=== PATIENT | female | born 1945 | race Caucasian/White ===

== ENCOUNTER 2019-09-28 01:48 | Inpatient (IN) ==
[~2019-09-28 01:48] MED LIST: NS 2,000 ML ONE
[2019-09-28] MEDS ORDERED: NS 1,000 ML IV ONE ×3 (01:54→05:43)
[2019-09-28] MEDS ORDERED: NS 500 ML IV ONE ×3 (01:54→03:21)
[2019-09-28] MEDS ORDERED: VANCOMYCIN 1 GM/NS 1 GM/250 ML IVPB IV ONE ×2 (01:57)
[2019-09-28] MEDS ORDERED: LEVAQUIN 750 MG/D5W 750 MG/150 ML IVPB IV ONE (01:57)
--- NOTE | 2019-09-28 02:06 | PROVIDER DOCUMENTATION ---
HPI-Fever - General Chief Complaint: DKA ALERT Stated Complaint: AMS Time Seen by Provider: 09/28/19 01:53 Source: EMS Unable to obtain history due to:: altered Allergies/Adverse Reactions: Patient Allergies Allergy/AdvReac Type Severity Reaction Status Date / Time amoxicillin trihydrate * Allergy ANAPHYLAXIS Verified 09/28/19 03:51 [From Amoxil] cephalexin [From Keflex] Allergy Unknown Verified 09/28/19 03:51 codeine Allergy ANAPHYLAXIS Verified 09/28/19 03:51 ondansetron HCl * Allergy MOUGH AND Verified 09/28/19 03:51 [From Zofran (as TONGU hydrochloride)] SWELLING phenazopyridine HCl * Allergy SWELLING Verified 09/28/19 03:51 [From Pyridium] Sulfa (Sulfonamide Allergy ANAPHYLAXIS Verified 09/28/19 03:51 Antibiotics) trimethobenzamide HCl * Allergy ANAPHYLAXIS Verified 09/28/19 03:51 [From Tigan] Home Medications: Home Medication List Medication Instructions Recorded Confirmed Last Taken Type Clopidogrel Bisulfate [Plavix] 75 mg PO QAM 05/03/15 11/06/18 07/27/18 History Insulin Lispro [Humalog] 15 unit SUBQ DAILY 05/03/15 11/06/18 08/16/18 History Metformin [Glucophage] 500 mg PO 4XDAY 05/03/15 11/06/18 08/16/18 History Insulin Detemir [Levemir] 35 unit SUBQ BID 07/14/16 11/06/18 08/16/18 20:00 History Pantoprazole [Protonix] 40 mg PO DAILY@0700 07/14/16 11/06/18 08/15/18 History Gabapentin 600 mg PO TID 08/10/18 11/06/18 08/16/18 20:00 History Levofloxacin [Levaquin] 500 mg PO DAILY 7 Days #7 tab 11/06/18 Unknown Rx Promethazine [Phenergan] 25 mg PO Q6H PRN PRN #20 tab 11/06/18 Unknown Rx Sulfamethoxazole/Trimethoprim 2 ea PO BID #20 tab 11/06/18 Unknown Rx [Bactrim Ds Tablet] - History of Present Illness-Fever Nature of Presenting Problem: hx from EMS. She has N/V/D since Wednesday. Increasing weekness today, no longer able to ambulate. No family available at initial exam. EMS reports that family gave 70 units insulin last pm, but she did not eat. No other hx available. When family arrived, said she herself had had surgery today, came home, found pt to be worse, to weak to stand. No fever known. Aded that pt has hx of UTI, can add nothing else Review of Systems - Adult - REVIEW OF SYSTEMS - ADULT ROS:: unobtainable per condition Constitutional: reports: other (unknown about fever) Eyes: reports: no symptoms reported Ears, Nose, Mouth & Throat: reports: no symptoms reported Gastrointestinal: reports: see HPI Neurological: reports: other (altered, weak, nonverbal) Psychiatric: reports: no symptoms reported Endocrine: reports: other (BS high) Past History - Adult - PAST MEDICAL HISTORY-ADULT Review of Records: reports: Medications Reviewed, Social history reviewed & non- contributory. Major Childhood Illnesses: reports: denies history Cardiovascular: reports: NC (stent placement) Respiratory: reports: denies history Gastrointestinal: reports: denies history Obstetrical/Gynecological: reports: denies history Genitourinary: reports: chronic UTI's Musculoskeletal: reports: denies history Neurological: reports: CVA Endocrine/Immune: reports: Diabetes Other Conditions: reports: denies history - IMMUNIZATION STATUS Childhood Immunizations: See Nurse Assessment Flu Vaccine: See Nurse Assessment - FAMILY HISTORY Family History: reviewed, not pertinent Physical Exam-General - PHYSICAL EXAM-ADULT Initial Vital Signs Reviewed: Yes - CONSTITUTIONAL General Appearance: severe distress, lethargic - EYES Eyes: PERRL/EOMI, pale conjunctivae - HEAD, EARS, NOSE, MOUTH & THROAT HENMT: other (membranes dry) - NECK Neck: supple - RESPIRATORY Respiratory: lungs clear, respiratory distress (mild) - CARDIOVASCULAR Cardiovascular: tachycardia - GASTROINTESTINAL (ABDOMEN) Abdominal Exam: non tender, soft, abnormal bowel sounds (decreased) - GENITOURINARY Female Genitalia/Pelvic Exam: deferred Rectal Exam: deferred - MUSCULOSKELETAL Back Exam: other (deferred due to pt condition) Extremity: normal inspection, other - SKIN Integumentary: other (decreased turgor, pale) - NEUROLOGIC Neurologic: other (untestable) - PSYCHIATRIC Psych/Mental Status: other (unresponsive to voice, pain) Progress - PLAN OF CARE/RESULTS Progress/Plan/Lab Results: Vital Signs - 8 hr 09/28/19 01:45 09/28/19 02:54 09/28/19 03:21 Temperature 98.2 F Pulse Rate 120 H 120 H 118 H Respiratory Rate 29 H 27 H 25 H Blood Pressure 80/38 98/47 83/50 O2 Sat by Pulse Oximetry 97 94 L 96 09/28/19 03:38 09/28/19 03:59 09/28/19 04:11 Temperature Pulse Rate 120 H 116 H 116 H Respiratory Rate 26 H 27 H 26 H Blood Pressure 93/60 98/48 100/54 O2 Sat by Pulse Oximetry 95 96 96 Laboratory Results - last 24 hr 09/28/19 09/28/19 09/28/19 01:50 01:50 01:50 WBC 26.98 H RBC 4.27 Hgb 10.8 L Hct 32.9 L MCV 77.0 L MCH 25.3 L MCHC 32.8 L RDW Std Deviation 13.9 Plt Count 239 MPV 9.8 Immature Gran % (Auto) 2.2 H Neut % (Auto) 90.1 H Lymph % (Auto) 5.0 L [place] % (Auto) 2.3 Eos % (Auto) 0.3 Baso % (Auto) 0.1 Immature Gran # (Auto) 0.60 H Neut # (Auto) 24.31 H Lymph # (Auto) 1.35 [place] # (Auto) 0.62 H Eos # (Auto) 0.08 Baso # (Auto) 0.02 Segmented Neutrophils 78 H Band Neutrophils 8 H Lymphocytes 10 L Monocytes 1 Metamyelocytes 2.0 Atypical Lymphocytes 1.0 Hypochromia OCCASIONAL Vacuolization 1+ Poikilocytosis 1+ Microcytosis OCCASIONAL Ovalocytes 1+ PT INR PTT (Actin FS) Specimen Type Sample Site pH pCO2 pO2 HCO3 Base Excess Oxyhemoglobin ABG O2 Sat (Calculated) ABG O2 Saturation ABG Carboxyhemoglobin ABG Methemoglobin Turner Test A-a O2 Difference Total Hemoglobin Lactate Liter Flow Blood Gas Modality FiO2 % Sodium Potassium Chloride Carbon Dioxide Anion Gap BUN Creatinine Estimated GFR/1.73 m2 BUN/Creatinine Ratio Glucose Calculated Osmolality Calcium Magnesium Total Bilirubin AST ALT Alkaline Phosphatase Creatine Kinase Troponin T Total Protein Albumin Globulin Albumin/Globulin Ratio Plasma Lactate 7.5 H* Urine Source Urine Color Urine Turbidity Urine pH Ur Specific [place] Urine Protein Ur Glucose (Stick) Ur Ketones (Stick) Urine Blood Urine Nitrite Urine Bilirubin Urobilinogen Dipstick Urine Leukocytes Urine WBC (Auto) Urine RBC (Auto) U Epithel Cells (Auto) Urine Bacteria (Auto) Acetone Level NEGATIVE 09/28/19 09/28/19 09/28/19 01:50 01:50 01:50 WBC RBC Hgb Hct MCV MCH MCHC RDW Std Deviation Plt Count MPV Immature Gran % (Auto) Neut % (Auto) Lymph % (Auto) [place] % (Auto) Eos % (Auto) Baso % (Auto) Immature Gran # (Auto) Neut # (Auto) Lymph # (Auto) [place] # (Auto) Eos # (Auto) Baso # (Auto) Segmented Neutrophils Band Neutrophils Lymphocytes Monocytes Metamyelocytes Atypical Lymphocytes Hypochromia Vacuolization Poikilocytosis Microcytosis Ovalocytes PT 16.2 H INR 1.23 PTT (Actin FS) 33.4 Specimen Type Sample Site pH pCO2 pO2 HCO3 Base Excess Oxyhemoglobin ABG O2 Sat (Calculated) ABG O2 Saturation ABG Carboxyhemoglobin ABG Methemoglobin Turner Test A-a O2 Difference Total Hemoglobin Lactate Liter Flow Blood Gas Modality FiO2 % Sodium 137 Potassium 3.8 Chloride 100 Carbon Dioxide 17 L Anion Gap 21 BUN 34 H Creatinine 3.0 H Estimated GFR/1.73 m2 15 BUN/Creatinine Ratio 11 Glucose 340 H Calculated Osmolality 295 Calcium 8.8 Magnesium 1.4 L Total Bilirubin 0.90 AST 113 H ALT 103 H Alkaline Phosphatase 194 H Creatine Kinase 146 Troponin T 0.429 H* Total Protein 6.8 Albumin 3.6 Globulin 3.0 Albumin/Globulin Ratio 1.0 Plasma Lactate Urine Source Urine Color Urine Turbidity Urine pH Ur Specific [place] Urine Protein Ur Glucose (Stick) Ur Ketones (Stick) Urine Blood Urine Nitrite Urine Bilirubin Urobilinogen Dipstick Urine Leukocytes Urine WBC (Auto) Urine RBC (Auto) U Epithel Cells (Auto) Urine Bacteria (Auto) Acetone Level 09/28/19 09/28/19 01:59 02:00 WBC RBC Hgb Hct MCV MCH MCHC RDW Std Deviation Plt Count MPV Immature Gran % (Auto) Neut % (Auto) Lymph % (Auto) [place] % (Auto) Eos % (Auto) Baso % (Auto) Immature Gran # (Auto) Neut # (Auto) Lymph # (Auto) [place] # (Auto) Eos # (Auto) Baso # (Auto) Segmented Neutrophils Band Neutrophils Lymphocytes Monocytes Metamyelocytes Atypical Lymphocytes Hypochromia Vacuolization Poikilocytosis Microcytosis Ovalocytes PT INR PTT (Actin FS) Specimen Type ARTERIAL Sample Site R RADIAL pH 7.42 pCO2 23 L pO2 73 HCO3 18.5 L Base Excess -8.2 L Oxyhemoglobin 94.2 L ABG O2 Sat (Calculated) 12.9 L ABG O2 Saturation 98.2 ABG Carboxyhemoglobin 2.60 H ABG Methemoglobin 1.5 Turner Test YES A-a O2 Difference 169.0 Total Hemoglobin 9.7 L Lactate 6.50 H* Liter Flow 4.5 Blood Gas Modality CAN[place]ULA FiO2 % 38.0 Sodium Potassium Chloride Carbon Dioxide Anion Gap BUN Creatinine Estimated GFR/1.73 m2 BUN/Creatinine Ratio Glucose Calculated Osmolality Calcium Magnesium Total Bilirubin AST ALT Alkaline Phosphatase Creatine Kinase Troponin T Total Protein Albumin Globulin Albumin/Globulin Ratio Plasma Lactate Urine Source CATH Urine Color ORANGE Urine Turbidity TURBID Urine pH 5.5 Ur Specific [place] 1.013 Urine Protein 200 A Ur Glucose (Stick) NEGATIVE Ur Ketones (Stick) NEGATIVE Urine Blood LARGE A Urine Nitrite NEGATIVE Urine Bilirubin NEGATIVE Urobilinogen Dipstick NORMAL Urine Leukocytes LARGE A Urine WBC (Auto) TNTC A Urine RBC (Auto) TNTC A U Epithel Cells (Auto) >10 A Urine Bacteria (Auto) 4+ Acetone Level Orders Category Date Time Status Admit - [facility] Routine AdmDCTranf 09/28/19 04:15 Active Cardiac Monitoring DIRECTED Care 09/28/19 01:54 Active [place] Cath Insertion ORDERED Care 09/28/19 01:54 Active IV Insertion ORDERED Care 09/28/19 01:54 Active IV Insertion ORDERED Care 09/28/19 01:54 Completed IV Insertion ORDERED Care 09/28/19 01:57 Active Intake and Output-Strict ORDERED Care 09/28/19 01:54 Active Intake and Output-Strict ORDERED Care 09/28/19 01:57 Active Notify MD of + Sepsis Screen NOW Care 09/28/19 01:54 Active Notify MD/PA/AUTO PORTER for exam NOW Care 09/28/19 01:54 Active Notify MD/PA/AUTO PORTER for exam NOW Care 09/28/19 01:57 Active Repeat Vital Signs .Blood Pressure Care 09/28/19 01:54 Active Repeat Vital Signs .Heart Rate Care 09/28/19 01:54 Active Repeat Vital Signs .Oxygen Saturation Care 09/28/19 01:54 Active Repeat Vital Signs .Respiratory Rate Care 09/28/19 01:54 Active Repeat Vital Signs .Temp Care 09/28/19 01:54 Active CHEST-1 VIEW [RAD] Stat Exams 09/28/19 01:54 Taken ABG [RESP] Routine Lab 09/28/19 02:00 Completed ACETONE SERUM [CHEM] Stat Lab 09/28/19 01:50 Completed BLOOD CULTURE [BLDCUL] Stat Lab 09/28/19 02:01 Ordered CBC WITH DIFF [HEME] Stat Lab 09/28/19 01:50 Completed CK PROFILE [SP CHEM] Stat Lab 09/28/19 01:50 Completed COMPREHENSIVE METABOLIC PANEL [CHEM] Stat Lab 09/28/19 01:50 Completed LACTATE, PLASMA [CHEM] Lab 09/28/19 05:00 Uncollected LACTATE, PLASMA [CHEM] Lab 09/28/19 08:00 Uncollected LACTATE, PLASMA [CHEM] Timed Lab 09/28/19 01:50 Completed MAGNESIUM [CHEM] Stat Lab 09/28/19 01:50 Completed PROTIME WITH INR [COAG] Stat Lab 09/28/19 01:50 Completed PTT [COAG] Stat Lab 09/28/19 01:50 Completed TROPONIN T Stat Lab 09/28/19 01:50 Completed URINALYSIS W/POSS RFLX CULT [URINALYSIS] Stat Lab 09/28/19 01:59 Completed URINE CULTURE [RM] Routine Lab 09/28/19 02:33 Ordered 0.9% Sodium Chloride Inj [Ns] 1,000 ml Med 09/28/19 01:54 Discontinued IV As Directed mls/hr 0.9% Sodium Chloride Inj [Ns] 1,000 ml Med 09/28/19 01:57 Discontinued IV As Directed mls/hr 0.9% Sodium Chloride Inj [Ns] 2,000 ml Med 09/28/19 01:47 Discontinued .ROUTE As directed 0.9% Sodium Chloride Inj [Ns] 250 ml Med 09/28/19 03:15 Active Phenylephrine [Kai-Synephrine] 50 mg IV As Directed mls/hr 0.9% Sodium Chloride Inj [Ns] 250 ml Med 09/28/19 03:15 Discontinued Phenylephrine [Kai-Synephrine] 50 mg IV As Directed mls/hr 0.9% Sodium Chloride Inj [Ns] 250 ml Med 09/28/19 03:02 Discontinued .ROUTE As directed 0.9% Sodium Chloride Inj [Ns] 500 ml Med 09/28/19 01:54 Discontinued IV 999 mls/hr 0.9% Sodium Chloride Inj [Ns] 500 ml Med 09/28/19 01:57 Discontinued IV 999 mls/hr 0.9% Sodium Chloride Inj [Ns] 500 ml Med 09/28/19 03:21 Discontinued IV KVO mls/hr Dextrose 5%-0.45% NaCl Inj [D5 1/2 Ns] 250 ml Med 09/28/19 03:15 Discontinued Norepinephrine [Levophed] 8 mg IV As Directed mls/hr Insulin Human Regular ([place] [Humulin R ([place])] Med 09/28/19 03:15 Discontinued 1 units .ROUTE .STK-MED ONE Insulin Human Regular [Humulin R] Med 09/28/19 03:13 Discontinued 6 unit IV NOW ONE Levofloxacin 750 mg/D5w [Levaquin 750 mg/D5w] Med 09/28/19 01:57 Discontinued 750 mg in 150 ml IV NOW Norepinephrine [Levophed] Med 09/28/19 03:02 Discontinued 8 mg .ROUTE .STK-MED ONE Phenylephrine [Kai-Synephrine] Med 09/28/19 03:04 Discontinued 50 mg .ROUTE .STK-MED ONE Vancomycin 1 gm/Ns Med 09/28/19 01:57 Discontinued 1 gm in 250 ml IV NOW Vancomycin 1 gm/Ns Med 09/28/19 01:57 Discontinued 1 gm in 250 ml IV NOW Oxygen Device Stat Oth 09/28/19 01:54 Active Transfer/Admit Order [TRANSFER] Routine Transfer 09/28/19 04:14 Ordered Result Diagrams: 09/28/19 01:50 09/28/19 01:50 - EKG 1 Time of EKG reading by physician:: 02:47 EKG Read and Signed by:: Hubert Garcia EKG Interpretation (*Must complete 3 of following elements*): Abnormal Rate: 120 Rhythm: sinus tach [place]: normal QRS: normal ST Wave: non-specific ST changes (laterally) - XRAY 1 XRAY Study: Chest Impression: Normal - CONSULTS/PCP/HOSPITALIST Notification #1 *Consult/PCP/Hospitalist*: Yunio Time Discussed: 03:14 Consult Disposition: Admit Departure - Departure Date of Disposition Decision: 09/28/19 Time of Disposition Decision: 02:07 DIAGNOSIS: Septic shock UTI (urinary tract infection) Qualifiers: Urinary tract infection type: site unspecified Hematuria presence: with hematuria Qualified Code(s): N39.0 - Urinary tract infection, site not specified Disposition: ADMITTED INPATIENT 09 Certified Medical Emergency: Emergent Condition: Critical Referrals and Follow-Ups: None,PCP [Primary Care Provider] - - Critical Care Note This patient required my direct & personal management of CC.: Yes Attestation - Physician/ ADOLFO Attestation Patient care was provided by Advanced Practice Provider:: No The physician spent face to face time with patient:: Yes Advanced Practice Provider documentation review:: Supervising physician onsite and consulted in the evaluation and care of this patient. The physician did have a face to face encounter with the patient. Sepsis: Tissue Perfusion Assmt - Physical Exam Assessment Date: 09/28/19 Time Assessment Initialized: 04:23 Vital Signs: Last Vital Signs Temp 98.2 F 09/28/19 01:45 Pulse 116 H 09/28/19 04:11 Resp 26 H 09/28/19 04:11 BP 100/54 09/28/19 04:11 Pulse Ox 96 09/28/19 04:11 Height 5 ft 4 in Weight 61.235 kg Lung Sounds:: lungs clear Heart Sounds:: Regular Capillary Refill Time: Less Than 2 Seconds Peripheral Pulse Evaluation:: radial (R): 2+ Skin Exam:: pale - Impression Impression:: Tissue Perfusion Adequate
[2019-09-28 02:07] LABS: URINE SOURCE CATH
[2019-09-28 02:14] LABS: BASO# 0.02 X1000 (0.0-0.2); BASO% 0.1 % (0.0-0.8); EOS# 0.08 X1000 (0.0-0.7); EOS% 0.3 % (0.0-10.0); HEMATOCRIT 32.9 % (37.0-47.0); HEMOGLOBIN 10.8 g/dL (12.0-16.0); IMM GRAN% 2.2 % (0.0-0.5); LYMPH# 1.35 X1000 (1.2-3.4); MCH 25.3 PG (27-31); MCHC 32.8 g/dL (33-37); MONO# 0.62 X1000 (0.11-0.59); MONO% 2.3 % (1.7-9.3); MPV 9.8 FL (7.4-10.4); NEUT# 24.31 X1000 (1.4-6.5); NEUT% 90.1 % (42.2-75.2); PLT 239 X1000 (130-400); RBC 4.27 XMIL (4.2-5.4); RDW 13.9 % (11.5-14.5); WBC 26.98 X1000 (4.8-10.8)
[2019-09-28 02:22] LABS: BE -8.2 mmoll (-3.0-3.0); BLOOD TYPE ARTERIAL; HCO3-(ACT) 18.5 mmoll (20.0-26.0); METHB 1.5 % (0.0-1.5); O2(CT) 12.9 mL/dL (15.0-23.0); O2HB 94.2 % (95.0-99.0); PCO2(98.6) 23 mmHg (35-45); PO2(98.6) 73 mmHg (60-100); SAMPLE BLOOD; SAO2 98.2 % (95.0-100.0); THB 9.7 g/dL (11.5-17.4); pH(98.6) 7.42 (7.35-7.45)
[2019-09-28 02:26] LABS: ALLEN TEST YES; MODALITY CANNULA
[2019-09-28 02:29] LABS: INR 1.23; PROTIME 16.2 Seconds (11.0-16.0)
[2019-09-28 02:30] LABS: UR EPITHELIAL CELLS >10 /HPF (<10); URINE BACTERIA 4+ /HPF; URINE RBC TNTC /HPF (<10); URINE WBC TNTC /HPF (<10)
[2019-09-28 02:30] LABS: PTT 33.4 Seconds (22.3-41.8)
[2019-09-28 02:31] LABS: BILIRUBIN URINE NEGATIVE (NEGATIVE); COLOR ORANGE; GLUCOSE URINE NEGATIVE (NEGATIVE); KETONE URINE NEGATIVE (NEGATIVE); SP GRAVITY URINE 1.013; TURBIDITY URINE TURBID (CLEAR)
[2019-09-28 02:32] LABS: BLOOD URINE LARGE (NEGATIVE); PH URINE 5.5; PROTEIN URINE 200 mg/dL (NEGATIVE); UROBILINOGEN URINE NORMAL (NORMAL)
[2019-09-28 02:33] LABS: LEUKOCYTES URINE LARGE (NEGATIVE); NITRITE URINE NEGATIVE (NEGATIVE)
[2019-09-28 02:34] LABS: ALBUMIN 3.6 g/dL (3.5-5.0); CALCIUM 8.8 mg/dL (8.8-10.2); MAGNESIUM 1.4 mg/dL (1.5-2.7); POTASSIUM 3.8 mmol/L (3.5-5.1); TOTAL BILIRUBIN 0.9 mg/dL (0.20-1.00); TOTAL PROTEIN 6.8 g/dL (6.3-8.3)
[2019-09-28 02:51] LABS: BANDS 8 % (0-1); LYMPHS 10 % (21-51); MONO 1 % (1-9); SEGS 78 % (42-75)
[2019-09-28 02:52] LABS: HYPOCHROM OCCASIONAL; MICROCYTOSIS OCCASIONAL; POIKILOCYTOSIS 1+
[2019-09-28 02:53] LABS: OVALOCYTES 1+; VACUOLES 1+
[2019-09-28] MEDS ORDERED: LEVOPHED ONE (03:02)
[2019-09-28] MEDS ORDERED: NS 250 ML ONE (03:02)
[2019-09-28] MEDS ORDERED: NEO-SYNEPHRINE ONE (03:04)
[2019-09-28] MEDS ORDERED: HUMULIN R IV ONE (03:13)
[2019-09-28] MEDS ORDERED: NEO-SYNEPHRINE 50 MG in NS 250 ML IV SCH (03:15)
[2019-09-28] MEDS ORDERED: LEVOPHED 8 MG in D5 1/2 NS 250 ML IV SCH (03:15)
[2019-09-28] MEDS ORDERED: HUMULIN R (PARKWAY) ONE (03:15)
[2019-09-28] MEDS: NEO-SYNEPHRINE 50 MG in NS 250 ML IV SCH ×6 (03:18→23:30)
[2019-09-28] MEDS ORDERED: NS 1,000 ML ONE (05:38)
--- NOTE | 2019-09-28 05:49 | Diag Imaging Result Doc PS360 ---
EXAM: CHEST-1 VIEW HISTORY: sepsis TECHNIQUE: Single view COMPARISON: 04/03/2018 and 07/15/2016 FINDINGS: The lungs are well expanded. The heart is not enlarged. The vessels are not distended. There are no infiltrates. No effusion identified. Possible new tiny nodule in the left apex. IMPRESSION: Possible new tiny nodule within the left apex. Electronically signed by Mickey Powell 09/28/2019 5:47 AM
[2019-09-28] MEDS ORDERED: SODIUM CHLORIDE 0.9% INJ PRN (07:20)
[2019-09-28] MEDS ORDERED: PHENERGAN IV PRN (07:20)
[2019-09-28] MEDS ORDERED: HUMALOG SUBQ SCH (07:20)
[2019-09-28] MEDS ORDERED: FLAGYL 500 MG/NS 500 MG/100 ML IVPB IV SCH (07:20)
[2019-09-28] MEDS ORDERED: HUMALOG SUBQ ONE ×2 (07:20→17:00)
--- NOTE | 2019-09-28 08:07 | EKG Report ---
Test Performed on : 09/28/2019 07:55:19 AM Test Reason : Afib Blood Pressure : / mmHG Vent. Rate : 128 BPM Atrial Rate : 128 BPM P-R Int : 140 ms QRS Dur : 064 ms QT Int : 310 ms P-R-T Axes : 063 073 104 degrees QTc Int : 452 ms Sinus tachycardia. Septal infarct , age undetermined ST & T wave abnormality, consider lateral ischemia Abnormal ECG When compared with ECG of 28-SEP-2019 05:42, (Unconfirmed) ST no longer elevated in Inferior leads Nonspecific T wave abnormality now evident in Inferior leads T wave inversion now evident in Lateral leads Confirmed by Pradeep CRAVEN, Davian ([id number]) on 09/28/2019 8:21:58 AM
[2019-09-28] MEDS: MERREM 1 GM in NS 50 ML IV SCH ×3 (08:13→23:30)
[2019-09-28] MEDS: LR 1,000 ML IV SCH ×3 (08:14→23:29)
--- NOTE | 2019-09-28 08:37 | EKG Report ---
Test Performed on : 09/28/2019 05:42:10 AM Test Reason : ER Blood Pressure : / mmHG Vent. Rate : 136 BPM Atrial Rate : 136 BPM P-R Int : 136 ms QRS Dur : 060 ms QT Int : 276 ms P-R-T Axes : 056 066 085 degrees QTc Int : 415 ms Sinus tachycardia. Nonspecific ST abnormality Abnormal ECG When compared with ECG of 28-SEP-2019 02:45, (Unconfirmed) Nonspecific T wave abnormality no longer evident in Inferior leads Unconfirmed Result
[2019-09-28] MEDS ORDERED: HUMULIN R 100 UNIT in NS 100 ML IV SCH (09:00)
--- NOTE | 2019-09-28 09:02 | EKG Report ---
Test Performed on : 09/28/2019 02:45:36 AM Test Reason : ER Blood Pressure : / mmHG Vent. Rate : 120 BPM Atrial Rate : 120 BPM P-R Int : 126 ms QRS Dur : 070 ms QT Int : 328 ms P-R-T Axes : 077 064 092 degrees QTc Int : [address] & T wave abnormality, consider lateral ischemia Abnormal ECG When compared with ECG of 10-AUG-2018 10:44, ST now depressed in Lateral leads Nonspecific T wave abnormality now evident in Inferior leads Unconfirmed Result
[2019-09-28] MEDS: ASPIRIN PO SCH (09:32)
--- NOTE | 2019-09-28 09:42 | PROGRESS NOTE ---
DATE: 09/28/2019 SUBJECTIVE: This morning, Ms. Louise refers to be doing well, except that she still remains confused. She says she came in because she was having some burning urination. The patient is confused and is not able to give me details of any interim history. Per the ER documentation, it seems she was brought in because of nausea and vomiting, increasing weakness, and inability to ambulate any longer. Ms. Louise has been here before for a urinary tract infection. She seems to have history of diabetes mellitus and neuropathy. She denies any chest pain. Ms. Louise initially presented to [facility], and she was transferred from there to here for higher level of care. During her evaluation at [place], she was found to be hypotensive with a presenting blood pressure of 80/38, pulse of 120. At some point, her temperature also went up to 100.7. Her initial laboratory data revealed that she had elevated WBC, predominantly neutrophils, with 8% bands, and she also had 7.5 of lactate level on serum studies. OBJECTIVE: Vital Signs: This morning, blood pressure is 104/49, pulse of 133, respirations 28, temperature is 100.5 degrees, the patient is saturating 94% on 2 L. General: Ms. Louise is a 74- year-old, elderly, female. She is in bed. HEENT: She looks dry on the mucous, but pink. Chest: Good air entry bilaterally. I did not hear any crepitations. Cardiovascular: Tachycardic, but no murmurs. GI: Abdomen is soft. Some old infraumbilical surgical scar noted. Extremities: No pedal edema. SEASONAL CLERK: The patient is awake, alert, oriented to person, but disoriented to place and time. Follows basic commands and moves all extremities. LABORATORY DATA: WBC is 26.98, hemoglobin is 10.8, platelet count of 239,000. Chemistry is also reviewed. The patient's bicarb is 17, with a gap of 21. Creatinine is up to 3.0. AST and ALT are also minimally elevated. Troponins have also been elevated. The patient's urinalysis is remarkably abnormal. Of note, Ms. Louise has a history of multiple recurrent UTIs. She underwent cystoscopic exam with bilateral ureteral pyelograms on 08/17/[address] Sheffield. ASSESSMENT: 1. Shock, presumably septic, and the source is most likely from the urinary tract. Patient has hx of multiple recurrent urinary tract infections. The patient's blood pressure has improved. She was fluid resuscitated in the emergency room. We are going to continue with lactated Ringer's at 125 mL/h. Will also continue with the phenylephrine, but start titrating it down as needed. The patient has blood cultures and urine cultures done, and she is currently on antimicrobial coverage. She has had multiple Escherichia coli, Klebsiella in the past, and I am concerned this could have turned into extended spectrum beta-lactamase, so I have added carbapenem to her antibiotic coverage today. 2. Acute kidney injury, most likely from septic shock. We are going to continue to monitor this. The patient could potentially go into acute tubular necrosis. 3. High anion gap metabolic acidosis secondary to lactic acid. 4. Severe lactic acidosis secondary to septic shock. Will continue monitoring this, and the patient will continue on adequate fluid resuscitation. 5. Clinical volume depletion. Will continue with fluids. 6. Elevated glucose. So far, the patient's toxicology acetone is negative. However, I would not be surprised that she could still be in diabetic ketoacidosis because of the fact that beta- hydroxybutyrate cannot be determined here in our lab. She is going to be on insulin regimen for hyperglycemia intensive care unit protocol. 7. Transaminitis, presumably from ischemic liver injury. Will continue to monitor this. 8. Troponin elevation. The patient denies any chest pain. The trace on the telemetry monitoring does not show any ST-segment or T-wave abnormality. We will, however, get a 12-lead and monitor the troponins. Will get her aspirin for now, and get echocardiogram, and also get Cardiology to evaluate her. I presume this is most likely due to sepsis- induced demand mismatch from the myocardium. TIME SPENT: Critical time spent is 1 hour. cc: MD ANNE MARIE Bustillos
[2019-09-28] MEDS ORDERED: D5W 1,000 ML IV SCH ×2 (09:45→10:42)
[2019-09-28 09:55] LABS: HEMOGLOBIN A1C 11.4 % (4.8-6.0)
[2019-09-28 10:32] LABS: CK INDEX 1.4 (0.0-2.5); CK-MB 10.89 ng/mL (0.0-5.0)
[2019-09-28 10:47] LABS: CALCIUM 7.8 mg/dL (8.8-10.2); CREATININE 2.6 mg/dL (0.5-0.9); POTASSIUM 3.7 mmol/L (3.5-5.1)
--- NOTE | 2019-09-28 13:18 | HISTORY AND PHYSICAL ---
PRIMARY CARE PROVIDER: Dr. Karsten Gary. CHIEF COMPLAINT: Family at bedside. Nausea, vomiting, diarrhea, weakness, hyperglycemia. HISTORY OF PRESENT ILLNESS: Ms. Louise is a 74-year-old female, who carries a past medical history of CVA x2 in 2008 and 2010, diabetes mellitus insulin dependent, diabetic neuropathy, coronary artery disease status post PCI, hiatal hernia, frequent urinary tract infections. Family at bedside reports that she had some episodes of vomiting on Wednesday, diarrhea on Wednesday and nothing on Wednesday. Yesterday, her daughter had arm surgery, and when she came home she was laying back in the recliner and was stating that she just felt weak and did not feel like herself. She became nauseated again and was not even able to hold down water. The daughter checked her blood sugar; it was over 500, so she called EMS and had her brought to [facility] where she was found to be in septic shock and had a urinary tract infection and hyperglycemia without DKA with a white count of 26 and a lactate of 6.5, and a positive troponin, as well as acute kidney injury. Due to lack of subspecialty care, the patient was transferred [facility]. She was initiated on broad-spectrum antibiotics, fluid resuscitation. We are consulting Cardiology, trending her troponins checking echocardiogram, following her EKGs, awaiting urine culture and repeating laboratory data. PAST MEDICAL HISTORY: CVA, diabetes, diabetic neuropathy, coronary artery disease status post PCI, hiatal hernia. PAST SURGICAL HISTORY: Hysterectomy, elbow surgery, cholecystectomy, hiatal hernia. FAMILY HISTORY: Positive for mother with diabetes and CAD. Father of CAD at the age of 62. SOCIAL HISTORY: He lives with daughter. No tobacco and no alcohol. ALLERGIES: To amoxicillin, Keflex, codeine, Pyridium, sulfa, and Tigan. CURRENT MEDICATIONS: Per EMR. REVIEW OF SYSTEMS: Hard to obtain. The patient just mumbles. Does not really answer any questions. Most of the history is taken from family. PHYSICAL EXAMINATION: VITAL SIGNS: Temperature is 98.5 degrees, heart rate 125, respirations 29, blood pressure 93/53, O2 is 93% on 2 L nasal cannula. GENERAL: Ms. Louise is an ill-appearing, 74-year-old female, who is lying in the bed in the ICU. HEENT: Atraumatic, normocephalic. PERRL. NECK: Supple. Trachea midline. CARDIOVASCULAR: S1, S2 appreciated. No murmurs, gallops, rubs noted. RESPIRATORY: Lung sounds clear bilaterally; bilaterally decreased in the bases. GASTROINTESTINAL: Soft, nontender, nondistended. Hypoactive bowel sounds. LOWER EXTREMITIES: Negative for edema. SKIN: Warm, dry, pale. Mucous membranes are extremely dry. NEUROLOGIC: She was not really able to answer any questions. She is somewhat altered. Most information was obtained from family. DIAGNOSTIC DATA: Chest x-ray: Possible tiny nodule within the left apex. Initial EKG with sinus tachycardia with nonspecific ST abnormality at 136 beats per minute. Second EKG with sinus tachycardia with septal infarct with ST and T-wave abnormality, consider lateral ischemia. LABORATORY DATA: White count of 26, hemoglobin and hematocrit of 10 and 32, platelet count is 239. Blood gas: A pH of 7.42, pCO2 of 23, PO2 of 73, bicarbonate of 18, base excess of -82, O2 of 98. Lactate 6.5 on nasal cannula. Sodium 137, potassium 3.8, carbon dioxide 17, anion gap 21. BUN 34, creatinine 3.0, blood glucose is 340. Mag 1.4, AST 113, ALT 103, alkaline phosphatase 194. CK 146. Initial troponin was 0.429. Repeat troponin was 0.318. Repeat lactate 5.8. Urinalysis: 4+ bacteria, too numerous to count RBCs, too numerous to count WBCs, large leukocytes, large blood, negative for nitrates, 200 protein, turbid orange. ASSESSMENT AND PLAN: 1. Septic shock secondary to urinary tract infection. The patient was given intravenous fluid boluses, broad-spectrum antibiotics and is now on pressors in the intensive care unit. She has an acute kidney injury with evidence of injury to her liver, as well as elevated cardiac enzymes. We will continue with intravenous fluids, broad-spectrum antibiotics. Urine culture is currently pending. 2. Elevated troponin. (possibly secondary to OSMANI) Patient had not been complaining of chest pain. However, she does have a history of coronary disease status post percutaneous coronary intervention. She does have some abnormalities on her electrocardiogram with ST and T-wave changes. We have consulted Dr. Gipson, ordered an echocardiogram. She is not complaining of any chest pain at this time. She does say that she feels bad. 3. Transaminitis due to acute liver injury. Will repeat LFTs in the morning. 4. High anion gap metabolic acidosis secondary to infection. Will continue with intravenous fluids 5. Severe Lactic acidosis secondary to #1 continue with treatment 6. Hyperglycemia. The patient has been placed on an insulin drip without diabetic ketoacidosis. 7. Nausea and vomiting. We will continue with Phenergan as needed. 8. Acute kidney injury. Patient does not appear to have any chronic kidney disease. We will continue with intravenous hydration. 9. Hypomagnesemia. Will replenish. Recheck in the morning. Further recommendations to follow physician evaluation, laboratory and diagnostic data. Dictated by ARACELI Woods for Salo Drummond MD cc: MD Karsten Bustillos MD MTDD
--- NOTE | 2019-09-28 13:25 | EKG Report ---
Test Performed on : 09/28/2019 10:53:37 AM Test Reason : HR 140's Blood Pressure : / mmHG Vent. Rate : 144 BPM Atrial Rate : 144 BPM P-R Int : 114 ms QRS Dur : 074 ms QT Int : 274 ms P-R-T Axes : 044 047 092 degrees QTc Int : 424 ms Sinus tachycardia. Nonspecific ST and T wave abnormality Abnormal ECG When compared with ECG of 28-SEP-2019 07:55, Criteria for Septal infarct are no longer present Nonspecific T wave abnormality, improved in Inferior leads Confirmed by Pradeep CRAVEN, Davian ([id number]) on 09/29/2019 10:35:26 AM
[2019-09-28] MEDS ORDERED: SOLU-CORTEF IV ONE (13:46)
[2019-09-28 13:53] LABS: ALLEN TEST YES; BE -8.1 mmoll (-3.0-3.0); BLOOD TYPE ARTERIAL; HCO3-(ACT) 18.6 mmoll (20.0-26.0); O2(CT) 13.9 mL/dL (15.0-23.0); O2HB 95.3 % (95.0-99.0); PCO2(98.6) 19 mmHg (35-45); PO2(98.6) 73 mmHg (60-100); SAMPLE BLOOD; SAO2 97.5 % (95.0-100.0); THB 10.3 g/dL (11.5-17.4); pH(98.6) 7.47 (7.35-7.45)
[2019-09-28 13:54] LABS: MODALITY CANNULA
[2019-09-28] MEDS ORDERED: ATIVAN IV PRN (14:02)
[2019-09-28] MEDS ORDERED: MORPHINE IV PRN (14:10)
[2019-09-28 14:25] LABS: CALCIUM 7.3 mg/dL (8.8-10.2); CREATININE 2.7 mg/dL (0.5-0.9); POTASSIUM 4.4 mmol/L (3.5-5.1)
--- NOTE | 2019-09-28 14:48 | Diag Imaging Result Doc PS360 ---
EXAM: CHEST-PORTABLE HISTORY: post intubation TECHNIQUE: Single view COMPARISON: 2:14 AM FINDINGS: There is an endotracheal tube with its tip located 2 to 3 cm above the lenin. A nasogastric tube overlies the esophagus and stomach. There are infiltrates or atelectasis in the left base. No cardiomegaly. No pulmonary edema. IMPRESSION: Development of infiltrates or atelectasis in the left lung base Electronically signed by Mickey Powell 09/28/2019 2:46 PM
[2019-09-28] MEDS: ATIVAN 20 MG in NS 190 ML IV SCH (15:43)
--- NOTE | 2019-09-28 15:43 | ECHO REPORT ---
ORDER DATE: 09/28/2019 INTERPRETING PHYSICIAN: Dr. Steven Ascencio ECHOCARDIOGRAPHIC MEASUREMENTS: 1. Interventricular septum: 1.2 cm. 2. Left ventricular posterior wall: 1.4 cm. 3. Diastolic diameter: 4.2 cm. 4. Left atrium: 3.0 cm. 5. Aorta: 2.1 cm. SUMMARY OF THE 2-DIMENSIONAL IMAGIN. Technically suboptimal study. 2. Poor acoustic window. 3. Normal left ventricular cavity size. 4. Estimated ejection fraction of 50 to 55%. However, tachycardia was noted. This could overestimate the ejection fraction. 5. Endocardium not well visualized. 6. There appears to be apical and anteroseptal hypokinesis. 7. Would recommend Optison scan to evaluate LV systolic function. 8. Aortic valve leaflets are trileaflet. 9. Pulmonic valve was normal. 10. There is mild pulmonary regurgitation. 11. Mitral valve was normal. 12. Mitral valve leaflets revealed calcification of the mitral valve leaflet. 13. Tricuspid valve was normal. 14. There is mild mitral regurgitation. 15. There is grade 1 diastolic dysfunction. 16. There is no aortic stenosis or regurgitation. 17. Mild tricuspid regurgitation. 18. Peak velocity across the tricuspid valve was 2.6 meters per second. 19. There is no pericardial effusion. 20. Anterior echo-free space suggestive of pericardial fat pad noted. cc: MD Salo Morgan MD
--- NOTE | 2019-09-28 16:33 | Diag Imaging Result Doc PS360 ---
EXAM: US RENAL 2 (RETROPER) COMPLETE INDICATION: decreased renal function TECHNIQUE: COMPARISON: 07/15/2016 FINDINGS: There is a 1 cm echogenic focus that appears to exhibit shadowing associated with the left kidney. This probably represents an intrarenal stone. The kidneys are normal in echotexture, otherwise. No solid renal mass or hydronephrosis is identified. The right kidney measures 10.1 cm and the left kidney measures 9.9 cm in the greatest longitudinal axes. Right renal cortex measures 0.8 cm and the left renal cortex measures 1 cm in thickness. There is a Segovia catheter in urinary bladder and the bladder is completely collapsed. IMPRESSION: Possible nonobstructing intrarenal stone on the left. Unremarkable renal ultrasound, otherwise. Electronically signed by Brooks Weinstein 09/28/2019 4:30 PM
[2019-09-28] MEDS ORDERED: VANCOMYCIN IV PER PHARMACY MISC SCH (16:45)
[2019-09-28] MEDS ORDERED: OFIRMEV 1000 MG/ISOTONIC SOLN 1,000 MG/100 ML BOTTLE IV ONE (16:52)
--- NOTE | 2019-09-28 17:04 | CARDIOLOGY CONSULTATION ---
DATE: 09/28/2019 CONSULTATION REQUESTED BY: Hospitalist service. PRIMARY DOCTOR: Karsten Gary MD FINANCIAL SERVICES REP: The patient has no airport operations specialist. REASON FOR CONSULTATION: Patient with septicemia and also possible myocardial infarction. HISTORY OF PRESENT ILLNESS: Ms. Louise is a 74-year-old female. According to the daughter for some time, she has been having cycles of nausea, vomiting and diarrhea. Previous episode happened on September 24. Then yesterday the daughter says that she went out to take care of a problem that she has with her hand, and when she came back home she found her mother vomiting, having diarrhea, (malodorous), and getting weak. The patient reported being very cold, and she did not have any specific chest pain, although her abdomen was very tender. Over the course of the ensuing hours, she continued to get worse, and then the family decided to bring her to the emergency room. She came into the ER at about midnight. They did a chest x-ray that shows possible new tiny nodule within the left apex. There are no infiltrates in the lung. A 12 lead ECG shows sinus tachycardia with diffuse ST abnormality that on the first EKG was not that prominent, but then subsequently appears to be more pronounced. Her blood work indicates a BUN of 34 with a creatinine of 3, white cell count of 26,980 with left shift. Her blood gases showed a pO2 of 73 with a pCO2 of 23 with an FiO2 of 0.38, indicating a significant arterial alveolar difference of 169 mmHg. The additional blood work shows that her AST is 113, ALT 103, alkaline phosphatase 194. Her troponin levels have been checked twice, first at 1:50 in the morning. The level is 0.429 ng/mL and the 2nd one at 4:56 in the morning is 0.318 ng/mL. There are more blood tests pending. The patient at this time is a little confused. Her oral mucosa is very dry. She can not really talk well. Her daughter, Mary, is at the bedside and she provides most of the information. PAST MEDICAL HISTORY: Positive for coronary heart disease. She had a prior myocardial infarction in 2005, taken to [facility]. They put 2 stents there. I believe one is in the LAD. On the heart catheterization,there was evidence of 3 vessel coronary disease involving the circumflex, OM, branch and also the right coronary artery, plus the LAD lesion. Unfortunately, the patient has not had regular cardiology followup. They believe they saw Dr. Ascencio at some point. However, I could not find records in my office. In 2014, she was admitted to the hospital. They did a stress test that showed fixed inferior defect, but again, there was no followup at the office thereafter. She has hypertension, hyperlipidemia. The patient has been plagued by recurrent urinary tract infections, which have prompted admissions to the hospital. Dr. Sheffield has been seeing her for that. The patient has diabetes mellitus type 2. The patient has suffered 2 strokes, one in 2008 and then the second one in July 2011 that was really a disabling stroke and left her with a very weak left leg, and since then she has to get around using a walker. PAST SURGICAL HISTORY: positive for diverticular disease. hysterectomy, and tennis elbow repair. FAMILY HISTORY: Really noncontributory. SOCIAL HISTORY: The patient retired from [employer] in 2005. She worked there for 22 years. The patient is living currently with daughter, Mary, and granddaughter. She had a total of 4 children. HABITS: She has never been a smoker nor a drinker. HOME MEDICATIONS: Her home medications at the time of this dictation included clopidogrel 75 daily, gabapentin 600 three times a day, insulin Levemir 35 units twice a day, Humalog 15 units daily, Levaquin 500 daily, metformin 500 four times a day, Protonix 40 mg daily, Phenergan 25 mg every 6 hours, Bactrim twice a day. ALLERGIES: She is allergic to codeine, cephalexin, amoxicillin, Zofran, sulfa drugs. She is also allergic to try trimethobenzamide. REVIEW OF SYSTEMS: Really not obtainable other than the fact that her functional capacity is limited due to previous stroke. She has to get around with a walker, and she has been having issues with easy choking when she eats. She is also having issues with cycles of diarrhea and vomiting. PHYSICAL EXAMINATION: Vital Signs: Today blood pressure is 93/53, temperature 95 degrees, pulse 125, respirations 29. The patient is awake; however, she is somewhat confused. Oral mucosa very dry. She is not jaundiced. Somewhat pale. HEENT: Unremarkable. Chest: Diminished breath sounds diffusely. Heart: Sounds are tachycardic, regular. I do not hear a gallop or murmur. Abdomen: Not distended. However, appears to be diffusely tender and bowel sounds are diminished. Extremities: Showed decreased pulses. No peripheral edema. Neurologic: She follows some basic commands. She appears to be generally weak. IMPRESSION: 1. The patient who presents with what appears to be acute renal failure probably secondary to dehydration/septicemia. 2. A long-term history of diabetes mellitus. 3. Elevated troponin levels, possible non-ST myocardial infarction. 4. History of 3 vessel coronary atherosclerosis, prior myocardial infarction and stent to the left anterior descending in 2005. 5. History of 2 strokes in the past with disabling stroke in 2010. Limited functional capacity as a consequence of that. 6. Suspect recurrent urinary tract infection. 7. Suspect diabetic gastroparesis and also possible neurological dysphagia. RECOMMENDATION: At this time, the patient requires aggressive hydration because she is in acute renal failure, dehydrated. Sepsis needs to be controlled. We will follow her conservatively from the cardiac viewpoint. We cannot intervene at this time. There is really no criteria for urgent catheterization on her. She will need some DVT prophylaxis with enoxaparin. We will follow her, and we will continue to trend EKGs and cardiac enzymes. Prognosis is guarded because of previous strokes and previous myocardial infarction. Echocardiogram has been requested. We will review and advise. cc: Steven Gipson MD MTD
--- NOTE | 2019-09-28 17:27 | PROGRESS NOTE ---
DATE: 09/28/2019 SUBJECTIVE: This afternoon we came to re-evaluate Ms. Louise and we saw that she was more obtunded. She was less responsive. Heart rate was over 150. Respiration was almost 40. Her blood pressure systolic was 93, MAP was about 61. The son and the daughter including other family members were at the bedside. We had an extensive discussion with the entire family. At this point, they want Ms. Louise to be DNR level 2. They do not want any chest compression or any electrical shocks if her heart should go into any asystole or any fatal arrhythmias. However, they did consent to have her electively intubated and give the antibiotics time and a chance to see if that is going to work. ASSESSMENT/PLAN: As we were talking, I see Ms Louise quite hemodynamically unstable and I think her mentation is getting worse. I think we need to electively intubate her to prevent any rushed intubation. I have consulted Anesthesia and they have come to do the intubation. We will consult Pulmonary Medicine. We have also consulted Infectious Disease and Nephrology. The patient has been seen by Cardiology today. cc: Salo Drummond MD
[2019-09-28] MEDS ORDERED: CETACAINE ONE (17:45)
[2019-09-28 18:25] LABS: CK INDEX 2.1 (0.0-2.5); CK-MB 25.69 ng/mL (0.0-5.0)
[2019-09-28 21:36] LABS: CALCIUM 7.2 mg/dL (8.8-10.2); POTASSIUM 4.8 mmol/L (3.5-5.1)
--- NOTE | 2019-09-28 21:46 | NEPHROLOGY CONSULTATION ---
DATE: 09/28/2019 REASON FOR ADMISSION: Altered mental status with hypoglycemia. Family at the bedside. REASON FOR CONSULT: Acute kidney injury. CONSULTING PHYSICIAN: Dr. Drummond. HISTORY OF PRESENT ILLNESS: Ms. Louise is a 74-year-old white female who had been taken to [facility] by EMS this a.m. after family found her with altered mental status. They had stated that her blood sugars were greater than 500 at [facility]. She was found to be in septic shock with an elevated white count greater than 25. Her lactate was greater than 7. They had determined that she had a urinary tract infection with hyperglycemia without DKA. She has elevated troponin. She has recently been intubated. She has acute kidney injury earlier this a.m. with a creatinine of 3. Now she presents with a creatinine of 2.6 after 3 L fluid resuscitation. The patient was transferred to [facility]'s ICU. Upon initiation, she had already been given broad-spectrum antibiotics and fluid resuscitation. Cardiology was consulted. Heart rate is currently in the 140 to 150 range, status post intubation. She has elevated troponins. EKG had been ordered, indicating sinus rhythm with tachycardia with possible septal infarct. ST-T wave abnormalities noted with consideration to possible lateral ischemia. The patient is unable to give review of systems. There is no family at the bedside. Nurse relates that daughter had stated she had nausea and vomiting for approximately 2 to 3 days prior to coming in to the emergency room. She had given her insulin the night before, woken up this a.m. with altered mental status and lethargy. They denied chest pain. They denied any fever or chills. No recent falls. PAST MEDICAL HISTORY: Per chart: 1. CVA times , 2008 and 2010. 2. Diabetes mellitus type 2, insulin dependent. 3. Diabetic neuropathy. 4. Coronary artery disease, status post PCI. 5. Hiatal hernia. 6. Frequent urinary tract infections. PREVIOUS SURGICAL HISTORY: 1. Hysterectomy. 2. Elbow surgery. 3. Cholecystectomy. 4. Hiatal hernia. FAMILY HISTORY: Mother with diabetes and coronary artery disease, . Father of coronary artery disease at the age of 62. SOCIAL HISTORY: She lives with her daughter. No tobacco, alcohol or illicit drug use documented. ALLERGIES: Listed as amoxicillin, Keflex, codeine, Pyridium, sulfa, and Tigan. CURRENT MEDICATIONS: Under review. Those are not documented on the chart at this time. REVIEW OF SYSTEMS: Unable to obtain. Most information obtained from current chart. CURRENT VITAL SIGNS: Temperature 99.2 degrees, blood pressure 95/51, heart rate 142, respirations are 33. She is currently on 100% FiO2. Her last recorded saturation is 93 to 94 percent. She has had 3 L in. She has only 20 mL out to Segovia catheter. LABS: Sodium is 138, potassium 3.7, chloride 104, CO2 16, BUN 35, creatinine 2.6, glucose 66. Her anion gap is 18, calcium 7.8. Plasma lactate is down to 5.8. White count 26.98, hemoglobin 10.8, hematocrit 32.9, with a platelet count of 239,000. The patient had an acetone that was negative. Positive troponins, continuing to trend upward. ABGs: PH 7.47, CO2 19, PO2 73, bicarb 18.6. This was on 4 L with a plasma lactate of 4.6. The patient is currently on LR at 125 mL an hour. She has been given vancomycin and Levaquin and Merrem during this hospital stay in the last 12 to 14 hours. These are renally dosed. She is now intubated. Dr. Cole is following. Dr. Gipson is aware of tachycardia. PHYSICAL EXAMINATION: General: This is a 74-year-old white female. She is currently resting in bed. She is unresponsive secondary to recent medication and sedation for intubation. She is ill- appearing. No acute distress. HEENT: Normocephalic, atraumatic. Conjunctiva is slightly reddened. She has sluggish pupils. Mucous membranes are dry. Oral ET tube is in place. NG tube remains in place to right naris. Currently has pink liquid in the tubing and it is not attached to low intermittent suction, currently clamped. Cardiovascular: She is tachycardic. Heart rate is in the 140s to 150s. Unable to determine murmur or gallop secondary to the heart rate. No heave palpated. No rub palpated. Respiratory: Her lungs are diminished bilaterally with faint crackles to the anterior area. This may be more upper respiratory. Abdomen: Soft, nontender. Positive bowel sounds. Hypoactive. Genitourinary: Segovia catheter is in place. Skin: Warm and dry without rashes or lesions. Neurological: As mentioned above. ASSESSMENT AND PLAN: 1. Acute kidney injury. This could possibly be multifactorial, secondary to urosepsis, respiratory failure, and tachycardic state. More than likely this is acute tubular necrosis. We will check urine electrolytes, renal ultrasound. Continue intravenous fluid bolus. Currently on Lactated Ringer's. 2. Electrolytes and acid-base balance. Potassium of 3.7, carbon dioxide of 16, though patient has recently been intubated. We will hold in determining if she needs any bicarbonate replacement. Her anion gap is elevated at 18 with a plasma lactate of 5.8. 3. Anemia. This is stable. 4. Sepsis. The patient has currently been treated with renal dosed antibiotics. 5. Tachycardia, followed by Cardiology, with elevated troponins. I would like to thank you for allowing us to follow with this patient. Dictated by ARACELI Baker for London Haines MD cc: ARACELI Baker MD
[2019-09-28] MEDS: HUMALOG SUBQ SCH (21:59)
[2019-09-28] MEDS: LOVENOX SUBQ SCH (21:59)
--- NOTE | 2019-09-28 22:19 | PROVIDER PROGRESS NOTE ---
Progress Note Pulmonary additional note: Case evaluated and consult dictated. eval time >30 minutes.
[2019-09-28 23:04] LABS: UR CREAT RANDOM 113.4 mg/dL (11-20)
[2019-09-29] MEDS ORDERED: LEVAQUIN 500 MG in NS 100 ML IV SCH (02:00)
[2019-09-29] MEDS: NEO-SYNEPHRINE 50 MG in NS 250 ML IV SCH ×3 (04:44→21:19)
[2019-09-29 05:02] LABS: ALLEN TEST YES; BE -14.4 mmoll (-3.0-3.0); BLOOD TYPE ARTERIAL; HCO3-(ACT) 13.7 mmoll (20.0-26.0); METHB 0.5 % (0.0-1.5); O2(CT) 14.8 mL/dL (15.0-23.0); O2HB 97.9 % (95.0-99.0); PO2(98.6) 150 mmHg (60-100); SAMPLE BLOOD; SAO2 99.6 % (95.0-100.0); SRATE 15 BPM; THB 10.5 g/dL (11.5-17.4); TVOL 500 mL; pH(98.6) 7.33 (7.35-7.45)
[2019-09-29 05:06] LABS: PCO2(98.6) 18 mmHg (35-45)
[2019-09-29 05:07] LABS: MODALITY VENTILATOR
[2019-09-29 05:45] LABS: BASO# 0.03 X1000 (0.0-0.2); BASO% 0.1 % (0.0-0.8); EOS# 0.05 X1000 (0.0-0.7); EOS% 0.2 % (0.0-10.0); HEMATOCRIT 27.8 % (37.0-47.0); HEMOGLOBIN 9.1 g/dL (12.0-16.0); IMM GRAN# 6.19 X1000 (0.0-0.04); IMM GRAN% 25.3 % (0.0-0.5); LYMPH# 1.49 X1000 (1.2-3.4); LYMPH% 6.1 % (20.5-51.1); MCH 25.5 PG (27-31); MCHC 32.7 g/dL (33-37); MCV 77.9 FL (81-99); MONO# 0.14 X1000 (0.11-0.59); MONO% 0.6 % (1.7-9.3); MPV 10.1 FL (7.4-10.4); NEUT# 16.54 X1000 (1.4-6.5); NEUT% 67.7 % (42.2-75.2); PLT 121 X1000 (130-400); RBC 3.57 XMIL (4.2-5.4); RDW 14.7 % (11.5-14.5); WBC 24.44 X1000 (4.8-10.8)
--- NOTE | 2019-09-29 06:01 | CONSULTATION ---
DATE OF CONSULTATION: 09/28/2019 REQUESTING PROVIDER: Salo Drummond MD REASON FOR CONSULTATION: Respiratory failure. HISTORY OF PRESENT ILLNESS: This is a 74-year-old female with a medical history of cerebrovascular accidents, diabetes mellitus type 2, diabetic nephropathy, coronary artery disease, hiatal hernia and frequent and recurrent urinary tract infections. She presented to the [facility] last night via EMS with acute altered mental status, nausea, vomiting, and diarrhea for several days. Initial workup revealed septic shock secondary to urinary tract infection. Due to lack of speciality care, the patient was transferred to the ICU in our facility this morning. The nurse reported that patient has hypoglycemia this morning. She became shaky and her heart rate progressively elevated eventually up to 150s with respiratory rate to high 30s. The patient apparently became more lethargic. She was eventually electively intubated by Dr. Drummond at 1357. Patient currently still awake although she is on Ativan drip. She denies any pain. Urine by the bedside in the drainage bag is cloudy and concentrated. The patient's daughter at the bedside. She reports patient has nausea and vomiting, about 7 episodes, and intermittent diarrhea since last Wednesday. She reports no cough or wheezing noted. PAST MEDICAL HISTORY: 1. Cerebrovascular accidents x2 in 2008 and 2010. 2. Diabetes mellitus type 2, insulin dependent. 3. Diabetic neuropathy. 4. Coronary artery disease status post PCI. 5. Hiatal hernia. 6. Recurrent urinary tract infections. PAST SURGICAL HISTORY: 1. Hysterectomy. 2. Elbow surgery. 3. Cholecystectomy. 4. Hernia repair. SOCIAL HISTORY: The patient lives at home with her daughter. She has no history of alcohol, tobacco, or illicit drug use. ALLERGIES: Amoxicillin, Keflex, codeine, Pyridium, sulfa and Tigan. REVIEW OF SYSTEMS: Unable to be obtained. PHYSICAL EXAMINATION: Vital Signs: Temperature 99.2, blood pressure 96/47, pulse 141, respiratory rate 31, oxygen saturation 94% currently on AC mechanical ventilator with FiO2 60%, tidal volume 500, PEEP 5, and spontaneous rate 15. General: Intubated with Ativan drip but patient is still awake. She opened her eyes at times and able to follow simple commands. The patient's daughter is at the bedside. HEENT: Atraumatic, normocephalic. Trachea midline. ET tube in place. Mucosa pink and slightly dry. Respiratory: Tachypnea. Symmetrical excursion. Mechanical ventilated. Clear to auscultation bilaterally. Cardiovascular: Regular rate and rhythm. Gastrointestinal: Soft, nontender, nondistended. Bowel sounds present in all 4 quadrants. Extremities: No pedal edema. No cyanosis. No clubbing. Dorsalis pedis diminished bilaterally. Neurologic: Partially sedated, still able to squeeze my hands by following my commands. DATA: White blood cell 26.98, hemoglobin 10.8, hematocrit 32.9, platelet 239,000. Sodium 135, potassium 4.4, chloride 103, carbon dioxide 14, BUN 37, creatinine 2.7, glucose 157. Hemoglobin A1c 11.4. Troponin T 0.515. Plasma lactate 5.8. ABG with pH 7.47, pCO2 19, PO2 73, HC03 18.6, base excess -8.1, hemoglobin 95.3, and lactate 4.60. IMAGING DATA: Chest x-ray after intubation revealed development of infiltrates or atelectasis in the left lung base. ASSESSMENT: This is a 74-year-old female with a medical history of cerebrovascular accidents, diabetes mellitus type 2 insulin dependent, diabetic neuropathy, coronary artery disease, hiatal hernia and recurrent urinary tract infections. She has been admitted to the ICU with septic shock secondary to urinary tract infection, elevated troponin, transaminitis, high anion gap metabolic acidosis, severe lactate acidosis and acute kidney injury. 1. Acute hypoxic respiratory failure. 2. Septic shock. 3. Acute kidney injury and acute liver injury and elevated troponin T. 4. Left lower lobe infiltrates or atelectasis. 5. DO NOT RESUSCITATE level 2. PLAN: 1. Continue AC mechanical ventilator. 2. Continue broad spectrum antibiotics including Levaquin, meropenem and vancomycin. Continue Solu-Cortef and IV fluid resuscitation. Continue pressor with titration. 3. Follow up with ABG, CBC, BMP, urine culture, sputum culture and blood culture and chest x-ray. 4. Further recommendations pending hospital course. Thank you for the courtesy of this consult. Evaluation time >30 Dictated by ARACELI Francis for Silvino Cole MD cc: ARACELI Francis MD [facility]
[2019-09-29 06:18] LABS: ALBUMIN 2.5 g/dL (3.5-5.0); CALCIUM 7.5 mg/dL (8.8-10.2); CREATININE 3.1 mg/dL (0.5-0.9); PHOSPHORUS 3.6 mg/dL (2.7-4.5); POTASSIUM 4.5 mmol/L (3.5-5.1)
[2019-09-29 06:19] LABS: CHOLESTEROL 74 mg/dL (0-200); HDL 30 mg/dL (45-65); LDL 29 mg/dL; TRIGLYCERIDES 74 mg/dL (35-135); VLDL 15 mg/dL
[2019-09-29 06:22] LABS: ALB/GLOB RATIO 0.7; ALBUMIN 2.3 g/dL (3.5-5.0); CALCIUM 7.4 mg/dL (8.8-10.2); CREATININE 3.3 mg/dL (0.5-0.9); POTASSIUM 4.5 mmol/L (3.5-5.1); TOTAL BILIRUBIN 1.19 mg/dL (0.20-1.00); TOTAL PROTEIN 5.5 g/dL (6.3-8.3)
[2019-09-29] MEDS: HUMALOG SUBQ SCH ×4 (06:43→20:04)
[2019-09-29 07:28] LABS: CK INDEX 3.9 (0.0-2.5); CK-MB 38.76 ng/mL (0.0-5.0)
--- NOTE | 2019-09-29 07:35 | EKG Report ---
Test Performed on : 09/29/2019 07:03:52 AM Test Reason : NON ST MYOCARDIAL INFARCTION Blood Pressure : / mmHG Vent. Rate : 106 BPM Atrial Rate : 106 BPM P-R Int : 134 ms QRS Dur : 078 ms QT Int : 354 ms P-R-T Axes : 057 076 078 degrees QTc Int : 470 ms Sinus tachycardia. Nonspecific ST and T wave abnormality Abnormal ECG When compared with ECG of 29-SEP-2019 07:02, (Unconfirmed) Sinus rhythm. has replaced Ectopic atrial rhythm. QT has lengthened Confirmed by Pradeep CRAVEN, Davian ([id number]) on 09/29/2019 10:40:44 AM
--- NOTE | 2019-09-29 07:36 | Diag Imaging Result Doc PS360 ---
EXAM: CHEST-PORTABLE 09/29/2019 HISTORY: ventilator TECHNIQUE: AP portable at 0454 COMMENT: There is an endotracheal tube passing below the diaphragm. There is an endotracheal tube with its tip slightly below the thoracic inlet. There is alveolar opacity in the left lower lobe. This was also present on 09/28/2019. It is definitely worse than on the previous study of that date at 0214. IMPRESSION: Left lower lobe pneumonia. Electronically signed by Stefan Carrasco 09/29/2019 7:33 AM
--- NOTE | 2019-09-29 08:35 | CARDIOLOGY PROGRESS NOTE ---
DATE: 09/29/2019 CHIEF COMPLAINT: Shortness of breath, malaise, nausea, vomiting. SUBJECTIVE: Mrs. Louise went into respiratory failure yesterday and had to be intubated. Right now, she is intubated and overnight she has been maintained on Kai-Synephrine and IV fluids. This morning, her vital signs appear to be somewhat better and the Kai-Synephrine has been decreased. The patient is completely sedated and unresponsive. OBJECTIVE: Vital signs: Blood pressure is 107/67, pulse 105, respirations 26, temperature is 100. General: The patient is sedated, unresponsive. HEENT: Unremarkable. Chest: Diminished breath sounds bilaterally. Heart: Sounds are regular and rhythmic. I do not hear a gallop or murmur. Abdomen: Soft. Bowel sounds diminished. Extremities: Are not cold. Pulses are somewhat diminished. Neurologic exam: As I said, she is unresponsive. BLOOD WORK: White cell count is 24,440, hemoglobin 9.1 g. Blood gases: The pH is 7.33, pCO2 18, pO2 150. Sodium 135, potassium 4.5, BUN 44, creatinine 3.1. CPK actually came down to 1004 units. CK-MB fraction went up to 38.76. Troponin has crept up to 1.630. Her 12-lead EKG this morning shows sinus tachycardia without any significant ischemic ST-T changes. Chest x-ray today shows that the right lung is clear. The left lung shows possible pneumonia at the base of left lower lobe. IMPRESSION: 1. Patient who presented septic with positive blood culture, gram-negative rods, and possible pneumonia left lower lobe. 2. [id number] myocardial infarction. 3. Coronary heart disease, previous stents to left anterior descending, and disease in the 3 vessels noted on previous heart catheterization in 2005. 4. History of 2 strokes in the past. 5. Acute renal failure. RECOMMENDATION: At this time, we will continue supportive care. We have put her on low-dose Lovenox for deep venous thrombosis prophylaxis. Her myocardial infarction appears to be a supply- demand mismatch. It is a type 2 myocardial infarction. This is not ischemic event ongoing. This is sepsis with secondary myocardial ischemia. At this time, we will continue supportive care. The patient does not need to go to the sleep lab technician or have any acute intervention. We will continue to follow her. At this point in time, the most important thing is to optimize her electrolytes and keep her on IV fluids and broad-spectrum antibiotics under the direction of Pulmonary, Infectious Disease, and Nephrology. We will follow along. cc: Steven Gipson MD
[2019-09-29] MEDS: SOLU-CORTEF IV SCH ×2 (08:37→16:09)
[2019-09-29] MEDS: LR 1,000 ML IV SCH (08:37)
[2019-09-29] MEDS: MERREM 1 GM in NS 50 ML IV SCH ×2 (08:37→19:52)
[2019-09-29] MEDS: ASPIRIN PO SCH (08:37)
[2019-09-29 10:31] LABS: ALLEN TEST YES; BE -13.1 mmoll (-3.0-3.0); BLOOD TYPE ARTERIAL; HCO3-(ACT) 14.7 mmoll (20.0-26.0); METHB 1.3 % (0.0-1.5); MODALITY VENTILATOR; O2HB 96.2 % (95.0-99.0); PO2(98.6) 97 mmHg (60-100); SAMPLE BLOOD; SAO2 98.9 % (95.0-100.0); SRATE 15 BPM; THB 9.5 g/dL (11.5-17.4); TVOL 500 mL; pH(98.6) 7.38 (7.35-7.45)
[2019-09-29] MEDS ORDERED: MERREM 1 GM in NS 50 ML IV SCH (10:31)
[2019-09-29 10:32] LABS: PCO2(98.6) 17 mmHg (35-45)
[2019-09-29] MEDS: SODIUM BICARBONATE 8.4% IV PUSH SCH ×3 (11:00→19:52)
[2019-09-29] MEDS: ATIVAN 20 MG in NS 190 ML IV SCH ×2 (11:45→17:36)
--- NOTE | 2019-09-29 17:28 | PROGRESS NOTE ---
DATE: 09/29/2019 SUBJECTIVE: This morning Ms. Louise remains intubated and sedated on Ativan. She looks a little bit more stable today than yesterday. She is still on phenylephrine drip. Blood pressures have been fairly stable. IV fluids have been discontinued by the nephrology team. OBJECTIVE: Vital Signs: Blood pressure is 107/65, pulse of 105, respirations 28, temperature is 100.6 degrees. General: Ms. Louise is a 74-year-old elderly female. She is in bed. She is still intubated. She seems to be synchronizing well with the ventilator. Mucosa is pink and moist. Anicteric. Acyanotic. Neck: Supple. Chest: Air entry is bilaterally reduced. Some transmitted sounds from the ventilator. Cardiovascular: Regular rate and rhythm. No murmurs. Abdomen: Soft. Bowel sounds present. Some laparoscopic scars under the umbilicus. Extremities: No pedal edema. Central Nervous System: The patient is currently sedated on Ativan and intubated. Her pupils are, however, equal and reactive. Does have corneal reflex, and she does withdraw to pain. LABORATORY DATA: WBC is 24.44, hemoglobin is 9.1, platelet count of 121,000. Chemistry is also reviewed. Sodium is 135, potassium 4.5, chloride is 102, bicarbonate is 10, gap of 23 with a BUN of 44, creatinine is 3.1, glucose is 131. The patient's sputum culture is gram-negative kim, blood too showing gram-negative kim. Urine is showing gram-negative kim. A chest x-ray which was done this morning shows a left lower lobe pneumonia. ASSESSMENT AND PLAN: 1. Septic shock complicated with acute encephalopathy, acute kidney injury, ischemic liver and lactic acidosis. 2. Gram-negative kim bacteremia, most likely from the urinary tract. 3. Left lower lobe pneumonia. The patient is currently on antimicrobial therapy. 4. Acute hypoxemic respiratory failure. Patient is on mechanical ventilator. Pulmonary Medicine is on board. 5. Severe lactic acidosis due to septic shock. 6. Transaminitis secondary to ischemic liver injury. 7. Elevated troponin due to demand mismatch from septic shock. However, an echocardiogram seems to suggest apical and anteroseptal hypokinesis, which will be concerning for a coronary artery disease. Cardiology is on board. 8. Acute kidney injury. Creatinine continues to trend up. It was about 3.3 early this morning, repeat is 3.1. She is, however, making urine. We are going to continue to monitor this. Nephrology is on board. We presume this is acute tubular necrosis from prolonged hypotension induced by septic shock. CURRENT MEDICATIONS: The patient's current medications have also been reviewed. Medication list includes: 1. Morphine p.r.n. 2. Phenylephrine drip. 3. Phenergan p.r.n. 4. Bicarbonate pushes. 5. Aspirin 81 mg p.o. daily. 6. Hydrocodone 50 mg IV every 8 hours. 7. Lovenox 30 subcutaneous. 8. Meropenem 1 gram every 12 hours. 9. Vancomycin has been discontinued. There was no family member at the bedside at the time of this encounter. I will reevaluate Ms. Louise later on today and update the family members whenever they come back. CRITICAL TIME SPENT: 45 minutes. cc: Salo Drummond MD
--- NOTE | 2019-09-29 20:35 | NEPHROLOGY PROGRESS NOTE ---
DATE: 09/29/2019 SUBJECTIVE: She is sedated on the ventilator. OBJECTIVE: Vital Signs: Blood pressure 107/65, heart rate 105, respirations 28, temperature 100.6 degrees. General: Again unresponsive. Skin is warm and dry. Pupils are equal. Oropharynx is dry. Neck: Neck veins are distended. Heart: Regular and tachycardic. Lungs: Coarse with scattered crackles. Abdomen: Soft, nontender. Decreased bowel sounds. No organomegaly. Extremities: 2+ edema. No clubbing or cyanosis. IMPRESSION: 1. Acute kidney injury. Creatinine stable at 3 since admission 36 hours ago. She is in marked positive fluid balance of over 5 L. Only less than 500 mL of urine output in the last 24 hours. Technically oliguric. Urine electrolytes finds urine sodium of 47. FEMA is not low. These data taken together support a diagnosis of ischemic acute tubular necrosis likely associated with her hypotension and cardiovascular instability. She does not meet criteria for renal replacement therapy today though she does have significant metabolic acidosis associated with lactate. I have reviewed her care. She is currently receiving lactated Ringer's at 125 per hour. I will discontinue this as she appears volume expanded currently. Antibiotic dosing may need to be adjusted within the next 24 hours as her GFR appears to be falling. Specifically her Merrem dose and her Levaquin dose may need to be adjusted. She is at high risk for requiring renal replacement therapy. cc: London Haines MD
--- NOTE | 2019-09-29 20:42 | INFECTIOUS DISEASE CONSULT REP ---
DATE: 09/29/2019 CONCLUSION: The patient has a gram-negative kim urinary tract infection with an associated bacteremia. The patient has also a left lower lobe pneumonia. This could be hematogenous in nature or could represent an aspiration pneumonia. RECOMMENDATIONS: I agree with treating the patient with meropenem pending final culture results. The medication reconciliation technician Ms. Andrew today told me that the patient looks like she is growing out of her blood and urine E coli but the susceptibilities will be back tomorrow. The patient's lab studies show a CBC with a white count of 24,440, hemoglobin 9.1, and platelet count 121,000. Blood gases show a pH of 7.33, a PO2 of 150, pCO2 of 18. Creatinine is 3.1. GFR is 15. CK is 1004. AST is 180. Urinalysis showed white cells, bacteria and red blood cells. Blood and urine are growing out a gram-negative kim which as I mentioned above appears to be E coli. Chest x-ray shows left lower lobe pneumonia. Renal ultrasound shows nonobstructing intrarenal stone. It should be noted that the patient is intubated and no family members present. Therefore, I am unable to obtain a history from the patient. The information I have is from the computer. PAST MEDICAL HISTORY: Positive for stroke, diabetes mellitus, diabetic neuropathy, coronary artery disease and hiatal hernia. PAST SURGICAL HISTORY: Positive for hysterectomy, elbow surgery, cholecystectomy and hiatal hernia surgery. FAMILY HISTORY: Is positive for diabetes and coronary artery disease. SOCIAL HISTORY: The patient lives with her daughter. The patient does not smoke cigarettes or drink alcoholic beverages. ALLERGIES: Patient is allergic to amoxicillin, cefazolin, codeine, Zofran, sulfa and Tigan. It should be noted the patient is on meropenem and tolerating it well. PHYSICAL EXAMINATION: Vital Signs: Temperature is 101 degrees, pulse is 105, respirations 28, blood pressure 107/65. The patient is 5 feet 4 inches tall, weighs 134 pounds. General: This is an ill-appearing elderly female. She is intubated and sedated. Head/eyes/ears/nose/throat: She has an orotracheal and nasogastric tube in place. No drainage noted from the nose or ears. Neck: No stiffness to passive movement. Lungs: Clear to auscultation. Cardiovascular: Heart rate is regular. Abdomen: Soft and nontender. Neurologic: The patient is sedated. She did not respond to verbal stimuli. She does not have a tremor. Integument: No rash noted. Thank you for the consult. cc: Hector Shin MD
[2019-09-29] MEDS: LOVENOX SUBQ SCH (21:12)
--- NOTE | 2019-09-29 23:13 | PULMONOLOGY PROGRESS NOTE ---
DATE: 09/29/2019 SUBJECTIVE: The patient is sedated on mechanical ventilation. She responds to painful stimuli. OBJECTIVE: Vital Signs: The patient remains on Kai-Synephrine. BP 115/76, heart rate 105, respiratory rate 27, oxygen saturation 98%. HEENT: Pupils are equal and reactive. Oropharynx appears clear but dry. Neck: Supple. Chest: Reveals decreased breath sounds right base with coarse breath sounds bilaterally. Cardiac: S1, S2. Abdomen: Scaphoid and soft with diminished bowel sounds. Extremities: Reveal trace edema. LABORATORIES: Sodium 135, potassium 4.5, chloride 102, bicarbonate 10, BUN 44, creatinine 3.1, glucose 130. White blood count 24,000, hemoglobin 9.1, platelet count 121,000. Arterial blood gas reveals pH 7.38, pCO2 of 17, PO2 of 97 with a lactate of 6.6. Microbiology reveals gram- negative rods in the blood, the urine and the sputum. IMPRESSION: A 74-year-old with: 1. Acute hypoxemic respiratory failure. 2. Septic shock. 3. Left lower lobe pneumonia. 4. Bacteremia. 5. Urinary tract infection. 6. Acute renal failure. PLAN: 1. Continue full ventilatory support. 2. Continue current vasopressors. 3. Agree with stress dose steroids. 4. Continue broad-spectrum antibiotics per Dr. Hector Shin pending results of microbiology studies. 5. Adjust IV fluids. 6. Prognosis is guarded. Time spent in critical care management: 35 minutes cc: Joshua William MD [facility]
[2019-09-30] MEDS: ATIVAN 20 MG in NS 190 ML IV SCH ×2 (00:26→06:33)
[2019-09-30] MEDS: SOLU-CORTEF IV SCH ×3 (01:03→16:35)
[2019-09-30] MEDS ORDERED: VANCOMYCIN 1 GM/NS 1 GM/250 ML IVPB IV SCH (02:00)
[2019-09-30] MEDS ORDERED: CORDARONE 150 MG/D5W 150 MG/100 ML IV.SOLN IV ONE (03:00)
[2019-09-30] MEDS ORDERED: CORDARONE IV ONE (03:02)
[2019-09-30] MEDS ORDERED: CORDARONE 360 MG/D5W 360 MG/200 ML IV.SOLN IV ONE (03:03)
[2019-09-30 04:57] LABS: ALBUMIN 2.1 g/dL (3.5-5.0); CALCIUM 7.1 mg/dL (8.8-10.2); CREATININE 2.6 mg/dL (0.5-0.9); POTASSIUM 3.4 mmol/L (3.5-5.1)
[2019-09-30 05:01] LABS: ALLEN TEST YES; BE -8.5 mmoll (-3.0-3.0); BLOOD TYPE ARTERIAL; HCO3-(ACT) 18.3 mmoll (20.0-26.0); METHB 1.1 % (0.0-1.5); O2(CT) 7.9 mL/dL (15.0-23.0); O2HB 96.3 % (95.0-99.0); PCO2(98.6) 22 mmHg (35-45); PO2(98.6) 86 mmHg (60-100); SAMPLE BLOOD; SAO2 98.4 % (95.0-100.0); SRATE 15 BPM; THB 5.7 g/dL (11.5-17.4); TVOL 500 mL; pH(98.6) 7.44 (7.35-7.45)
[2019-09-30 05:02] LABS: MODALITY VENTILATOR
[2019-09-30 05:03] LABS: BASO# 0.02 X1000 (0.0-0.2); BASO% 0.1 % (0.0-0.8); EOS# 0.04 X1000 (0.0-0.7); EOS% 0.2 % (0.0-10.0); HEMATOCRIT 27.3 % (37.0-47.0); HEMOGLOBIN 9.3 g/dL (12.0-16.0); IMM GRAN# 0.38 X1000 (0.0-0.04); IMM GRAN% 1.5 % (0.0-0.5); LYMPH# 1.58 X1000 (1.2-3.4); LYMPH% 6.3 % (20.5-51.1); MCH 25.9 PG (27-31); MCHC 34.1 g/dL (33-37); MONO# 0.14 X1000 (0.11-0.59); MONO% 0.6 % (1.7-9.3); NEUT# 22.89 X1000 (1.4-6.5); NEUT% 91.3 % (42.2-75.2); PLT 61 X1000 (130-400); RBC 3.59 XMIL (4.2-5.4); RDW 14.7 % (11.5-14.5); WBC 25.05 X1000 (4.8-10.8)
--- NOTE | 2019-09-30 06:03 | EKG Report ---
Test Performed on : 09/30/2019 02:36:10 AM Test Reason : HR 150'S Blood Pressure : / mmHG Vent. Rate : 149 BPM Atrial Rate : 147 BPM P-R Int : 000 ms QRS Dur : 078 ms QT Int : 256 ms P-R-T Axes : 000 057 264 degrees QTc Int : 403 ms Atrial fibrillation. with rapid ventricular response. Nonspecific ST and T wave abnormality Abnormal ECG When compared with ECG of 29-SEP-2019 07:03, Atrial fibrillation. has replaced Sinus rhythm. Confirmed by Pradeep CRAVEN, Davian ([id number]) on 10/02/2019 8:15:00 AM
[2019-09-30] MEDS: NEO-SYNEPHRINE 50 MG in NS 250 ML IV SCH ×2 (06:33→20:33)
--- NOTE | 2019-09-30 07:01 | Diag Imaging Result Doc PS360 ---
EXAM: CHEST-PORTABLE 09/30/2019 HISTORY: ventilator TECHNIQUE: AP portable upright at 0452 COMMENT: There is an endotracheal tube with its tip slightly below the thoracic inlet and an NG tube which passes below the diaphragm. There are alveolar opacities in the left lower lobe. This was also the case on 09/29/2019. IMPRESSION: Left lower lobe pneumonia. The possibility of left pleural effusion cannot be excluded. Electronically signed by Stefan Carrasco 09/30/2019 6:59 AM
[2019-09-30] MEDS: HUMALOG SUBQ SCH ×4 (07:04→20:31)
[2019-09-30] MEDS: ASPIRIN PO SCH (08:28)
[2019-09-30] MEDS: MERREM 1 GM in NS 50 ML IV SCH ×2 (08:29→20:11)
[2019-09-30] MEDS ORDERED: CORDARONE 540 MG in D5W 289.2 ML IV ONE (09:03)
[2019-09-30] MEDS: PROTONIX IV SCH (14:54)
[2019-09-30] MEDS: SODIUM CHLORIDE 0.9% INJ SCH (14:54)
[2019-09-30] MEDS ORDERED: ATIVAN IV PRN (15:32)
[2019-09-30] MEDS ORDERED: MORPHINE IV PRN (15:42)
[2019-09-30] MEDS: POTASSIUM CHLORIDE 20 MEQ/SWI 20 MEQ/100 ML IVPB IV SCH ×2 (16:13→18:10)
[2019-09-30] MEDS: LOVENOX SUBQ SCH (21:05)
--- NOTE | 2019-09-30 21:51 | PULMONOLOGY PROGRESS NOTE ---
DATE: 09/30/2019 SUBJECTIVE: The patient remains sedated. OBJECTIVE: Vital Signs: The patient remains on Kai-Synephrine. Maximum temperature in the last 24 hours is 100.6 degrees, blood pressure 99/61, heart rate 76, respiratory rate 20, oxygen saturation 99%. HEENT: Pupils are equal. Oropharynx appears clear but endotracheal tube limits observation. Cardiac: Normal S1, S2, no murmurs, gallops, or rubs. Chest: Reveals coarse rhonchi bilaterally without wheezing or rhonchi. Decreased breath sounds left base. Abdomen: Soft with no bowel sounds present. Extremities: Cool to the touch. LABORATORIES: Chest x-ray reveals persistent left basilar infiltrate. Sputum reveals E coli, 2 blood cultures are positive for E coli and urine culture is positive for E coli. IMPRESSION: A 74-year-old with 1. Acute hypoxemic respiratory failure. 2. Septic shock. 3. Left lower lobe pneumonia. 4. Urinary tract infection. 5. Gram-negative bacteremia. 6. Acute renal failure with decreasing creatinine. RECOMMENDATIONS: 1. Continue full ventilatory support. Will wean as tolerated, but this will likely be delayed as long as she is in septic shock and on vasopressors. 2. Continue broad-spectrum antibiotics per Infectious Disease. 3. Wean vasopressors as tolerated. 4. Continue IV fluids. 5. Prognosis is guarded. Time spent in critical care management: Greater than 30 minutes cc: Joshua William MD [facility]
[2019-10-01] MEDS: SOLU-CORTEF IV SCH ×3 (00:41→16:35)
--- NOTE | 2019-10-01 01:11 | PROGRESS NOTE ---
DATE: 09/30/2019 SUBJECTIVE: Today Ms. Louise continues to be intubated. No family member at bedside. Per the nursing staff, she is fairly stable. However, she went into atrial fibrillation RVR last night and she had to be started on amiodarone drip. This morning, her vitals remained stable. She is currently in sinus. OBJECTIVE: Vital signs: Blood pressure is 98/61, pulse of 73, respirations 23, temperature 97.6 degrees, the patient is saturating 99%. General: Ms. Louise is a 74-year-old female. She is in bed, currently intubated, sedated on Ativan. HEENT: Mucosa is pink and moist. Anicteric. Acyanotic. Neck: Supple. Chest: Air entry is bilaterally reduced. Transmitted sounds from the ventilator. A few crackles posteriorly. Cardiovascular: Regular rate and rhythm. No murmurs, no rubs, no gallops. Gastrointestinal: Abdomen is soft. Some laparoscopic scars under the umbilicus. Bowel sounds are present. Extremities: No pedal edema. ECONOMIC CONSULTANT: The patient is currently sedated on Ativan. Pupils are equal and they are reactive. She does withdraw to pain. INTAKE AND OUTPUT: The patient's urine output was 1065. Patient is currently positive balance for 6242. LABORATORY DATA: WBC is 25.05, hemoglobin is 9.3, platelet count of 61,000. Chemistry is also reviewed. Lactate is still elevated at 4.8. Sodium is 141, potassium is 3.4, chloride is 104, bicarb is 14 with a gap of 23, BUN is 53, and creatinine is down to 2.6. AST and ALT were not checked today. Microbiology: Shows sputum of E coli. Blood culture twice E coli. Urine culture is also E coli. ASSESSMENT: 1. Septic shock, complicated with acute infectious encephalopathy, acute kidney injury, ischemic liver, severe lactic acidosis and hypoxemic respiratory failure. The patient continues on critical care management. 2. Escherichia coli bacteremia from urinary tract infection. The patient is on meropenem. 3. Left lower lobe Escherichia coli pneumonia. 4. Acute hypoxemic respiratory failure. Patient continues to be on mechanical ventilator. 5. Severe lactic acidosis secondary to septic shock. 6. Transaminitis secondary to ischemic liver injury. 7. Elevated troponin due to demand mismatch from septic shock. Cardiology is on board. 8. Acute kidney injury presumably acute tubular necrosis. Nephrology is on board. 9. Atrial fibrillation with rapid ventricular response, most likely induced by the septic shock. The patient is currently on amiodarone and she has converted to sinus. 10. Uncontrolled diabetes mellitus with presenting A1c of 11.4%. So far, the patient's glucose level is fairly stable. We will continue using the sliding scale. Critical time: 45 minutes cc: Salo Drummond MD [facility]
[2019-10-01] MEDS: CORDARONE 540 MG in D5W 289.2 ML IV SCH ×2 (03:10→21:59)
[2019-10-01 04:46] LABS: ALLEN TEST YES; BE -5.5 mmoll (-3.0-3.0); BLOOD TYPE ARTERIAL; HCO3-(ACT) 20.6 mmoll (20.0-26.0); METHB 1.2 % (0.0-1.5); O2(CT) 14.8 mL/dL (15.0-23.0); O2HB 96.5 % (95.0-99.0); PO2(98.6) 112 mmHg (60-100); SAMPLE BLOOD; SAO2 98.7 % (95.0-100.0); SRATE 15 BPM; THB 10.8 g/dL (11.5-17.4); TVOL 500 mL; pH(98.6) 7.52 (7.35-7.45)
[2019-10-01 04:47] LABS: MODALITY VENTILATOR; PCO2(98.6) 19 mmHg (35-45)
[2019-10-01 04:48] LABS: ALB/GLOB RATIO 0.6; ALBUMIN 1.9 g/dL (3.5-5.0); CALCIUM 7.1 mg/dL (8.8-10.2); CREATININE 2.2 mg/dL (0.5-0.9); POTASSIUM 3.9 mmol/L (3.5-5.1); TOTAL BILIRUBIN 0.79 mg/dL (0.20-1.00)
[2019-10-01 04:50] LABS: BASO# 0.01 X1000 (0.0-0.2); BASO% 0.1 % (0.0-0.8); HEMATOCRIT 29.6 % (37.0-47.0); HEMOGLOBIN 10.1 g/dL (12.0-16.0); IMM GRAN# 0.22 X1000 (0.0-0.04); IMM GRAN% 1.2 % (0.0-0.5); LYMPH# 2.23 X1000 (1.2-3.4); LYMPH% 12.1 % (20.5-51.1); MCH 25.7 PG (27-31); MCHC 34.1 g/dL (33-37); MCV 75.3 FL (81-99); MONO# 0.55 X1000 (0.11-0.59); MPV 11.4 FL (7.4-10.4); NEUT% 83.6 % (42.2-75.2); PLT 40 X1000 (130-400); RBC 3.93 XMIL (4.2-5.4); RDW 14.8 % (11.5-14.5); WBC 18.41 X1000 (4.8-10.8)
[2019-10-01 04:51] LABS: INR 1.32; PROTIME 16.6 Seconds (11.0-16.0)
--- NOTE | 2019-10-01 07:02 | Diag Imaging Result Doc PS360 ---
EXAM: CHEST-PORTABLE 10/01/2019 HISTORY: ventilator TECHNIQUE: AP portable at 0452 COMMENT: There is an endotracheal tube with its tip at the thoracic inlet and an NG tube which passes below the diaphragm. There is a pleural effusion on the left. There is alveolar opacity present in the left lower lobe. Compared to the previous study of 09/30/2019 this has improved slightly. IMPRESSION: Minimal improvement in left lower lobe pneumonia. Left pleural effusion. Electronically signed by Stefan Carrasco 10/01/2019 6:59 AM
[2019-10-01 07:12] LABS: IRON SATURATION 86 %; TIBC 146 ug/dL; TOTAL IRON 125 ug/dL (49-151); UNBOUND IRON 21 ug/dL (112-346)
[2019-10-01] MEDS: HUMALOG SUBQ SCH ×4 (07:28→20:14)
--- NOTE | 2019-10-01 07:41 | NEPHROLOGY PROGRESS NOTE ---
DATE: 09/30/2019 SUBJECTIVE: She remains sedated on the ventilator. OBJECTIVE: Vital Signs: Blood pressure 97/63, heart rate 79, respirations 22, afebrile. Intake 2.5 L, output 1.4 L. General: No acute distress. Skin: Warm and dry. Neck: Neck veins are not distended. Heart: Regular. No gallops. Lungs: Equal. No crackles. Abdomen: Soft, nontender. Bowel sounds are present. Extremities: There is trace edema in the left leg. Otherwise, no edema. IMPRESSION: 1. Acute kidney injury, progressively improving. Creatinine 2.6 today. Serum bicarbonate is up to 14. 2. Mild hypokalemia. Will replace. cc: London Haines MD
[2019-10-01 07:51] LABS: FERRITIN 514 ng/mL (13-150)
[2019-10-01] MEDS: MERREM 1 GM in NS 50 ML IV SCH ×2 (08:04→20:14)
[2019-10-01] MEDS ORDERED: FOLIC ACID 1 MG in NS 50 ML IV ONE (08:11)
[2019-10-01] MEDS: ASPIRIN PO SCH (08:11)
--- NOTE | 2019-10-01 08:49 | EKG Report ---
Test Performed on : 10/01/2019 06:49:24 AM Test Reason : NON ST MYOCARDIAL INFARCTION Blood Pressure : / mmHG Vent. Rate : 092 BPM Atrial Rate : 092 BPM P-R Int : 122 ms QRS Dur : 078 ms QT Int : 372 ms P-R-T Axes : 020 061 -70 degrees QTc Int : 460 ms Normal sinus rhythm. Nonspecific T wave abnormality Abnormal ECG When compared with ECG of 30-SEP-2019 06:49, (Unconfirmed) No significant change was found Confirmed by Pradeep CRAVEN, Davian ([id number]) on 10/02/2019 8:18:14 AM
[2019-10-01] MEDS: ALBUMIN 25% IV SCH ×2 (10:11→17:42)
--- NOTE | 2019-10-01 10:54 | PROGRESS NOTE ---
DATE: 10/01/2019 SUBJECTIVE: This morning, Ms. Louise continues to be in the critical care unit. She is intubated. She is not on any sedation drip. I understand the Kai-Synephrine has been on standby since yesterday. She is still on the amiodarone drip. One of her sons was at the bedside at the time of the encounter. OBJECTIVE: Vital Signs: Blood pressure of 83/60 with a MAP of 69, pulse of 102, respirations are 25, temperature is 97.3 degrees. Patient has been afebrile for the last 24 hours. General Examination: Ms. Louise is a 74-year-old, elderly, female. She is in bed, currently intubated. HEENT: Mucosa is pink and moist. Anicteric. Acyanotic. Neck: Supple. Chest: Good air entry bilaterally. There are transmitted sounds from the ventilator. The patient is synchronizing well with the ventilator. Cardiovascular: Regular rate and rhythm with occasional extrasystolic beats. GI: Abdomen is soft. Bowel sounds are present. Some old laparoscopic scars on the anterior abdominal wall. Extremities: Trace pedal edema. COMMISSIONING AGENT: The patient is currently intubated. Will withdraw to pain in both upper and lower extremities. Pupils are equal and reactive. Good gag reflex. Is and Os: Urine output was a total of 1245. The patient is currently positive balance of 6000 during the hospital course. Current Laboratory Data: WBC is down to 18.41, hemoglobin is 10.1, platelet count of 40,000. INR is 1.3, fibrinogen is high. ABGs have all been reviewed. Chemistry is also reviewed. Creatinine is down to 2.2. BUN went up to 7.1. The patient is still slightly acidotic with a bicarb of 15. Folic acid is 8.2. Repeat blood cultures have been done today. Imaging Studies: A chest x-ray shows minimum improvement in the left lower lobe pneumonia. There is also left pleural effusion. CURRENT MEDICATIONS: Include: 1. Tylenol p.r.n. 2. Amiodarone drip. 3. Aspirin 81 mg p.o. daily. 4. Lovenox 30 subcutaneous daily. 5. Folic acid added today. 6. Hydrocortisone 50 mg IV q.8. 7. Merrem 1 g q.12. 8. Protonix. ASSESSMENT: 1. Septic shock complicated with global encephalopathy, acute kidney injury, ischemic liver disease, severe lactic acidosis, and hypoxemic respiratory failure. Patient continues to be under critical care management. She is being seen by multiple subspecialties including pulmonary medicine, cardiology, infectious disease, nephrology. 2. Escherichia coli bacteremia. The patient is currently on meropenem. Today is day 2 on antimicrobial therapy. We are going to repeat blood cultures today. 3. Acute hypoxemic respiratory failure. Patient continues to be on the ventilator. Pulmonary medicine is on board. 4. Left lower lobe Escherichia coli pneumonia. We will continue with the current antimicrobial coverage. 5. Severe lactic acidosis secondary to septic shock, improved. 6. Transaminitis secondary to ischemic liver injury. 7. Elevated troponins due to demand mismatch from septic shock. Cardiology is on board. 8. Acute kidney injury, presumably acute tubular necrosis. Creatinine is slightly down to 2.2 today. 9. Atrial fibrillation with rapid ventricular response during the hospital course, presumably caused by the septic shock. The patient is currently on amiodarone per protocol. 10. Uncontrolled diabetes mellitus with presenting A1c of 11.4. The patient is on sliding scale. 11. Folate deficiency. We will continue replacement. 12. Worsening thrombocytopenia, presumably due to septic shock. We are going to continue observing. The patient is not showing any signs of acute bleed. Fibrinogen is elevated so I do not think this is disseminated intravascular coagulation. We will check the platelet activating factor IV to rule out heparin-induced thrombocytopenia. PLAN: In general, I think Ms. Louise continues to be critically sick. She is tolerating the ventilator. We are going to repeat the blood cultures today. Replace her mineral and vitamin deficiencies, and await further recommendations from the other subspecialties involved with her care. cc: Salo Drummond MD Critical time spent : [facility]
[2019-10-01] MEDS: SODIUM CHLORIDE 0.9% INJ SCH (13:53)
[2019-10-01] MEDS: PROTONIX IV SCH (13:53)
--- NOTE | 2019-10-01 21:14 | INFECTIOUS DISEASE PROGRESS NO ---
DATE: 10/01/2019 PRESENT ILLNESS: The patient has an E coli pneumonia, bacteremia, and urinary tract infection. Since the patient has 3 very serious infections, she may have an immunoglobulin deficiency. MEDICATIONS: The patient is on meropenem. This is day 2 of treatment with that antibiotic. PHYSICAL EXAMINATION: Vital Signs: Temperature is 98.1 degrees, pulse 91, respirations 20, blood pressure 112/64. General: A this is a ill-appearing elderly female. She is intubated and sedated. Head/eyes/ears/nose/throat: She has an orotracheal and an orogastric tube in place. Neck: No stiffness. Lungs: Clear to auscultation. Cardiovascular: Heart rate is irregular. Abdomen: Soft and nontender. Neurologic: The patient is sedated. She did not respond to verbal stimuli. She does not have a tremor. Integument: No rash noted. LAB/X-RAY DATA: Chest x-ray shows improvement in the left lower lobe infiltrate. The patient's CBC shows a white count is down to 18,410, hemoglobin is 10.1, platelet count is 40,000. Repeat blood cultures are pending. ASSESSMENT AND PLAN: The patient has Escherichia coli pneumonia, urinary tract infection and bacteremia. My plan is to continue meropenem because the patient has very serious allergies to amoxicillin and cephalexin. Since the patient has had so many infections, she may have an immunoglobulin deficiency and I have ordered immunoglobulin levels. COMORBIDITIES: The patient is elderly. She is a diabetic and she also has a hiatal hernia and coronary artery disease. cc: Hector Shin MD
--- NOTE | 2019-10-01 21:48 | PULMONOLOGY PROGRESS NOTE ---
DATE: 10/01/2019 SUBJECTIVE: The patient has been off Ativan drip for approximately 24 hours. She remains poorly responsive, but does respond to painful stimuli. OBJECTIVE: Vital Signs: The patient has been afebrile for the last 24 hours. Blood pressure 101/58, heart rate 90, respiratory rate 20, oxygen saturation 99%. Her Kai- Synephrine drip is being titrated off. HEENT: Pupils are equal. Oropharynx appears clear, but evaluation is limited. Neck: Supple. Chest: Reveals coarse rhonchi bilaterally. Cardiac: S1, S2. Abdomen: Soft with decreased bowel sounds. Extremities: Reveal 1+ peripheral edema. LABORATORIES: Arterial blood gas reveals a pH of 7.52, pCO2 of 19, PO2 of 112 with a lactate below 2.5. Sodium 139, potassium 3.9, chloride 105, bicarbonate 15, anion gap 19, BUN 71, creatinine 2.2, glucose 286, albumin 1.9. White blood count 18.4, hemoglobin 10.1, platelet count 40,000. Chest x-ray reveals mild decrease in left lower lobe infiltrate. IMPRESSION: A 74-year-old with: 1. Acute hypoxemic respiratory failure. 2. Septic shock due to gram-negative bacteremia. 3. Left lower lobe pneumonia with improvement. 4. Urinary tract infection. 5. Acute renal failure with marginal improvement. 6. Thrombocytopenia, suspect related to sepsis. PLAN: 1. Continue full ventilatory support. She is currently overbreathing mechanical ventilation making her more alkalotic, but her respiratory rate will be decreased. 2. Continue broad-spectrum antibiotics. 3. Transfuse albumin to increase oncotic pressure to help additional weaning of vasopressors. 4. Daily ventilator trial. 5. Hold Ativan drip given ongoing sedation. TIME: Spent in critical care management, 30+ minutes. cc: Joshua William MD [facility]
[2019-10-02] MEDS: SOLU-CORTEF IV SCH ×3 (00:29→16:56)
[2019-10-02] MEDS: TYLENOL PO PRN (03:21)
[2019-10-02 04:14] LABS: ALLEN TEST YES; BE -1.5 mmoll (-3.0-3.0); BLOOD TYPE ARTERIAL; HCO3-(ACT) 23.8 mmoll (20.0-26.0); O2HB 97.1 % (95.0-99.0); PCO2(98.6) 25 mmHg (35-45); PO2(98.6) 119 mmHg (60-100); SAMPLE BLOOD; SAO2 99.3 % (95.0-100.0); SRATE 10 BPM; THB 10.1 g/dL (11.5-17.4); TVOL 500 mL; pH(98.6) 7.52 (7.35-7.45)
[2019-10-02 04:16] LABS: MODALITY VENTILATOR
[2019-10-02 04:59] LABS: BASO# 0.01 X1000 (0.0-0.2); BASO% 0.1 % (0.0-0.8); HEMATOCRIT 26.1 % (37.0-47.0); HEMOGLOBIN 8.5 g/dL (12.0-16.0); IMM GRAN# 0.08 X1000 (0.0-0.04); IMM GRAN% 0.7 % (0.0-0.5); LYMPH# 1.76 X1000 (1.2-3.4); LYMPH% 14.4 % (20.5-51.1); MCHC 32.6 g/dL (33-37); MCV 76.8 FL (81-99); MONO# 0.48 X1000 (0.11-0.59); MONO% 3.9 % (1.7-9.3); NEUT# 9.93 X1000 (1.4-6.5); NEUT% 80.9 % (42.2-75.2); RDW 14.9 % (11.5-14.5); WBC 12.26 X1000 (4.8-10.8)
[2019-10-02 05:00] LABS: PLT 26 X1000 (130-400)
[2019-10-02 05:33] LABS: ALBUMIN 2.4 g/dL (3.5-5.0); CALCIUM 7.1 mg/dL (8.8-10.2); CREATININE 1.7 mg/dL (0.5-0.9); POTASSIUM 3.4 mmol/L (3.5-5.1); TOTAL BILIRUBIN 0.97 mg/dL (0.20-1.00); TOTAL PROTEIN 4.7 g/dL (6.3-8.3)
[2019-10-02] MEDS: HUMALOG SUBQ SCH ×5 (05:48→21:00)
[2019-10-02 06:07] LABS: LYMPHS 16 % (21-51); MONO 4 % (1-9); SEGS 80 % (42-75)
--- NOTE | 2019-10-02 07:26 | EKG Report ---
Test Performed on : 10/02/2019 06:56:09 AM Test Reason : elevated Trop Blood Pressure : / mmHG Vent. Rate : 088 BPM Atrial Rate : 088 BPM P-R Int : 142 ms QRS Dur : 078 ms QT Int : 376 ms P-R-T Axes : 046 058 059 degrees QTc Int : 454 ms Normal sinus rhythm. Nonspecific ST and T wave abnormality Abnormal ECG When compared with ECG of 01-OCT-2019 06:49, (Unconfirmed) No significant change was found Confirmed by Pradeep CRAVEN, Davian ([id number]) on 10/02/2019 8:26:32 AM
--- NOTE | 2019-10-02 07:51 | Diag Imaging Result Doc PS360 ---
EXAM: CHEST-PORTABLE INDICATION: Vent TECHNIQUE: One view COMPARISON: 10/01/2019 FINDINGS: Support tubes and lines are in stable positions. The small pleural effusion with adjacent atelectasis and infiltrate at the left lung base is essentially unchanged. No new consolidation is identified. Cardiac silhouette is stable. IMPRESSION: Grossly stable chest. Electronically signed by Brooks Weinstein 10/02/2019 7:49 AM
[2019-10-02] MEDS: MERREM 1 GM in NS 50 ML IV SCH ×2 (08:12→19:35)
[2019-10-02 08:36] LABS: RETIC% 0.36 % (0.8-2.1); RETIC-HE 21.9 PG (28.2-36.6)
[2019-10-02] MEDS: FOLIC ACID 1 MG in NS 50 ML IV SCH (08:56)
[2019-10-02] MEDS: ASPIRIN PO SCH (08:56)
[2019-10-02] MEDS: ARIXTRA SUBQ SCH (08:56)
[2019-10-02 09:00] LABS: INR 1.34; PROTIME 16.8 Seconds (11.0-16.0)
[2019-10-02] MEDS ORDERED: ROMAZICON IV ONE ×2 (12:40→14:27)
--- NOTE | 2019-10-02 13:16 | NEPHROLOGY PROGRESS NOTE ---
DATE: 10/02/2019 SUBJECTIVE: 1. Patient remains mechanically ventilated. 2. She is minimally responsive. OBJECTIVE: Vital Signs: Temperature 99 degrees, pulse 85, respiratory rate 16, blood pressure 104/56. Intake 758 mL; output 1.2 L via Segovia catheter. General: Acutely ill- appearing, elderly female, currently mechanically ventilated. HEENT: Normocephalic, atraumatic. Orally intubated. Neck: Supple. Trachea midline. Cardiovascular: Irregularly regular rhythm. Pulmonary: She has decreased breath sounds. Some rhonchi bilaterally. Remains mechanically ventilated. Abdomen: Soft. Hypoactive. : Segovia catheter. Extremities: 1+ lower extremity edema with 1+ to 2+ upper extremity dependent edema noted. Integumentary: Skin is pale, warm, and dry. Neurologic: Poorly responsive. She does not appear on continuous sedation. LAB DATA: WBC of 12.2, hemoglobin 8.5. Sodium 145, potassium 3.4, CO2 18, creatinine 1.7 (2.2). ASSESSMENT AND PLAN: 1. Acute kidney injury. Renal functions continue to improve over the weekend. Urine output is up to greater than a liter per day. Continue with current treatment plan. 2. Electrolytes, acid-base balance. Her serum CO2 is up to 18 today. 3. Anemia, stable. 4. Respiratory failure followed by primary Pulmonology. 5. Hypertension. Patient is no longer on pressor support. Dictated by ARACELI Brown for London Haines MD Face to face encounter, data reviewed, discussed with Callie Dupree on 10/02/19. I agree with the above assessment and plan of care. cc: London Haines MD [facility]
[2019-10-02 13:23] LABS: ALLEN TEST YES; BE 0.4 mmoll (-3.0-3.0); BLOOD TYPE ARTERIAL; HCO3-(ACT) 25.3 mmoll (20.0-26.0); METHB 0.7 % (0.0-1.5); O2(CT) 12.2 mL/dL (15.0-23.0); O2HB 97.4 % (95.0-99.0); PCO2(98.6) 27 mmHg (35-45); PO2(98.6) 105 mmHg (60-100); SAMPLE BLOOD; SAO2 99.3 % (95.0-100.0); THB 8.8 g/dL (11.5-17.4); pH(98.6) 7.53 (7.35-7.45)
[2019-10-02 13:24] LABS: MODALITY VENTILATOR
[2019-10-02] MEDS: PROTONIX IV SCH (13:59)
[2019-10-02] MEDS: SODIUM CHLORIDE 0.9% INJ SCH (13:59)
--- NOTE | 2019-10-02 14:44 | INFECTIOUS DISEASE PROGRESS NO ---
DATE: 10/02/2019 PRESENT ILLNESS: Ms. Louise is being treated for Escherichia coli pneumonia, urinary tract infection, and bacteremia. MEDICATIONS: She is on day 3 of meropenem 1 g IV every 12 hours. PHYSICAL EXAMINATION: Vital Signs: Temperature is 98.6 degrees, pulse rate 84, respiratory rate 20, blood pressure 112/59, O2 saturation is 99% on a 40% FiO2 on the mechanical ventilator in CPAP mode. HEENT: Normocephalic, with some mild abrasions noted to her lower lip. Conjunctiva are pale. Oral mucous membranes cannot be visualized at this time. Oral ET tube is in place as well as a gastric tube which is connected to low intermittent suction. Respiratory: Lung sounds are clear to auscultation in the upper lobes with some mild coarse sounds which were scattered bilaterally, diminished in the bases. Cardiovascular: Heart rate and rhythm are regular. Normal sinus rhythm on the monitor. Abdomen: Soft, flat, and nontender. Bowel sounds are hypoactive. Integumentary: Skin is warm and dry. There is some swelling to the upper extremities with some mild weeping noted to the right upper extremity. Neurologic: She is sedated, on the mechanical ventilator. LABORATORY AND X-RAY: Today, her white count is 12.26, hemoglobin 8.6, platelet count 26,000. PH is 7.52, pCO2 of 25, PO2 of 119 on a 40% FiO2 on the mechanical ventilator. Creatinine is 1.7. GFR is 29. Total bilirubin is 0.97, AST 31, ALT 120, alkaline phosphatase 89. Immunoglobulin show an IgA of 157, IgG of 1085, and IgM of 80. Her sputum, blood, and urine have all grown an Escherichia coli. There is a repeat set of blood cultures which were drawn yesterday and are pending. Chest x-ray done today is stable with small pleural effusions and adjacent atelectasis and infiltrate at the left lung base. ASSESSMENT AND PLAN: Ms. Louise is being treated for an Escherichia coli urinary tract infection, pneumonia, and bacteremia. She is responding well to meropenem. There is a continued decrease in her leukocytosis. She is receiving some steroids which will increase this somewhat. Her meropenem is renally dosed due to her acute kidney injury, which seems to be improving. We will continue the meropenem as ordered, awaiting another set of sterile blood cultures for baseline. These plans have been discussed with and recommended by Dr. Shin. COMORBIDITIES: For Ms. Louise include that she is elderly, with diabetes mellitus, coronary artery disease, and history of stroke. Dictated by ARACELI Lopez for Hector Shin MD cc: Hector Shin MD
--- NOTE | 2019-10-02 15:11 | PROGRESS NOTE ---
DATE: 10/02/2019 SUBJECTIVE: This morning, Ms. Louise continues to be intubated. She was actually going through a breathing trial at the time of the encounter. One of the sons was at the bedside. OBJECTIVE: Vital Signs: Blood pressure is 107/53, pulse of 83, respirations 19, temperature 98.6 degrees. General: Ms. Louise is a 74-year-old female. She is in bed. She is currently intubated, on no sedation. She is going through spontaneous breathing trial. HEENT: Mucosa is pink and moist. Anicteric. Acyanotic. Neck: Supple. Chest: Good air entry bilaterally. I did not hear any crackles. Cardiovascular: Regular rate and rhythm with occasional extrasystolic beats. GI: Abdomen is soft. Bowel sounds present. Some old laparoscopic scars on the anterior abdominal wall. Extremities: No pedal edema. 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 Pupils are equal, and they are reactive to light. The patient has very good corneal and gag reflex. She would withdraw from pain on stimulation. The patient's I's and O's show urine output was 1000. She is still currently positive balance of 5589. MEDICATIONS: Current medications have all been reviewed. She is still on meropenem 1 gram every 12 hours. Today is day 3. LABORATORY DATA: So far, a repeat blood culture is still pending. IMAGING STUDIES: This morning, small pleural effusions with adjacent atelectasis, infiltrate at the left lung base, essentially unchanged. No new findings. ASSESSMENT: 1. Septic shock complicated with global encephalopathy, acute kidney injury, ischemic liver disease, severe lactic acidosis, and hypoxemic respiratory failure. The patient continues to be under critical care management, and is being seen by multiple subspecialties. 2. Escherichia coli urinary tract infection, complicated with bacteremia and left lower lobe pneumonia. The patient is on meropenem. Today is day 3. Infectious Disease is on board. 3. Acute hypoxemic respiratory failure. The patient is on the ventilator. Pulmonary Medicine is on board. She is currently going through spontaneous breathing trial. It looks like she probably might be able to be extubated. 4. Severe lactic acidosis secondary to septic shock, resolved. 5. Acute kidney injury, presumably acute tubular necrosis. The patient's urine output seems to have picked up. Creatinine is trending down. It is 1.7 today. 6. Elevated troponins, most likely due to demand mismatch from septic shock. Cardiology is on board. 7. Transaminitis secondary to ischemic liver injury. 8. Atrial fibrillation with rapid ventricular response during the hospital course, presumably caused by the septic shock. The patient is currently on amiodarone per protocol. 9. Uncontrolled diabetes mellitus. Presenting A1c of 11.4. The patient is currently on sliding scale. 10. Thrombocytopenia. Mildly elevated INR. Fibrinogen is normal, but I think that probably the patient was in mild disseminated intravascular coagulation. We have consulted Hematology/Oncology to also evaluate her. In general, Ms. Louise continues to be critically sick. A repeat blood culture is still pending. She is day 4 in the hospital. Presented to the hospital because of altered mental status, urinary symptoms. Was found to be hypotensive. During the initial hospital stages, she was found to be remarkably altered and not breathing well, so she was intubated to protect the airway. She seems to be fairly stable, but still critically sick. We will follow up with her breathing trial today, and see if she can eventually be extubated. Will also follow up with the recommendations from the other subspecialties. Ms. Louise is being seen by Pulmonary Medicine, Nephrology, Infectious Disease, and we are extremely grateful for their valuable input in the care of this extremely complicated patient. cc: Salo Drummond MD
[2019-10-02] MEDS: CORDARONE 540 MG in D5W 289.2 ML IV SCH (16:16)
--- NOTE | 2019-10-02 18:45 | HEMO/ONC CONSULTATION ---
DATE: 10/02/2019 ADMITTING PHYSICIAN: Salo Drummond MD REQUESTING PHYSICIAN: Salo Drummond MD We appreciate this consult. CHIEF COMPLAINT: Worsening thrombocytopenia. HISTORY OF PRESENT ILLNESS: Ms. Beth Louise is a 74-year-old female with a medical history of CVA x2 in 2008 and 2010, diabetes mellitus, diabetic neuropathy, coronary artery disease, hiatal hernia, frequent urinary tract infections. The patient's family reports that the patient began having episodes of nausea, vomiting and diarrhea last week, the patient became progressively weaker, unable to hold down anything by mouth. She was brought to [facility] Emergency Department where her blood sugar was found to be greater than 500. Additionally, she was found to have a urinary tract infection and was thought to be sepsis with shock and hypotension. The patient also had a positive troponin and was transferred to [facility]. The patient has been on antibiotics and has had progressively worsening platelet count. Platelet count today has decreased to 26,000. The patient has no prior history of known thrombocytopenia. We are consulted for the same. PAST MEDICAL HISTORY: As in HPI. PAST SURGICAL HISTORY: 1. Hysterectomy. 2. Pelvis surgery. 3. Cholecystectomy. 4. Hiatal hernia repair. FAMILY HISTORY: Negative for hematologic or oncologic disease. SOCIAL HISTORY: The patient does not use tobacco, alcohol or illicit drugs. MEDICATIONS ON ADMISSION: Per EMR. ALLERGIES: Amoxicillin, Keflex, codeine, Pyridium, sulfa, and Tigan. REVIEW OF SYSTEMS: A 14 point review of systems was attempted and is unable to be obtained as the patient is unresponsive on the ventilator. PHYSICAL EXAMINATION: General: Ms. Louise is a 74-year-old female lying supine in bed on the ventilator with no sedation, unresponsive. Vital Signs: Temperature 99.1, blood pressure 100/53, heart rate 88, respirations 18, O2 saturation 99% on ventilator. HEENT: Normocephalic, atraumatic. Mucous membranes are pale and moist. Sclerae anicteric. Extraocular movements intact. Neck: Supple. Lungs: Clear to auscultation bilaterally. Chest expansion equal bilaterally. Cardiovascular: S1, S2 is heard. Abdomen: Soft nondistended, nontender. Bowel sounds positive all 4 quadrants. No rebound or guarding noted. NG tube in place draining bilious fluid. Extremities: Without clubbing, cyanosis, or edema. Dermatologic: No rashes, bruises or lesions. Neurologic: The patient withdraws to pain. She has no overt focal deficit. LABORATORY DATA: Hemoglobin 8.5, hematocrit 26.1, white blood cell count 12.26, platelets 26,000. Sodium 145, potassium 3.4, chloride 112, CO2 is 18, BUN 72, and creatinine is 1.7, glucose 257, calcium 7.1, bilirubin 0.97, alkaline phosphatase 136, AST 31, ALT is 120. Immunoglobulin SA within normal limits. Sputum culture reveals Escherichia coli. Blood culture pending. IMAGING STUDIES: Chest x-ray reveals left lung base small effusion with atelectasis and infiltrate ASSESSMENT/PLAN: 1. Worsening thrombocytopenia, questionable etiology. The patient has been on several antibiotics at this time. We will initiate a workup at this time. If workup is negative, would recommend changing antibiotic. We will continue to follow. 2. Escherichia coli pneumonia with bacteremia and urinary tract infection with septic shock. Infectious Disease is currently following. 3. Acute hypoxemic respiratory failure. Currently on ventilator. 4. Severe lactic acidosis, secondary to septic shock, improving. 5. Uncontrolled diabetes mellitus with diabetic ketoacidosis on admission, blood sugars improving. 6. We will follow along with you and make further recommendations pending outcomes . The above reflects the history, exam, assessment, and plan of Dr. Fay. Dictated by ARACELI Fregoso for Sg Fay MD cc: ARACELI Fregoso MD
[2019-10-03] MEDS: SOLU-CORTEF IV SCH ×3 (00:57→16:03)
[2019-10-03 04:31] LABS: ALLEN TEST YES; BE -1.3 mmoll (-3.0-3.0); BLOOD TYPE ARTERIAL; HCO3-(ACT) 23.9 mmoll (20.0-26.0); METHB 1.2 % (0.0-1.5); O2(CT) 13.7 mL/dL (15.0-23.0); O2HB 96.9 % (95.0-99.0); PCO2(98.6) 31 mmHg (35-45); PO2(98.6) 107 mmHg (60-100); SAMPLE BLOOD; SAO2 99.2 % (95.0-100.0); THB 9.9 g/dL (11.5-17.4); pH(98.6) 7.46 (7.35-7.45)
[2019-10-03 04:32] LABS: MODALITY BI PAP
--- NOTE | 2019-10-03 06:32 | Diag Imaging Result Doc PS360 ---
CHEST-PORTABLE - 10/03/2019 INDICATION: Vent COMPARISON: 10/02/2019 FINDINGS: The patient has been extubated. Lung volumes remain good. There has been improvement in the left lower lobe infiltrate. There is probably a trace left pleural effusion. There is also some trace linear atelectasis in the right lung base. IMPRESSION: Patient extubated. Improved aeration of the left lower lobe. Electronically signed by Pravin Jones 10/03/2019 6:30 AM
[2019-10-03 06:37] LABS: BASO# 0.02 X1000 (0.0-0.2); BASO% 0.1 % (0.0-0.8); HEMATOCRIT 29.7 % (37.0-47.0); HEMOGLOBIN 9.4 g/dL (12.0-16.0); IMM GRAN# 0.23 X1000 (0.0-0.04); IMM GRAN% 1.6 % (0.0-0.5); LYMPH# 1.94 X1000 (1.2-3.4); LYMPH% 13.6 % (20.5-51.1); MCH 24.9 PG (27-31); MCHC 31.6 g/dL (33-37); MCV 78.8 FL (81-99); MONO# 0.63 X1000 (0.11-0.59); MONO% 4.4 % (1.7-9.3); MPV 12.1 FL (7.4-10.4); NEUT# 11.45 X1000 (1.4-6.5); NEUT% 80.3 % (42.2-75.2); RBC 3.77 XMIL (4.2-5.4); WBC 14.27 X1000 (4.8-10.8)
[2019-10-03] MEDS: HUMALOG SUBQ SCH ×4 (06:41→21:23)
[2019-10-03 06:57] LABS: PLT 35 X1000 (130-400)
--- NOTE | 2019-10-03 07:22 | EKG Report ---
Test Performed on : 10/03/2019 06:47:15 AM Test Reason : elevated Trop Blood Pressure : / mmHG Vent. Rate : 079 BPM Atrial Rate : 079 BPM P-R Int : 136 ms QRS Dur : 080 ms QT Int : 374 ms P-R-T Axes : 034 054 -26 degrees QTc Int : 428 ms Normal sinus rhythm. Nonspecific T wave abnormality Abnormal ECG When compared with ECG of 02-OCT-2019 06:56, No significant change was found Confirmed by Pradeep CRAVEN, Davian ([id number]) on 10/03/2019 8:21:01 AM
[2019-10-03 07:24] LABS: ALB/GLOB RATIO 1.2; ALBUMIN 2.8 g/dL (3.5-5.0); CALCIUM 7.8 mg/dL (8.8-10.2); CREATININE 1.2 mg/dL (0.5-0.9); POTASSIUM 3.4 mmol/L (3.5-5.1); TOTAL BILIRUBIN 1.05 mg/dL (0.20-1.00); TOTAL PROTEIN 5.2 g/dL (6.3-8.3)
[2019-10-03] MEDS: FOLIC ACID 1 MG in NS 50 ML IV SCH (08:50)
[2019-10-03] MEDS: ARIXTRA SUBQ SCH (08:50)
[2019-10-03] MEDS: ASPIRIN PO SCH (09:22)
[2019-10-03] MEDS ORDERED: DUONEB (A & A) INH PRN (10:22)
[2019-10-03] MEDS: CORDARONE 540 MG in D5W 289.2 ML IV SCH (10:56)
[2019-10-03] MEDS: INVANZ 1 GM/NS 1 GM/50 ML IVPB IV SCH (11:30)
[2019-10-03] MEDS: DUONEB (A & A) INH SCH ×3 (11:39→21:16)
[2019-10-03 12:03] LABS: HEPATITIS PROFILE ACUTE SEE COMMENTS
[2019-10-03] MEDS ORDERED: ROMAZICON IV ONE (12:25)
[2019-10-03] MEDS: PROTONIX IV SCH (14:56)
[2019-10-03] MEDS: SODIUM CHLORIDE 0.9% INJ SCH (14:57)
--- NOTE | 2019-10-03 16:07 | INFECTIOUS DISEASE PROGRESS NO ---
DATE: 10/03/2019 PRESENT ILLNESS: The patient has the following infections. E coli pneumonia, bacteremia and urinary tract infection. The patient had immunoglobulin levels drawn yesterday and she does not have an immunoglobulin deficiency. MEDICATIONS: This is day 2 of treatment with meropenem with day 1 being the first day that the repeat blood cultures are sterile. PHYSICAL EXAMINATION: Vital Signs: Temperature is 96.8 degrees, pulse 86, respirations 19, blood pressure 126/68. General: This is an ill-appearing elderly female. She does not appear to be in any acute distress. Head/eyes/ears/nose/throat: Patient is intubated. The patient is intubated. She has an orotracheal tube in place and an orogastric tube in place. Neck: No stiffness. Lungs: Clear to auscultation. Cardiovascular: Heart rate is irregular. Abdomen: Soft and nontender. Neurologic: The patient is sedated. She did not respond to verbal stimuli. There is no tremor. Integument: No rash. LAB AND X-RAY: Chest x-ray shows improvement in the left lower lobe infiltrate. IgG is 1085 and IgA is 150. Both of these values are in the normal range for IgG and IgA respectively. Chest x- ray shows improvement in the left lower lobe infiltrate. Creatinine is 1.2. GFR is 44. The blood gases show a pH of 7.46, a PO2 of 107 and pCO2 of 31.. ASSESSMENT AND PLAN: The patient has an Escherichia coli pneumonia, urinary tract infection and bacteremia. My plan is to stop meropenem and put the patient on ertapenem. The patient does not have an immunoglobulin deficiency. COMORBIDITIES: The patient is elderly, she is a diabetic. She also has a hiatal hernia and coronary artery disease. cc: Hector Shin MD
[2019-10-03] MEDS ORDERED: CORDARONE 540 MG in D5W 289.2 ML IV ONE (17:30)
--- NOTE | 2019-10-03 17:51 | PROGRESS NOTE ---
DATE: 10/03/2019 SUBJECTIVE: Ms. Louise is a 74-year-old who was admitted on 09/28/2019. Presented with nausea, vomiting, diarrhea, weakness, and hyperglycemia. This is a 74-year-old who came in with a past medical history of CVA x2, 2008 and 2010, diabetes mellitus, insulin dependent, diabetic neuropathy, coronary artery disease status post PCI, hiatal hernia, frequent urinary tract infections. Family said she had episodes of vomiting on Wednesday, diarrhea on Wednesday, and nothing on Wednesday. Yesterday her daughter had arm surgery and when she came home her mother was lying back in a recliner and stating she felt weak and did not feel like herself. She became nauseated again and could not hold down fluids or water. The daughter checked blood sugar, it was over 500. She called EMS and brought her to [facility]. Found to be in septic shock with urinary tract infection, hyperglycemia, with DKA, white blood cell count 26,000, lactate 6.5, positive troponin, as well as acute kidney injury. The patient was transferred over here to [facility]. PAST MEDICAL HISTORY: Again, CVA, diabetes, diabetic neuropathy, coronary artery disease status post PCI, and hiatal hernia. SURGICAL HISTORY: Status post hysterectomy, elbow surgery, cholecystectomy, and hiatal hernia. So admitted with septic shock secondary to urinary tract infection, given some intravenous fluids and broad-spectrum antibiotics. Elevated troponin, possibly secondary to acute kidney injury, wanted to make sure she did not have a cardiac ischemia, transaminitis, high anion gap metabolic acidosis thought secondary to infection, severe lactic acidosis, hyperglycemia. This morning still has not woken up and family says has not really not spoken to her. OBJECTIVE: Vital Signs: Temp was 97.5 degrees, pulse 92, respirations 20, blood pressure 140/67. HEENT: Pupils are equal and round. Lungs: Clear in all lung koch. Cardiovascular: Regular rhythm and rate without murmur or S3. Abdomen: Soft. Skin: Warm and dry. LABORATORY: From this morning, creatinine is 1.2 which has come down significantly from 1.7 yesterday and actually it was above 3.3. Sodium 145, potassium 3.4, chloride 109, bicarb 21, BUN 57, creatinine was 1.2. Blood sugars 295, 218, 286, and 299. Her transaminases seem to be trending. ASSESSMENT AND PLAN: 1. Septic shock complicated by acute encephalopathy, acute kidney injury, ischemic liver, and lactic acidosis. 2. Gram-negative kim bacteremia, most likely from urinary track. 3. Left lower lobe pneumonia. Patient is currently on antibiotics. 4. Acute hypoxemic respiratory failure. Patient was on a mechanical ventilator, was able to be extubated. Pulmonary Medicine is on board. 5. Severe lactic acidosis due to septic shock. 6. Transaminitis secondary to ischemic liver injury. 7. Elevated troponin secondary to demand mismatch from septic shock. However, echocardiogram seemed to suggest atypical anterior septal hypokinesis concerning for coronary artery disease. Cardiology following. 8. Acute kidney injury. Creatinine continues to trend up. REVIEW OF ORDERS: I do not see any change. She is on aspirin 81 mg a day, folic acid 1 mg IV daily, , ertapenem 1 g IV q.24 hours, Protonix 40 mg daily, Romazicon 0.4 mg IV was given 1 time when she came in. I think she got 2 doses of that, 3 doses when she 1st came in. So, she continues to be critically sick. Repeat blood culture is still pending. This is day 5 in the hospital. Presented to the hospital because of altered mental status, urinary symptoms. Found to be hypotensive during the initial hospital stay, mental status was remarkably altered, and not breathing well, intubated to protect the airways. She seemed to be fairly stable, although still critically sick. She has been extubated, still not waking up. cc: Turner Danielle MD MTDD
[2019-10-03] MEDS ORDERED: CORDARONE 360 MG/D5W 360 MG/200 ML IV.SOLN IV ONE (18:08)
--- NOTE | 2019-10-03 19:29 | Diag Imaging Result Doc PS360 ---
EXAM: CT HEAD W/O CONTRAST INDICATION: LOC TECHNIQUE: This exam was performed using automated exposure control, adjustment of mA or kV according to patient size, and/or use of iterative reconstruction technique. COMPARISON: None. FINDINGS: There is patchy low attenuation in the periventricular and subcortical white matter suggesting moderate microangiopathy, stable. There is no definite acute infarct given the limited sensitivity of CT versus MRI. There is no discrete intracranial mass, mass effect, or intracranial hemorrhage. The surrounding soft tissues and bony structures are essentially unremarkable. IMPRESSION: Stable chronic appearing changes. No definite acute intracranial pathology. Electronically signed by Brooks Weinstein 10/03/2019 7:27 PM
[2019-10-03] MEDS: ATROVENT NEB INH SCH (23:01)
[2019-10-03] MEDS: XOPENEX NEB INH SCH ×2 (23:01→23:02)
[2019-10-04] MEDS: SOLU-CORTEF IV SCH ×4 (00:20→16:18)
[2019-10-04] MEDS ORDERED: CORDARONE 540 MG in D5W 289.2 ML IV ONE ×2 (01:00→17:30)
[2019-10-04] MEDS ORDERED: CORDARONE 360 MG/D5W 360 MG/200 ML IV.SOLN IV SCH (01:00)
[2019-10-04] MEDS: ATROVENT NEB INH SCH ×4 (03:16→21:24)
[2019-10-04] MEDS: XOPENEX NEB INH SCH ×4 (03:16→21:24)
[2019-10-04 05:00] LABS: ALLEN TEST YES; BE -0.6 mmoll (-3.0-3.0); BLOOD TYPE ARTERIAL; HCO3-(ACT) 24.5 mmoll (20.0-26.0); METHB 1.1 % (0.0-1.5); O2(CT) 12.8 mL/dL (15.0-23.0); O2HB 96.5 % (95.0-99.0); PCO2(98.6) 31 mmHg (35-45); PO2(98.6) 99 mmHg (60-100); SAMPLE BLOOD; SAO2 99.2 % (95.0-100.0); THB 9.3 g/dL (11.5-17.4); pH(98.6) 7.47 (7.35-7.45)
[2019-10-04 05:02] LABS: MODALITY BI PAP
[2019-10-04 05:10] LABS: BASO# 0.01 X1000 (0.0-0.2); BASO% 0.1 % (0.0-0.8); HEMATOCRIT 30.4 % (37.0-47.0); HEMOGLOBIN 9.7 g/dL (12.0-16.0); IMM GRAN# 0.24 X1000 (0.0-0.04); IMM GRAN% 1.7 % (0.0-0.5); LYMPH# 1.65 X1000 (1.2-3.4); MCH 25.3 PG (27-31); MCHC 31.9 g/dL (33-37); MCV 79.4 FL (81-99); MONO# 0.63 X1000 (0.11-0.59); MONO% 4.6 % (1.7-9.3); MPV 12.1 FL (7.4-10.4); NEUT# 11.21 X1000 (1.4-6.5); NEUT% 81.6 % (42.2-75.2); PLT 81 X1000 (130-400); RBC 3.83 XMIL (4.2-5.4); RDW 15.1 % (11.5-14.5); WBC 13.74 X1000 (4.8-10.8)
[2019-10-04 05:27] LABS: ALB/GLOB RATIO 1.1; ALBUMIN 2.9 g/dL (3.5-5.0); CALCIUM 8.1 mg/dL (8.8-10.2); POTASSIUM 3.3 mmol/L (3.5-5.1); TOTAL BILIRUBIN 1.67 mg/dL (0.20-1.00); TOTAL PROTEIN 5.5 g/dL (6.3-8.3)
--- NOTE | 2019-10-04 05:52 | NEPHROLOGY PROGRESS NOTE ---
DATE: 10/03/2019 SUBJECTIVE: She has been extubated and is on BiPAP. Still not really responsive. OBJECTIVE: Blood pressure 140/67, heart rate 92, respirations 20, afebrile. Intake 600 mL, output 1.5 L. Generally in no acute distress. Skin is warm and dry. Neck veins are distended. Trachea is midline. Heart is regular. No gallops. Lungs are equal, coarse. Few scattered crackles. Abdomen soft, nontender. Bowel sounds present. Extremities: Edema 2+. IMPRESSION AND PLAN: Acute kidney injury. Resolved. Electrolytes and acid-base are acceptable. Mild volume expansion in the context of hypoalbuminemia. No intervention. I will sign off today, but if I can be of further assistance please do not hesitate to call. cc: London Haines MD
[2019-10-04] MEDS: HUMALOG SUBQ SCH ×4 (06:45→20:32)
--- NOTE | 2019-10-04 07:35 | Diag Imaging Result Doc PS360 ---
EXAM: CHEST-PORTABLE INDICATION: Vent TECHNIQUE: One view COMPARISON: 10/03/2019 FINDINGS: There is continued improvement of the left lower lobe infiltrate and the trace left effusion. Atelectasis at the right lung base is also improved. No new consolidation is identified. Cardiac silhouette is stable. IMPRESSION: Interval improvement. Electronically signed by Brooks Weinstein 10/04/2019 7:33 AM
--- NOTE | 2019-10-04 07:38 | EKG Report ---
Test Performed on : 10/04/2019 06:43:46 AM Test Reason : elevated Trop Blood Pressure : / mmHG Vent. Rate : 100 BPM Atrial Rate : 100 BPM P-R Int : 154 ms QRS Dur : 082 ms QT Int : 360 ms P-R-T Axes : 026 043 090 degrees QTc Int : 464 ms Normal sinus rhythm. Nonspecific ST and T wave abnormality Abnormal ECG When compared with ECG of 03-OCT-2019 06:47, Nonspecific T wave abnormality, improved in Inferior leads Nonspecific T wave abnormality no longer evident in Anterior leads Confirmed by Pradeep CRAVEN, Davian ([id number]) on 10/04/2019 8:13:24 AM
--- NOTE | 2019-10-04 08:26 | EKG Report ---
Test Performed on : 10/03/2019 5:13:51 PM Test Reason : NO EKG ORDER FOR MUSE Blood Pressure : / mmHG Vent. Rate : 114 BPM Atrial Rate : 178 BPM P-R Int : 000 ms QRS Dur : 078 ms QT Int : 360 ms P-R-T Axes : 000 043 022 degrees QTc Int : 496 ms Atrial fibrillation. with rapid ventricular response. Nonspecific ST and T wave abnormality Abnormal ECG No previous ECGs available Confirmed by Pradeep CRAVEN, Davian ([id number]) on 10/04/2019 5:53:27 PM
[2019-10-04] MEDS: FOLIC ACID 1 MG in NS 50 ML IV SCH ×2 (08:30→09:01)
[2019-10-04] MEDS: ARIXTRA SUBQ SCH (08:30)
[2019-10-04] MEDS: ASPIRIN PO SCH (09:42)
[2019-10-04] MEDS: CORDARONE 540 MG in D5W 289.2 ML IV ONE ×2 (10:01→12:39)
[2019-10-04 10:28] LABS: INR 1.2; PROTIME 15.4 Seconds (11.0-16.0)
[2019-10-04] MEDS ORDERED: NS 250 ML ONE (11:08)
--- NOTE | 2019-10-04 12:07 | INFECTIOUS DISEASE PROGRESS NO ---
DATE: 10/04/2019 PRESENT ILLNESS: The patient has an Escherichia coli pneumonia, bacteremia, and urinary tract infection. PATIENT MEDICATIONS: This is day 3 of treatment with meropenem and then yesterday the patient was switched to ertapenem with day #1 being the first day that the repeat blood cultures were sterile. PHYSICAL EXAMINATION: Vital Signs: Temperature is 98.2 degrees, pulse 103, respirations 18, blood pressure 151/62. General: This is an ill-appearing elderly female. She is very lethargic. Head/eyes/ears/nose/throat: Patient is wearing a BiPAP mask. There is no drainage from the nose or ears. Neck: No stiffness. Lungs: Clear to auscultation. Cardiovascular: Heart rate was rapid and regular. There were some runs where the patient appeared to have an irregular heart rate due to atrial fibrillation. Abdomen: Soft and nontender. Neurologic: The patient is very lethargic. She is not receiving sedation. She did not respond to verbal stimuli. Integument: No rash noted. LAB AND X-RAY: CBC shows a white count of 13,740, hemoglobin 9.[place] [address]. Blood gases show a pH of 7.47, a PO2 of 99, a pCO2 of 31 creatinine is 1. GFR is 54. Alkaline phosphatase is 120. IgG is 1085, IgA is 157. Both of these are within normal limits. The patient's chest x-ray for today by my reading looks clear, however the radiologist has not yet read it. CT scan of the head showed no acute disease. Hepatitis panel was nonreactive. ASSESSMENT AND PLAN: Patient has an Escherichia coli pneumonia, urinary tract infection and bacteremia. I plan to continue with ertapenem and treat the patient for a total of 14 days with day 1 being the first day that the patient's repeat blood cultures were sterile. COMORBIDITIES: The patient is elderly, diabetic, and she has a hiatal hernia and coronary artery disease. cc: Hector Shin MD
[2019-10-04] MEDS: INVANZ 1 GM/NS 1 GM/50 ML IVPB IV SCH (12:24)
[2019-10-04] MEDS: CLINIMIX E 4.25%-5% SOLUTION 1,000 ML IV SCH (12:24)
[2019-10-04] MEDS: POTASSIUM CHLORIDE 20 MEQ/SWI 20 MEQ/100 ML IVPB IV SCH ×2 (12:24→13:56)
[2019-10-04] MEDS: PROTONIX IV SCH (13:56)
[2019-10-04] MEDS: SODIUM CHLORIDE 0.9% INJ SCH (13:56)
--- NOTE | 2019-10-04 14:04 | PROGRESS NOTE ---
DATE: 10/04/2019 SUBJECTIVE: She is a little more awake, and opened her eyes and has been a little more responsive. OBJECTIVE: Vital Signs: Temperature is 97.9 degrees, pulse 109, respirations 22, blood pressure 157/81. Pupils are equal and round. Lungs are clear in all lung koch. Cardiovascular Examination: Regular rhythm and rate without murmur or S3. Urine output is 2500 mL. Last several blood sugars 297, 308, 262. ASSESSMENT AND PLAN: 1. Escherichia coli pneumonia, bacteremia, urinary tract infection. This is day 3 of meropenem and yesterday had switched to ertapenem with the first day being when blood cultures were sterile. 2. She presented with shock complicated by encephalopathy and acute kidney injury, ischemic liver, and lactic acidosis. This is improved. 3. Left lower lobe pneumonia, clinically improved. 4. Acute hypoxemic respiratory failure. For a time, was on the ventilator. She has been extubated. 5. Severe lactic acidosis due to septic shock. 6. Transaminitis secondary to ischemic liver injury. 7. Elevated troponin secondary to demand-supply mismatch from septic shock. 8. Acute kidney injury, which is improved. REVIEW OF HER ORDERS: I do not see any change. REVIEW OF LABS: Today, white count 13,740, hematocrit is 30, hemoglobin is 9.7, platelet count is 81,000. Sodium 150, potassium 3.3, chloride 114, BUN 39, creatinine 1.0. cc: Turner Danielle MD
[2019-10-05] MEDS: SOLU-CORTEF IV SCH ×3 (01:41→16:19)
[2019-10-05] MEDS: XOPENEX NEB INH SCH ×4 (03:10→21:10)
[2019-10-05] MEDS: ATROVENT NEB INH SCH ×4 (03:10→21:10)
[2019-10-05 04:56] LABS: ALLEN TEST YES; BE 1.3 mmoll (-3.0-3.0); BLOOD TYPE ARTERIAL; HCO3-(ACT) 25.9 mmoll (20.0-26.0); METHB 1.5 % (0.0-1.5); O2(CT) 13.1 mL/dL (15.0-23.0); O2HB 95.9 % (95.0-99.0); PCO2(98.6) 32 mmHg (35-45); PO2(98.6) 109 mmHg (60-100); SAMPLE BLOOD; SAO2 98.9 % (95.0-100.0); THB 9.6 g/dL (11.5-17.4); pH(98.6) 7.49 (7.35-7.45)
[2019-10-05 04:58] LABS: MODALITY BI PAP
[2019-10-05 05:42] LABS: AGAP 12; ALB/GLOB RATIO 1.1; ALBUMIN 2.8 g/dL (3.5-5.0); ALKALINE PHOSPHATASE 116 U/L (32-104); BUN 33 mg/dL (8-22); CHLORIDE 116 mmol/L (98-107); COSMO 324; CREATININE 0.9 mg/dL (0.5-0.9); ESTIMATED GFR > 60; GLUCOSE 396 mg/dL (70-104); GOT 18 U/L (10-30); GPT 46 U/L (10-36); MAGNESIUM 2.3 mg/dL (1.5-2.7); POTASSIUM 3.7 mmol/L (3.5-5.1); SODIUM 151 mmol/L (136-145); TCO2 23 mmol/L (25-35); TOTAL BILIRUBIN 1.29 mg/dL (0.20-1.00); TOTAL PROTEIN 5.3 g/dL (6.3-8.3)
[2019-10-05 06:36] LABS: EOS# 0.01 X1000 (0.0-0.7); EOS% 0.1 % (0.0-10.0); HEMATOCRIT 29.2 % (37.0-47.0); HEMOGLOBIN 8.9 g/dL (12.0-16.0); IMM GRAN# 0.16 X1000 (0.0-0.04); IMM GRAN% 1.4 % (0.0-0.5); LYMPH# 1.56 X1000 (1.2-3.4); LYMPH% 13.9 % (20.5-51.1); MCHC 30.5 g/dL (33-37); MONO# 0.52 X1000 (0.11-0.59); MONO% 4.6 % (1.7-9.3); MPV 11.6 FL (7.4-10.4); PLT 133 X1000 (130-400); RBC 3.56 XMIL (4.2-5.4); RDW 15.2 % (11.5-14.5); WBC 11.25 X1000 (4.8-10.8)
[2019-10-05] MEDS: HUMALOG SUBQ SCH ×5 (06:41→20:05)
[2019-10-05] MEDS: CLINIMIX E 4.25%-5% SOLUTION 1,000 ML IV SCH ×3 (06:41→22:37)
--- NOTE | 2019-10-05 07:07 | Diag Imaging Result Doc PS360 ---
EXAM: CHEST-PORTABLE 10/05/2019 HISTORY: Vent TECHNIQUE: AP portable upright at 0451 COMMENT: There is alveolar opacity in the left lower lobe particularly behind the heart. The pleural fluid collection which was present on 10/04/2019 has diminished. There is a PICC line on the left with its tip in the spur vena cava. Otherwise there has been no significant change. IMPRESSION: Left lower lobe atelectasis versus pneumonia. Electronically signed by Stefan Carrasco 10/05/2019 7:04 AM
--- NOTE | 2019-10-05 07:23 | EKG Report ---
Test Performed on : 10/05/2019 06:55:10 AM Test Reason : elevated Trop Blood Pressure : / mmHG Vent. Rate : 093 BPM Atrial Rate : 093 BPM P-R Int : 136 ms QRS Dur : 080 ms QT Int : 390 ms P-R-T Axes : 033 051 246 degrees QTc Int : 484 ms Normal sinus rhythm. Nonspecific ST and T wave abnormality Prolonged QT Abnormal ECG When compared with ECG of 04-OCT-2019 06:43, Nonspecific T wave abnormality, worse in Inferior leads Confirmed by Pradeep CRAVEN, Davian ([id number]) on 10/05/2019 8:23:09 AM
[2019-10-05] MEDS: FOLIC ACID 1 MG in NS 50 ML IV SCH (08:14)
[2019-10-05] MEDS: ARIXTRA SUBQ SCH (08:14)
[2019-10-05] MEDS ORDERED: MISC. PHARMACY COMMUNICATION SCH (08:45)
[2019-10-05] MEDS ORDERED: CORDARONE 360 MG/D5W 360 MG/200 ML IV.SOLN IV SCH (09:00)
[2019-10-05] MEDS: ASPIRIN PO SCH (09:04)
--- NOTE | 2019-10-05 10:01 | PROGRESS NOTE ---
DATE: 10/05/2019 SUBJECTIVE: Ms. Louise is awake and she is opening her eyes in response to questions and is doing much better from that respect. OBJECTIVE: Vital Signs: She remains afebrile, temperature 98.3 degrees, pulse 102, respirations 19, blood pressure 154/86. HEENT: Pupils are equal and round. Lungs: Clear in all lung koch. Cardiovascular: Regular rhythm and rate without murmur or S3. Urine output is 4000 mL. IMAGING: Chest x-ray: Left lower lobe atelectasis versus pneumonia. ASSESSMENT AND PLAN: 1. Escherichia coli pneumonia, bacteremia, urinary tract infection. This is day 4 of meropenem and doing very well. I think that we have switched her to ertapenem. Looking at her orders, she is on ertapenem 1 gram intravenous every 24 hours. 2. She presented with shock, encephalopathy, acute kidney injury, ischemic liver, lactic acidosis. This has all improved. 3. Left lower lobe pneumonia, clinically improved radiographically. 4. Acute hypoxemic respiratory failure. Was on the ventilator for a short time and was extubated. 5. Severe lactic acidosis secondary to septic shock. 6. Transaminitis secondary to ischemic liver injury. 7. Elevated troponin secondary to demand-supply mismatch from septic shock. 8. Acute kidney injury, which is improved. REVIEW OF ORDERS: I do not see any change. REVIEW OF LAB: Hematocrit 29, hemoglobin 8.9. Electrolytes and liver functions look good. Blood sugar is running a little bit high at 324, 396, 352, and 362. Will put her on the higher end sliding scale. She is getting Clinimix at 50 mL an hour. Hopefully, she can start swallowing, and will give her some p.o. intake. cc: Turner Danielle MD
[2019-10-05] MEDS: INVANZ 1 GM/NS 1 GM/50 ML IVPB IV SCH (11:19)
--- NOTE | 2019-10-05 15:35 | INFECTIOUS DISEASE PROGRESS NO ---
DATE: 10/05/2019 PRESENT ILLNESS: The patient has an E. coli pneumonia, bacteremia, and urinary tract infection. MEDICATIONS: This is the 4th day of treatment with antibiotics, with day 1 being the first day that the plate patient's repeat blood cultures were negative. Initially, the patient was on meropenem and then she has been switched to ertapenem. PHYSICAL EXAMINATION: Vital Signs: Temperature is 98.4 degrees, pulse 98, respirations 21, blood pressure is 154/86. General: This is a chronically ill-appearing, elderly female. She is very lethargic today. Head, eyes, ears, nose, and throat: There was no drainage from the nose or ears. She has perioral lesions which look like little sores on both lips. Neck: No stiffness. Lungs: Clear to auscultation. Cardiovascular: Heart rate is regular. Abdomen: Soft and nontender. Neurologic: The patient is very lethargic. She did not respond to verbal stimuli but her daughter, who was present, said that she did respond to her talking to the patient. Extremities: The patient has a PICC in the left arm. The site is not erythematous or purulent. LAB AND X-RAY: Chest x-ray shows left lower lobe opacity. ASSESSMENT AND PLAN: The patient has Escherichia coli pneumonia, urinary tract infection, and bacteremia. She has had 4 days of treatment with antibiotics, with day 1 being the first day the repeat blood cultures are sterile. The patient initially was on meropenem and now she is on ertapenem. I plan to treat the patient for a total of 14 days. She has already had 4 days so far and therefore she will need 10 more days. COMORBIDITIES: The patient is elderly, diabetic, and she has a hiatal hernia and coronary artery disease. cc: Hector Shin MD
[2019-10-05] MEDS: PROTONIX IV SCH (16:19)
[2019-10-05] MEDS: LOPRESSOR IV SCH ×3 (16:19→23:34)
[2019-10-06] MEDS: SOLU-CORTEF IV SCH ×3 (01:16→17:05)
[2019-10-06] MEDS: XOPENEX NEB INH SCH ×4 (03:20→21:07)
[2019-10-06] MEDS: ATROVENT NEB INH SCH ×4 (03:20→21:07)
[2019-10-06] MEDS: LOPRESSOR IV SCH ×5 (04:00→20:09)
[2019-10-06 04:55] LABS: ALLEN TEST YES; BE 0.6 mmoll (-3.0-3.0); BLOOD TYPE ARTERIAL; HCO3-(ACT) 25.4 mmoll (20.0-26.0); METHB 0.8 % (0.0-1.5); O2(CT) 12.9 mL/dL (15.0-23.0); PCO2(98.6) 30 mmHg (35-45); PO2(98.6) 119 mmHg (60-100); SAMPLE BLOOD; SAO2 99.2 % (95.0-100.0); THB 9.3 g/dL (11.5-17.4)
[2019-10-06 04:56] LABS: MODALITY CANNULA
[2019-10-06 05:29] LABS: BASO# 0.01 X1000 (0.0-0.2); BASO% 0.1 % (0.0-0.8); EOS# 0.02 X1000 (0.0-0.7); EOS% 0.2 % (0.0-10.0); HEMATOCRIT 29.1 % (37.0-47.0); HEMOGLOBIN 8.7 g/dL (12.0-16.0); IMM GRAN# 0.09 X1000 (0.0-0.04); IMM GRAN% 0.8 % (0.0-0.5); LYMPH# 1.65 X1000 (1.2-3.4); LYMPH% 14.8 % (20.5-51.1); MCH 25.1 PG (27-31); MCHC 29.9 g/dL (33-37); MCV 84.1 FL (81-99); MONO# 0.43 X1000 (0.11-0.59); MONO% 3.9 % (1.7-9.3); MPV 11.5 FL (7.4-10.4); NEUT# 8.95 X1000 (1.4-6.5); NEUT% 80.2 % (42.2-75.2); PLT 160 X1000 (130-400); RBC 3.46 XMIL (4.2-5.4); RDW 15.7 % (11.5-14.5); WBC 11.15 X1000 (4.8-10.8)
[2019-10-06 05:58] LABS: AGAP 10; ALB/GLOB RATIO 1.1; ALBUMIN 2.7 g/dL (3.5-5.0); ALKALINE PHOSPHATASE 102 U/L (32-104); BUN 37 mg/dL (8-22); CHLORIDE 117 mmol/L (98-107); COSMO 325; CREATININE 0.9 mg/dL (0.5-0.9); ESTIMATED GFR > 60; GLUCOSE 389 mg/dL (70-104); GOT 14 U/L (10-30); GPT 29 U/L (10-36); POTASSIUM 3.5 mmol/L (3.5-5.1); SODIUM 151 mmol/L (136-145); TCO2 24 mmol/L (25-35); TOTAL BILIRUBIN 0.83 mg/dL (0.20-1.00); TOTAL PROTEIN 5.1 g/dL (6.3-8.3)
[2019-10-06] MEDS: HUMALOG SUBQ SCH ×5 (06:16→20:09)
--- NOTE | 2019-10-06 07:22 | Diag Imaging Result Doc PS360 ---
EXAM: CHEST-PORTABLE 10/06/2019 HISTORY: Vent TECHNIQUE: AP portable at 0532 COMMENT: There is retrocardiac opacity in the left lower lobe. This was also present on 10/05/2019 and has not changed appreciably. There is some slight increase in opacification over the right hemidiaphragm however the inspiration is less optimal than on the previous study. There is a PICC line on the left which remains with its tip in the right atrium. IMPRESSION: Pulmonary edema versus pneumonia with left lower lobe atelectasis. Electronically signed by Stefan Carrasco 10/06/2019 7:20 AM
--- NOTE | 2019-10-06 07:23 | EKG Report ---
Test Performed on : 10/06/2019 06:23:12 AM Test Reason : elevated Trop Blood Pressure : / mmHG Vent. Rate : 089 BPM Atrial Rate : 089 BPM P-R Int : 130 ms QRS Dur : 080 ms QT Int : 382 ms P-R-T Axes : 047 042 090 degrees QTc Int : 464 ms Normal sinus rhythm. Nonspecific ST and T wave abnormality Abnormal ECG When compared with ECG of 06-OCT-2019 06:22, (Unconfirmed) Sinus rhythm. has replaced Ectopic atrial rhythm. QRS axis shifted left Confirmed by Pradeep CRAVEN, Davian ([id number]) on 10/06/2019 10:47:20 AM
[2019-10-06] MEDS: ASPIRIN PO SCH (09:00)
[2019-10-06] MEDS: FOLIC ACID 1 MG in NS 50 ML IV SCH (09:17)
[2019-10-06] MEDS: ARIXTRA SUBQ SCH (09:41)
[2019-10-06] MEDS: BLISTEX MEDICATED BERRY LIP BALM TOP PRN (09:41)
--- NOTE | 2019-10-06 10:39 | INFECTIOUS DISEASE PROGRESS NO ---
DATE: 10/06/2019 PRESENT ILLNESS: The patient has an Escherichia coli pneumonia, bacteremia, and urinary tract infection. MEDICATIONS: This is the fifth day of treatment with antibiotics. The patient initially was on meropenem and now she is on ertapenem. Day 1 of treatment for the patient is the first day that the patient's repeat blood cultures were negative. PHYSICAL EXAMINATION: Vital signs: Temperature is 99, pulse 96, respirations 19, blood pressure 159/71. General: This is a chronically ill-appearing elderly female. She remains very lethargic. Head, Eyes, Ears, Nose, and Throat: No drainage noted from the nose or ears. She continues to have the perioral lesions on her lips. Neck: There appears to be no pain with movement of the neck. Lungs: Clear to auscultation. Cardiovascular: Heart rate is regular. Abdomen: Soft and nontender. Neurologic: As mentioned above, the patient is very lethargic. She did not respond to verbal stimuli. She does not have a tremor. Extremities: The patient has a PICC in her left arm, the site is not purulent or erythematous. LAB AND X-RAY: Chest x-ray shows left lower lobe pneumonia/pulmonary edema. The CBC shows a white count of 11,150, hemoglobin 8.7, platelet count 160,000. Creatinine is 0.9, GFR is greater than 60. Blood gases show a pH of 7.5, pO2 of 119, a pCO2 of 30. Hepatitis panel is nonreactive. ASSESSMENT AND PLAN: The patient has an Escherichia coli pneumonia, urinary tract infection, and bacteremia. I plan on continuing ertapenem and treating the patient for a total of 14 days. She will need 9 more days of antibiotics. COMORBIDITIES: The patient is elderly. She also has a hiatal hernia and coronary artery disease. cc: Hector Shin MD
[2019-10-06] MEDS: CLINIMIX E 4.25%-5% SOLUTION 1,000 ML IV SCH ×2 (11:37→22:29)
[2019-10-06] MEDS: INVANZ 1 GM/NS 1 GM/50 ML IVPB IV SCH (11:37)
--- NOTE | 2019-10-06 13:37 | PROGRESS NOTE ---
DATE: 10/06/2019 SUBJECTIVE: Ms. Louise is doing better. Her lips look like they are not as irritated and she is more awake and interacting and moving all extremities. OBJECTIVE: Vital Signs: Temperature 98.1 degrees, pulse 80, respirations 12, blood pressure 109/58. HEENT: Pupils are equal and round. Lungs: Clear in all lung koch. Cardiovascular: Regular rate without murmur or S3. Abdomen: Soft. Skin: Warm and dry. LABORATORY DATA: Urine output is 2200 mL. Blood sugar 251, 389, 169. Chest x-ray from this morning: Pulmonary edema versus a little pneumonia left lower lobe atelectasis. ASSESSMENT AND PLAN: 1. Escherichia coli pneumonia and bacteremia urinary tract infection. This is the 5th day of antibiotics. She is on ertapenem, day 1 of treatment. The patient's blood cultures were negative. She is improving clinically. 2. Presented with shock and encephalopathy, acute kidney injury, ischemic liver. Lactic acidosis resolved. 3. Left lower lobe pneumonia, clinically improved. 4. Acute hypoxemic respiratory failure. She was on the ventilator for a short time and is doing well off the ventilator. Breathing comfortably. 5. Severe lactic acidosis secondary to septic shock. Resolved. 6. Transaminitis which is improved. 7. Elevated troponin secondary to demand-supply mismatch for septic shock. 8. Acute kidney injury which has improved. Review of her labs this morning, white count 44230, hematocrit is 29, hemoglobin 8.7, platelet count 160,000. Sodium 151, potassium 3.5, chloride 117, BUN 37, creatinine 0.9. Blood sugars 389, 389, 318, 169. PLAN: Continue present therapy. We are going to see if we can maybe do a swallow study and see if she can start drinking some liquids and possibly begin some physical therapy. cc: Turner Danielle MD
[2019-10-06] MEDS: PROTONIX IV SCH (15:38)
[2019-10-06] MEDS: SODIUM CHLORIDE 0.9% INJ SCH (15:39)
[2019-10-07] MEDS: SOLU-CORTEF IV SCH ×3 (00:20→16:16)
[2019-10-07] MEDS: LOPRESSOR IV SCH ×6 (00:20→19:51)
[2019-10-07] MEDS: ATROVENT NEB INH SCH ×5 (02:55→22:01)
[2019-10-07] MEDS: XOPENEX NEB INH SCH ×5 (02:55→22:02)
[2019-10-07] MEDS: HUMALOG SUBQ SCH ×5 (05:59→20:59)
--- NOTE | 2019-10-07 07:04 | Diag Imaging Result Doc PS360 ---
EXAM: CHEST-PORTABLE HISTORY: Vent TECHNIQUE: Single view COMPARISON: 10/06/2019 FINDINGS: The lungs are well expanded. The heart is not enlarged. There is a left-sided PICC line. The vessels are not distended. The markings in the lower left lung are slightly less prominent. No effusion identified. IMPRESSION: Mild interval improvement Electronically signed by Mickey Powell 10/07/2019 7:02 AM
[2019-10-07] MEDS: FOLIC ACID 1 MG in NS 50 ML IV SCH (08:52)
[2019-10-07] MEDS: ARIXTRA SUBQ SCH (08:52)
[2019-10-07] MEDS: BLISTEX MEDICATED BERRY LIP BALM TOP PRN (09:03)
[2019-10-07] MEDS: ASPIRIN PO SCH (09:04)
[2019-10-07] MEDS: INVANZ 1 GM/NS 1 GM/50 ML IVPB IV SCH (11:06)
--- NOTE | 2019-10-07 12:11 | PROGRESS NOTE ---
DATE: 10/07/2019 SUBJECTIVE: Ms. Louise is doing better and she is more alert and awake. Her lips, mucosal membranes look a little less irritated. She is asking for some ice. She did not do very well on a swallow study, but she is very weak still. OBJECTIVE: Vital signs: Temperature 97.3 degrees, pulse 95, respirations 17, blood pressure 129/59. HEENT: Pupils are equal and round. Lungs: Clear in all lung koch. Cardiovascular: Regular rhythm and rate without murmur or S3. Input and Output: 2800 mL. LABORATORY DATA: Blood sugar 276, 296, 33. IMAGING: Chest x-ray, mild interval improvement. The lungs are well expanded. Heart is not enlarged. There is a left-sided PICC line appreciated. Vessels are not distended. Markings in the lower left lung are slightly less prominent. No effusion identified, so clearly doing better radiographically. ASSESSMENT AND PLAN: 1. Escherichia coli pneumonia, bacteremia, urinary tract infection. This is the 6th day of antibiotics, doing much better. 2. Presented with shock and encephalopathy, acute kidney injury, ischemic liver, lactic acidosis, doing much better. 3. Left lower lobe pneumonia, clinically much improved. 4. Acute hypoxemic respiratory failure. Was on a ventilator for a short time and is doing well off the ventilator, good air and gas exchange. 5. Severe lactic acidosis and septic shock on presentation, improved. 6. Transaminitis, improved. 7. Elevated troponin secondary to demand-supply mismatch from septic shock. This is resolved. 8. Acute kidney injury. Review of her lab, renal function is doing well. Check another CBC, Chem-12 and magnesium tomorrow. 9. Diabetes mellitus. Blood sugars are still running a little bit high. She is on a sliding scale. We are giving her Clinimix at 75 mL an hour. cc: Turner Danielle MD
[2019-10-07] MEDS: CLINIMIX E 4.25%-5% SOLUTION 1,000 ML IV SCH (12:53)
[2019-10-07] MEDS: SODIUM CHLORIDE 0.9% INJ SCH (13:57)
[2019-10-07] MEDS: PROTONIX IV SCH (13:57)
[2019-10-08] MEDS: LOPRESSOR IV SCH ×6 (00:14→20:13)
[2019-10-08] MEDS: SOLU-CORTEF IV SCH ×3 (00:14→17:05)
[2019-10-08] MEDS: CLINIMIX E 4.25%-5% SOLUTION 1,000 ML IV SCH ×2 (02:14→14:44)
[2019-10-08] MEDS: ATROVENT NEB INH SCH ×4 (03:39→22:37)
[2019-10-08] MEDS: XOPENEX NEB INH SCH ×4 (03:39→22:38)
[2019-10-08 06:25] LABS: HEMATOCRIT 26.3 % (37.0-47.0); HEMOGLOBIN 7.8 g/dL (12.0-16.0); IMM GRAN# 0.02 X1000 (0.0-0.04); IMM GRAN% 0.3 % (0.0-0.5); LYMPH# 0.92 X1000 (1.2-3.4); LYMPH% 14.3 % (20.5-51.1); MCH 25.5 PG (27-31); MCHC 29.7 g/dL (33-37); MCV 85.9 FL (81-99); MONO# 0.24 X1000 (0.11-0.59); MONO% 3.7 % (1.7-9.3); NEUT# 5.27 X1000 (1.4-6.5); NEUT% 81.7 % (42.2-75.2); PLT 211 X1000 (130-400); RBC 3.06 XMIL (4.2-5.4); RDW 15.4 % (11.5-14.5); WBC 6.45 X1000 (4.8-10.8)
[2019-10-08] MEDS: HUMALOG SUBQ SCH ×5 (06:25→20:34)
[2019-10-08 07:00] LABS: AGAP 10; ALB/GLOB RATIO 1.3; ALBUMIN 2.5 g/dL (3.5-5.0); ALKALINE PHOSPHATASE 86 U/L (32-104); BUN 45 mg/dL (8-22); CALCIUM 7.9 mg/dL (8.8-10.2); CHLORIDE 118 mmol/L (98-107); COSMO 330; CREATININE 0.8 mg/dL (0.5-0.9); ESTIMATED GFR > 60; GLUCOSE 392 mg/dL (70-104); GOT 7 U/L (10-30); GPT 12 U/L (10-36); MAGNESIUM 2.6 mg/dL (1.5-2.7); SODIUM 152 mmol/L (136-145); TCO2 24 mmol/L (25-35); TOTAL BILIRUBIN 0.63 mg/dL (0.20-1.00); TOTAL PROTEIN 4.5 g/dL (6.3-8.3)
--- NOTE | 2019-10-08 07:53 | Diag Imaging Result Doc PS360 ---
EXAM: CHEST-PORTABLE INDICATION: Vent TECHNIQUE: One view COMPARISON: 10/07/2019 FINDINGS: The left PICC line is in stable position. Very vague opacities at the lung bases likely representing atelectasis are stable. No new consolidation is identified. Cardiac silhouette is stable. IMPRESSION: Stable chest. Electronically signed by Brooks Weinstein 10/08/2019 7:51 AM
[2019-10-08] MEDS: BLISTEX MEDICATED BERRY LIP BALM TOP PRN (08:00)
[2019-10-08] MEDS: ARIXTRA SUBQ SCH (08:16)
[2019-10-08] MEDS: ASPIRIN PO SCH (08:16)
[2019-10-08] MEDS: FOLIC ACID 1 MG in NS 50 ML IV SCH (08:16)
--- NOTE | 2019-10-08 08:17 | PROGRESS NOTE ---
DATE: 10/08/2019 SUBJECTIVE: Ms. Louise is doing much better. She is awake and alert, a little stronger. We are going to try her on some clear liquids today. OBJECTIVE: Vital Signs: Temp 98.1 degrees, pulse 83, respirations 14, blood pressure 131/84. HEENT: Pupils are equal and round. Lungs: Clear in all lung koch. Cardiovascular: Regular rhythm and rate without murmur or S3. Abdomen: Soft. Skin: Warm and dry. Urine output is 2500 mL. Blood sugar 296, 283, and 380. ASSESSMENT AND PLAN: 1. Escherichia coli pneumonia, bacteremia, urinary tract infection. This is the seventh day of antibiotics. Doing much better. 2. Presented with shock, encephalopathy, acute kidney injury, ischemic liver, lactic acidosis. All of these have improved. 3. Left lower lobe pneumonia, clinically and radiographically improved. 4. Acute hypoxemic respiratory failure. Was on the ventilator for a short time. Has been extubated and doing well. 5. Severe lactic acidosis, septic shock on presentation, improved. 6. Transaminitis, improved. 7. Acute elevated troponin secondary to demand-supply mismatch from septic shock. 8. Acute kidney injury. Renal function is improving. 9. Diabetes mellitus type 2. Sugars appear under good control. REVIEW OF ORDERS: I do not see any change. REVIEW OF LABORATORY DATA: White count is 6450, hematocrit is 26, hemoglobin 7.8, MCV is 85, platelet count is 211,000. Chemistry: Sodium 152, potassium 4.0, chloride 118, BUN 45, creatinine 0.8. Blood sugar is still running above 250 for the most part. We have her on a sliding scale. I may put her on just some 70/30 morning and evening if we can get the sugars down a little bit. cc: Turner Danielle MD
[2019-10-08] MEDS: NOVOLOG MIX 70/30 SUBQ SCH ×2 (09:28→15:54)
[2019-10-08] MEDS ORDERED: INSULIN PEN NEEDLES ONE (09:32)
[2019-10-08] MEDS: MYCOSTATIN SUSP PO SCH ×4 (11:23→20:13)
--- NOTE | 2019-10-08 11:51 | INFECTIOUS DISEASE PROGRESS NO ---
DATE: 10/08/2019 PRESENT ILLNESS: The patient has an Escherichia coli pneumonia, bacteremia, and urinary tract infection. 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 MEDICATIONS: This is day 7 of treatment with antibiotics. Initially, the patient was on meropenem, and then she was switched over to ertapenem. PHYSICAL EXAMINATION: Vital Signs: Temperature is 98.8 degrees, pulse 78, respirations 17, blood pressure 130/66. General: This is a chronically ill-appearing, elderly female. She remains lethargic, but today she seems a little more alert. HEENT: She was able to hear my spoken words. I could not really decide on how good her vision was. On both of her lips, she had what I think were some vesicular lesions, and on her tongue, I think she had a white coating. Neck: No pain with movement of the neck. Lungs: Clear to auscultation. Cardiovascular: Heart rate is regular. Abdomen: Soft and nontender. Neurologic: The patient is lethargic. However, she did follow request to move her extremities. Extremities: The patient has a PICC in her left arm. The site is not purulent or bleeding. IMAGING AND LABORATORY DATA: Chest x-ray shows bibasilar opacities. Creatinine is 0.8. GFR is greater than 60. Glucose is 392. CBC shows a white count of 6450, hemoglobin 7.8, and platelet count 211,000. Liver function studies are normal. CBC shows a white count of 6450, hemoglobin 7.8, and platelet count 211,000. ASSESSMENT AND PLAN: The patient has an Escherichia coli pneumonia, urinary tract infection, and bacteremia. I plan on continuing ertapenem for a total of 14 days of antimicrobial therapy, with day 1 being the first day that the blood cultures turn negative. The patient has had 7 days of treatment and will need 7 more. The patient also has herpes mucositis involving the lips, and oral candidiasis. COMORBIDITIES: The patient is elderly. She has a hiatal hernia and coronary artery disease. cc: Hector Shin MD
[2019-10-08] MEDS ORDERED: VALTREX PO ONE (12:00)
[2019-10-08] MEDS: ZOVIRAX OINTMENT TOP SCH ×2 (12:07→17:07)
[2019-10-08] MEDS: INVANZ 1 GM/NS 1 GM/50 ML IVPB IV SCH (12:07)
[2019-10-08] MEDS: SODIUM CHLORIDE 0.9% INJ SCH (14:44)
[2019-10-08] MEDS: PROTONIX IV SCH (14:44)
[2019-10-08] MEDS: VALTREX PO SCH (20:13)
[2019-10-09] MEDS: LOPRESSOR IV SCH ×7 (00:21→23:45)
[2019-10-09] MEDS: ZOVIRAX OINTMENT TOP SCH ×5 (00:21→23:45)
[2019-10-09] MEDS: SOLU-CORTEF IV SCH ×3 (00:31→16:15)
[2019-10-09] MEDS: ATROVENT NEB INH SCH ×4 (03:18→22:17)
[2019-10-09] MEDS: XOPENEX NEB INH SCH ×4 (03:19→22:17)
[2019-10-09] MEDS: CLINIMIX E 4.25%-5% SOLUTION 1,000 ML IV SCH ×2 (04:20→16:14)
[2019-10-09] MEDS: HUMALOG SUBQ SCH ×5 (06:33→20:02)
[2019-10-09] MEDS: NOVOLOG MIX 70/30 SUBQ SCH ×2 (07:37→16:16)
--- NOTE | 2019-10-09 08:44 | INFECTIOUS DISEASE PROGRESS NO ---
DATE: 10/09/2019 See my progress note done at 9 AM. cc: Hector Shin MD MTDD
[2019-10-09] MEDS: ARIXTRA SUBQ SCH (09:22)
[2019-10-09] MEDS: MYCOSTATIN SUSP PO SCH ×4 (09:22→20:02)
[2019-10-09] MEDS: VALTREX PO SCH ×2 (09:23→20:02)
[2019-10-09] MEDS: ASPIRIN PO SCH (09:23)
[2019-10-09] MEDS: FOLIC ACID 1 MG in NS 50 ML IV SCH (09:23)
--- NOTE | 2019-10-09 09:54 | INFECTIOUS DISEASE PROGRESS NO ---
DATE: 10/09/2019 PRESENT ILLNESS: The patient has an Escherichia coli pneumonia, bacteremia, and urinary tract infection. The patient also has herpes mucositis of the lips and oral candidiasis. MEDICATIONS: The patient has been on a carbapenem antibiotic now for 8 days. At first it was meropenem and now it is ertapenem. Yesterday I started the patient on nystatin swish and swallow, p.o. Valtrex and acyclovir ointment applied to the patient's lips. The patient also is on steroids. PHYSICAL EXAMINATION: Vital Signs: Temperature is 99 degrees, pulse 86, respirations 15, blood pressure is 147/75. General: This is an ill-appearing elderly female. She is in no acute distress. Head/eyes/ears/nose/throat: She can hear my spoken words and see near objects. She talks in a hoarse voice. She has on her lips some vesicular lesions which are crusting over. She also has a white coating of her tongue. Neck: No meningismus. Lungs: Clear to auscultation. Cardiovascular: Heart rate is regular. Extremities: The patient has a PICC in the left arm. The site is not erythematous or swollen. Abdomen: Soft and nontender. Neurologic: The patient is awake. She moved her extremities when I requested her to. She was able to carry on a conversation. LAB AND X-RAY: There is no new lab or x-ray for today. ASSESSMENT AND PLAN: The patient has pneumonia, bacteremia and urinary tract infection. She also has mucositis of the lips and oral candidiasis. My plan is to continue ertapenem for a total of 14 days. Day 1 is the first day that the patient had negative blood cultures. The patient has been on carbapenem antibiotics now for 8 days and will require 6 more days. Also, I plan to continue Valtrex PO, acyclovir ointment and nystatin swish and swallow. COMORBIDITIES: The patient is elderly. She has a hiatal hernia and coronary artery disease. cc: Hector Shin MD [facility]
--- NOTE | 2019-10-09 10:28 | PROGRESS NOTE ---
DATE: 10/09/2019 SUBJECTIVE: Ms. Louise is doing much better and is stronger. She tolerated swallowing clear liquids. OBJECTIVE: Vital Signs: Temperature 98.4 degrees, pulse 80, respirations 16, blood pressure 130/69. Lungs: Clear in all lung koch. Cardiovascular: Regular rhythm and rate without murmur or S3. Abdomen: Soft, skin is warm and dry. Urine output is 2300 mL. ASSESSMENT AND PLAN: 1. Escherichia coli and pneumonia bacteremia urinary tract infection. Also has herpes mucositis of the lips and oral candidiasis so continue carbapenem. He has been on that 8 days and now is on ertapenem, started on nystatin swish and swallow. Valtrex applied to patient's lips. Also on steroids. 2. Nutrition. Hopefully, we can start doing some eating. Her lips are less painful. I think she is swallowing better. 3. General weakness, deconditioning. Continue physical therapy. 4. Renal function has improved dramatically. 5. Blood sugars still running in the 200s, so have made some adjustments on giving her some insulin 70/30. cc: Turner Danielle MD
[2019-10-09] MEDS: INVANZ 1 GM/NS 1 GM/50 ML IVPB IV SCH (11:48)
[2019-10-09] MEDS: PROTONIX IV SCH (13:23)
[2019-10-09] MEDS: SODIUM CHLORIDE 0.9% INJ SCH (13:23)
[2019-10-09] MEDS ORDERED: LASIX IV ONE (17:09)
--- NOTE | 2019-10-09 19:59 | PULMONOLOGY PROGRESS NOTE ---
DATE: 10/09/2019 SUBJECTIVE: The patient is awake and alert. She is having some difficulty with swallowing due to mucositis. She has generalized weakness. OBJECTIVE: Vital Signs: The patient has been afebrile for the last 24 hours. Blood pressure 144/63, heart rate 92, respiratory rate 14, oxygen saturation 97%. HEENT: Pupils are equal and reactive. She has herpetic outbreak in the lower lip, along with lesions in her mouth. Neck: Supple. Chest: Occasional rhonchi bilaterally. Cardiac: S1, S2. Abdomen: Soft. Extremities: Without edema. She has generalized muscular weakness. IMPRESSION: 74-year-old with: 1. Escherichia coli pneumonia. 2. 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 3. Urinary tract infection. 4. Generalized deconditioning. RECOMMENDATIONS: 1. Continue antibiotics per Infectious Disease. 2. Continue bronchial hygiene. 3. Agree with initiation of physical therapy. 4. Sips of liquids as tolerated. 5. Begin steroid tapering. cc: Joshua William MD
[2019-10-10] MEDS: ZOVIRAX OINTMENT TOP SCH ×4 (04:14→23:11)
[2019-10-10] MEDS: LOPRESSOR IV SCH ×2 (04:14→08:41)
[2019-10-10] MEDS: CLINIMIX E 4.25%-5% SOLUTION 1,000 ML IV SCH ×2 (04:19→19:30)
[2019-10-10] MEDS: ATROVENT NEB INH SCH ×2 (04:21→15:43)
[2019-10-10] MEDS: XOPENEX NEB INH SCH ×3 (04:21→15:42)
[2019-10-10] MEDS: HUMALOG SUBQ SCH ×8 (05:59→20:30)
[2019-10-10 06:51] LABS: MAGNESIUM 2.3 mg/dL (1.5-2.7); PHOSPHORUS 3.5 mg/dL (2.7-4.5)
[2019-10-10] MEDS: NOVOLOG MIX 70/30 SUBQ SCH (06:54)
[2019-10-10 07:09] LABS: EOS# 0.03 X1000 (0.0-0.7); EOS% 0.4 % (0.0-10.0); HEMATOCRIT 25.2 % (37.0-47.0); HEMOGLOBIN 7.9 g/dL (12.0-16.0); IMM GRAN# 0.02 X1000 (0.0-0.04); IMM GRAN% 0.2 % (0.0-0.5); LYMPH# 2.18 X1000 (1.2-3.4); LYMPH% 25.6 % (20.5-51.1); MCH 25.9 PG (27-31); MCHC 31.3 g/dL (33-37); MCV 82.6 FL (81-99); MONO# 0.47 X1000 (0.11-0.59); MONO% 5.5 % (1.7-9.3); MPV 11.1 FL (7.4-10.4); NEUT% 68.3 % (42.2-75.2); PLT 251 X1000 (130-400); RBC 3.05 XMIL (4.2-5.4); RDW 14.8 % (11.5-14.5)
[2019-10-10 07:18] LABS: AGAP 10; BUN 37 mg/dL (8-22); CALCIUM 7.6 mg/dL (8.8-10.2); CHLORIDE 105 mmol/L (98-107); COSMO 295; CREATININE 0.8 mg/dL (0.5-0.9); ESTIMATED GFR > 60; GLUCOSE 322 mg/dL (70-104); POTASSIUM 3.2 mmol/L (3.5-5.1); SODIUM 137 mmol/L (136-145); TCO2 22 mmol/L (25-35)
[2019-10-10] MEDS ORDERED: SOLU-CORTEF IV SCH (08:00)
--- NOTE | 2019-10-10 08:23 | Diag Imaging Result Doc PS360 ---
CHEST-PORTABLE - 10/10/2019 INDICATION: abnormal exam COMPARISON: 10/08/2019 FINDINGS: Stable left PICC line in good position. There is been improvement in the patchy bibasilar infiltrates or atelectasis. The lungs are nearly clear. Heart size is normal. IMPRESSION: Significant improvement from prior. Electronically signed by Pravin Jones 10/10/2019 8:21 AM
[2019-10-10] MEDS: ASPIRIN PO SCH (08:41)
[2019-10-10] MEDS: MYCOSTATIN SUSP PO SCH ×4 (08:41→20:30)
[2019-10-10] MEDS: ARIXTRA SUBQ SCH (08:41)
[2019-10-10] MEDS: FOLIC ACID 1 MG in NS 50 ML IV SCH (08:41)
[2019-10-10] MEDS: VALTREX PO SCH ×2 (08:41→21:30)
[2019-10-10] MEDS ORDERED: DUONEB (A & A) INH PRN (10:25)
[2019-10-10] MEDS ORDERED: LANTUS INSULIN SUBQ ONE (10:26)
--- NOTE | 2019-10-10 10:46 | INFECTIOUS DISEASE PROGRESS NO ---
DATE: 10/10/2019 PRESENT ILLNESS: The patient has an E. coli pneumonia, bacteremia, and urinary tract infection. The patient also has herpes mucositis of the lips and oral candidiasis. This morning, the nurse showed me an area on the patient's upper back, which I think also is due to herpes simplex. It consists of vesicular lesions. MEDICATIONS: The patient has been on carbapenem antibiotic for 9 days. At first it was meropenem and now it is on ertapenem. Patient is also receiving Mycostatin swish and swallow for her oral candidiasis and p.o. Valtrex and acyclovir ointment for the patient's herpes mucositis of the lips and now for the area on the upper part of the patient's back, which also appears to be due to herpes simplex. Finally, the patient is on steroids. PHYSICAL EXAMINATION: Vital Signs: Temperature is 98.8 degrees, pulse 80, respirations 16, blood pressure 138/59. General: This is an ill-appearing elderly female. She is in no acute distress and she is much more alert than she was a few days ago. Lungs: Clear to auscultation. Cardiovascular: Heart rate is regular. HEENT: Patient can hear my spoken words and see near objects. She does have some vesicular lesions and some crusted lesions on the lips. The white coating of her tongue has cleared. Abdomen: Soft and nontender. Neurologic: The patient is alert. She can move her extremities. There is no tremor. She carries on a coherent conversation. Extremities: The patient has a PICC in her left arm. The site is not erythematous or purulent. LAB AND X-RAY: Chest x-ray was done today. I looked at it and I did not see any infiltrates, but there is no radiologist reading on the x-ray at this time. CBC-WBC 8.5, hgb7.9, [id number]. Creatinine-0.8.The patient's sputum, urine, and blood grew E. coli and the repeat blood cultures were sterile. ASSESSMENT AND PLAN: Patient has pneumonia, bacteremia and urinary tract infection for which I am going to continue with ertapenem. This is day 9 of treatment and she will need 5 more days to complete a 2 week course. Also, I am going to continue with p.o. Valtrex and acyclovir ointment for the patient's herpes simplex infections and finally, I am also going to continue Mycostatin swish and swallow for the patient's oral candidiasis. COMORBIDITIES: The patient is elderly, she has a hiatal hernia and coronary artery disease. cc: Hector Shin MD MTDD
--- NOTE | 2019-10-10 10:53 | PROGRESS NOTE ---
DATE: 10/10/2019 SUBJECTIVE: This morning, Ms. Louise refers to be doing well. She is seen in the ICU. The daughter was at her bedside. OBJECTIVE: Vital signs: Her vitals, blood pressure is 132/64, pulse of 82, respiration is 16, temperature is 98.1. General: On general exam, Ms. Louise, a 74-year-old elderly female. She was in bed. She is not in any acute distress. HEENT: Mucosa is pink and moist. Anicteric. Acyanotic. Neck: Supple. Chest: Good air entry is bilaterally, There was no crepitations, no rhonchi. Cardiovascular: Regular rate and rhythm. No murmurs. No rubs. No gallops. GI: Abdomen was soft, nontender. Bowel sounds present. Extremities: No pedal edema. There is mild edema involving the upper extremities. 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 She refers to be quite weaker in the lower extremities but she is able to wiggle her toes. Mouth has multiple excoriations consisting of mucositis. LABORATORY DATA: WBC is 8.5, hemoglobin is 7.9, platelet count of 251. Chemistry is also reviewed. Potassium is 3.2, glucose was 332. The patient's repeat blood cultures have been 5 days negative. ASSESSMENT: 1. Septic shock complicated with global encephalopathy, acute kidney injury, ischemic liver disease, severe lactic acidosis, and hypoxemic respiratory failure, improved. The patient is currently more stable. 2. Escherichia coli urinary tract infection complicated with bacteremia and left lower lobe pneumonia. The patient is currently on ertapenem for a total of 14 days, per the ID note today is day 9, remaining 5 more days. 3. Mucositis. The patient is on antiviral. 4. Acute kidney injury secondary to acute tubular necrosis, resolved. 5. Elevated troponins on admission secondary to demand mismatch from septic shock, resolved. 6. Uncontrolled diabetes mellitus with a presenting A1c of 11.4. The patient has been started on scheduled insulin regimen. So in general, Ms. Louise seems to be doing a whole lot better. We are going to discontinue the Segovia catheter. We will switch most of her current IV medications to p.o. since she is tolerating meals. We are going to transfer her from the ICU to the Medical floor and get Physical Therapy to evaluate her. Ms. 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 I presume Ms. Louise will eventually need to go to rehab. cc: Salo Drummond MD
[2019-10-10] MEDS: INVANZ 1 GM/NS 1 GM/50 ML IVPB IV SCH (11:22)
[2019-10-10] MEDS ORDERED: PREDNISONE PO SCH (14:15)
--- NOTE | 2019-10-10 16:52 | PULMONOLOGY PROGRESS NOTE ---
DATE: 10/10/2019 SUBJECTIVE: The patient is awake, alert, and conversant. She continues to have odynophagia but is tolerating liquids. OBJECTIVE: Vital Signs: The patient has been afebrile for the last 24 hours. Blood pressure 119/57, heart rate 91, respiratory rate 20, oxygen saturation 98% HEENT: Pupils are equal and reactive. Oropharynx has multiple lesions including cutaneous lesions on the lips. Neck is supple. Chest reveals some crackles in the lung bases. Cardiac exam S1-S2. Abdomen is soft with positive bowel sounds. Extremities without edema. LABORATORIES: White blood count 8.5, hemoglobin 7.9, platelet count 251,000. Sodium 137, potassium 3.2, chloride 105, bicarbonate 22, BUN 37, creatinine 0.8, glucose 322. Chest x-ray reveals significant improvement in both lung bases and the lungs are nearly clear as noted by the radiologist. IMPRESSION: 74-year-old with 1. Escherichia- coli pneumonia. 2. Herpetic mucositis. 3. Urinary tract infection. 4. Deconditioning. PLAN: 1. Continue antibiotics per Infectious Disease. 2. Continue steroid tapering. 3. Continue physical therapy. 4. P.o. intake as tolerated. cc: Joshua William MD
[2019-10-10] MEDS: LOPRESSOR PO SCH (20:30)
[2019-10-11] MEDS: XOPENEX NEB INH SCH ×4 (03:39→22:12)
[2019-10-11] MEDS: ZOVIRAX OINTMENT TOP SCH ×4 (05:03→23:27)
[2019-10-11] MEDS: HUMALOG SUBQ SCH ×6 (05:59→21:14)
[2019-10-11] MEDS: PROTONIX PO SCH (05:59)
[2019-10-11 06:34] LABS: HEMATOCRIT 24.2 % (37.0-47.0); HEMOGLOBIN 7.7 g/dL (12.0-16.0); MCH 26.2 PG (27-31); MCHC 31.8 g/dL (33-37); MCV 82.3 FL (81-99); MPV 10.4 FL (7.4-10.4); RBC 2.94 XMIL (4.2-5.4); RDW 14.6 % (11.5-14.5); WBC 6.9 X1000 (4.8-10.8)
[2019-10-11 06:59] LABS: AGAP 7; ALBUMIN 2.4 g/dL (3.5-5.0); BUN 36 mg/dL (8-22); CALCIUM 7.6 mg/dL (8.8-10.2); CHLORIDE 105 mmol/L (98-107); COSMO 291; CREATININE 0.8 mg/dL (0.5-0.9); ESTIMATED GFR > 60; GLUCOSE 322 mg/dL (70-104); MAGNESIUM 2.3 mg/dL (1.5-2.7); PHOSPHORUS 2.7 mg/dL (2.7-4.5); POTASSIUM 4.1 mmol/L (3.5-5.1); SODIUM 135 mmol/L (136-145); TCO2 23 mmol/L (25-35)
[2019-10-11] MEDS ORDERED: LANTUS INSULIN SUBQ SCH (09:00)
--- NOTE | 2019-10-11 09:45 | INFECTIOUS DISEASE PROGRESS NO ---
DATE: 10/11/2019 PRESENT ILLNESS: The patient has an Escherichia coli pneumonia, bacteremia, and urinary tract infection. The patient also has herpes mucositis of the lips. Also, there is a patch of herpes lesions on the upper back. The patient also has oral candidiasis. MEDICATIONS: The patient has been on carbapenem antibiotics now for 10 days. At first, it was meropenem she was on and now it is ertapenem. The patient is receiving Mycostatin swish and swallow for her oral candidiasis and p.o. Valtrex and acyclovir ointment for the patient's herpes mucositis of the lips, and herpes cutaneous infection on the upper part of the back. PHYSICAL EXAMINATION: Vital Signs: Temperature is 98 degrees, pulse 92, respirations 18, and blood pressure is 152/48. General: This is a somewhat ill-appearing elderly female. She is in no acute distress. Head/eyes/ears/nose/throat: She can hear my spoken words and see near objects. All of the lesions around her lips have crusted over. She does not have any white patches in her mouth. Neck: No pain with movement of the neck. Lungs: Clear to auscultation. Cardiovascular: Heart rate is regular. Abdomen: Soft and nontender. Neurologic: The patient is awake. She can move her extremities. There is no tremor. Extremities: The patient has a PICC in the right arm, that site is not erythematous or swollen. LABORATORY AND X-RAY: CBC shows a white count of 6900, hemoglobin 7.7, and platelet count 271,000. Creatinine is 0.8. GFR is greater than 60. A culture taken from the patient's back is negative. Chest x-ray shows improvement in the patient's bibasilar infiltrates. ASSESSMENT AND PLAN: The patient has pneumonia, bacteremia, urinary tract infection for which the patient is receiving ertapenem. This is day 10 of treatment of a 2 week course. Therefore, the patient will need 4 more days of ertapenem. The patient's herpetic lesions are crusting over. I plan to continue Valtrex p.o. and the acyclovir ointment for the patient's herpes simplex lesions around the mouth, and on the upper pack. Finally, I am going to continue Mycostatin swish and swallow for her oral candidiasis. COMORBIDITIES: The patient is elderly and she has a hiatal hernia and coronary artery disease. cc: Hector Shin MD MTDD
[2019-10-11] MEDS: ARIXTRA SUBQ SCH (11:33)
[2019-10-11] MEDS: CLINIMIX E 4.25%-5% SOLUTION 1,000 ML IV SCH (11:33)
[2019-10-11] MEDS: MYCOSTATIN SUSP PO SCH ×4 (11:34→21:13)
[2019-10-11] MEDS: FOLIC ACID PO SCH (11:34)
[2019-10-11] MEDS: VALTREX PO SCH ×2 (11:34→21:13)
[2019-10-11] MEDS: ASPIRIN PO SCH (11:35)
[2019-10-11] MEDS: LOPRESSOR PO SCH ×2 (11:35→21:13)
[2019-10-11] MEDS: PREDNISONE PO SCH (13:52)
[2019-10-11] MEDS: INVANZ 1 GM/NS 1 GM/50 ML IVPB IV SCH (13:52)
[2019-10-11] MEDS ORDERED: LASIX IV ONE ×2 (14:59→18:00)
[2019-10-11] MEDS ORDERED: ALBUMIN 25% IV ONE (14:59)
--- NOTE | 2019-10-11 15:20 | PROGRESS NOTE ---
DATE: 10/11/2019 SUBJECTIVE: This morning Ms. Louise refers to be doing a lot better. She still remains hoarse. OBJECTIVE: Vital signs: Blood pressure is 135/50, pulse of 95, respiration is 18, temperature is 98.2 degrees. The patient is saturating 98%. General: On general exam, Ms. Louise is a 74-year- old female. She is in bed. She is not in any cardiopulmonary distress, but she looks chronically ill. HEENT: Mucosa is pink and moist. Anicteric. Acyanotic. There is a lot of crusted lesions around the lips. Neck: Supple. No JVD. Respiratory System: There is good air entry bilaterally. No crepitations. No rhonchi. No accessory muscle use. Cardiovascular: Regular rate and rhythm. No murmurs, no rubs, no gallops. GI/Abdomen: Soft, minimally distended. Some edema in the lateral aspect of the abdominal wall. There is also edema on both upper and lower extremities. 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 Mouth has multiple excoriations in the pharynx. LABORATORY DATA: WBC is 6.90, hemoglobin is 7.7, platelet count of 271. Chemistry is also reviewed. Glucose is 322. Repeat blood cultures have come back 5 days negative. ASSESSMENT: 1. Septic shock on presentation, complicated with global encephalopathy, acute kidney injury, ischemic liver disease, severe lactic acidosis and hypoxemic respiratory failure, all improved. 2. Escherichia coli urinary tract infection complicated with bacteremia and left lower lobe pneumonia. Patient is on ertapenem for a total of 14 days; today is day 10. 3. Mucositis. Patient is on anti-retroviral and also on antifungal. 4. Acute kidney injury on admission due to acute tubular necrosis, resolved. 5. Elevated troponin on admission secondary to demand mismatch, improved. 6. Uncontrolled diabetes mellitus with presenting A1c of 11.4. We will continue up titrating the patient's insulin regimen. 7. Hoarseness most likely due to endotracheal intubation. 8. Generalized weakness and deconditioning due to critical care illness polyneuropathy. Physical therapy is on board, and patient will need to be transitioned to rehabilitation. 9. Fluid overload. We are going to discontinue the Clinimix, give couple doses of Lasix between today and tomorrow. I will re-evaluate her in the morning. 10. Deep vein thrombosis prophylaxis with Arixtra. cc: Salo Drummond MD MTDD
--- NOTE | 2019-10-11 20:55 | PULMONOLOGY PROGRESS NOTE ---
DATE: 10/11/2019 SUBJECTIVE: The patient is awake, alert and conversant. She reports more fatigue than yesterday. She has some odynophagia. OBJECTIVE: The patient has been afebrile for the last 24 hours. Blood pressure 135/50, heart rate 95, respiratory rate 18, oxygen saturation 98%. HEENT: Pupils are equal and reactive. Oropharynx reveals significant mucositis involving the oral cavity and the lips. Neck is supple. Chest reveals good air entry bilaterally with crackles in the lung bases. Cardiac exam: S1, S2. Abdomen is soft, with positive bowel sounds. Extremities reveal trace to 1+ peripheral edema. LABORATORY DATA: White blood count 6.9, hemoglobin 7.7, platelet count 271,000. Sodium 135, potassium 4.1, chloride 105, bicarbonate 23, BUN 36, creatinine 0.8. IMPRESSION: A 74-year-old with: 1. Escherichia coli pneumonia. 2. Herpetic mucositis. 3. Urinary tract infection. 4. Significant deconditioning. PLAN: 1. Continue antibiotics per Infectious Disease. 2. Continue physiotherapy and incentive spirometry. 3. Continue physical therapy. 4. Oral intake for protein-calorie malnutrition as tolerated. cc: Joshua William MD
[2019-10-12] MEDS: XOPENEX NEB INH SCH ×5 (03:27→22:50)
[2019-10-12 05:33] LABS: HEMOGLOBIN 6.8 g/dL (12.0-16.0); MCHC 30.9 g/dL (33-37); MPV 10.3 FL (7.4-10.4); RBC 2.62 XMIL (4.2-5.4); RDW 14.7 % (11.5-14.5); WBC 6.31 X1000 (4.8-10.8)
[2019-10-12 05:39] LABS: AGAP 11; BUN 30 mg/dL (8-22); CALCIUM 8.1 mg/dL (8.8-10.2); CHLORIDE 108 mmol/L (98-107); COSMO 300; CREATININE 0.9 mg/dL (0.5-0.9); ESTIMATED GFR > 60; GLUCOSE 316 mg/dL (70-104); PHOSPHORUS 3.1 mg/dL (2.7-4.5); POTASSIUM 4.4 mmol/L (3.5-5.1); PREALBUMIN 15.6 mg/dL (20-40); SODIUM 141 mmol/L (136-145); TCO2 22 mmol/L (25-35)
[2019-10-12] MEDS: ZOVIRAX OINTMENT TOP SCH ×4 (06:05→22:56)
[2019-10-12] MEDS: PROTONIX PO SCH (06:49)
[2019-10-12] MEDS: HUMALOG SUBQ SCH ×7 (06:49→21:43)
--- NOTE | 2019-10-12 06:51 | INFECTIOUS DISEASE PROGRESS NO ---
DATE: 10/12/2019 PRESENT ILLNESS: The patient has the following infections: E coli pneumonia, bacteremia, and urinary tract infection. The patient also has herpes mucositis of the lips and herpes lesions on the upper part of her back, and finally the patient has oral candidiasis. MEDICATIONS: The patient has been on a carbapenem antibiotic, which at first was meropenem and now is ertapenem for 11 days. She has been receiving Mycostatin swish and swallow for her oral candidiasis, and p.o. Valtrex and acyclovir ointment applied to the patient's herpes mucositis lesions of the lips. I have also ordered for the ointment to be applied to the lesions on the upper part of her back. PHYSICAL EXAMINATION: Vital Signs: Temperature is 98.1 degrees, pulse 95, respirations 16, blood pressure 113/52. General: This is an ill-appearing elderly female. She is in no acute distress, however. Head/eyes/ears/nose/throat: She can hear my spoken words and see near objects. When she talks, it is hard for me to understand what she is saying. She has a large amount of crusting on her lips. I did not see any white patches on her tongue. Neck: No pain with movement. Lungs: Clear to auscultation. Cardiovascular: Heart rate is regular. Abdomen: Soft, nontender. Extremities: The patient has a PICC in her left arm, and the site is not erythematous or bleeding. Integument: In the upper part of the back, there are herpes simplex lesions. The blisters have been drained, and now there is just superficial erythematous lesions, but no crusting yet. Neurologic: The patient is awake. She can move her extremities, but she is very weak. When she talks, it is very hard for me to understand what she says. LABORATORY AND X-RAY: I did not see any x-ray report for today. CBC shows a white count of 6310, hemoglobin 6.8, and platelet count 233,000. Creatinine is 0.9. GFR is greater than 60. A culture was taken from the patient's upper back lesions and is sterile. ASSESSMENT AND PLAN: The patient has Escherichia coli pneumonia, bacteremia and urinary tract infection, for which she will receive ertapenem. The patient will need 3 more days of that treatment. As regarding the patient's herpetic lesions, I am going to continue both the Valtrex oral and the acyclovir ointment applied to the lesions. Finally for the patient's Mycostatin swish and swallow for her oral candidiasis, it is going to be continued also. COMORBIDITIES: The patient is elderly. She has a hiatal hernia and coronary artery disease. cc: Hector Shin MD
[2019-10-12] MEDS ORDERED: NS 500 ML IV ONE (08:56)
[2019-10-12] MEDS: LANTUS INSULIN SUBQ SCH (09:27)
[2019-10-12] MEDS: LASIX IV SCH (09:33)
[2019-10-12] MEDS: PREDNISONE PO SCH (09:36)
[2019-10-12] MEDS: LOPRESSOR PO SCH ×2 (09:36→21:42)
[2019-10-12] MEDS: VALTREX PO SCH ×2 (09:36→21:43)
[2019-10-12] MEDS: ASPIRIN PO SCH (09:36)
[2019-10-12] MEDS: FOLIC ACID PO SCH (09:36)
[2019-10-12] MEDS: MYCOSTATIN SUSP PO SCH ×4 (09:36→21:42)
[2019-10-12] MEDS: ALBUMIN 25% IV SCH (09:43)
[2019-10-12] MEDS: ARIXTRA SUBQ SCH (09:48)
--- NOTE | 2019-10-12 14:11 | PROGRESS NOTE ---
DATE: 10/12/2019 SUBJECTIVE: This morning, Ms. Louise refers to be doing fairly okay. Still remains hoarse. She has been complaining of some burning in her urine. OBJECTIVE: Vital signs: Blood pressure is 101/38, pulse of 93, respiration is 18, temperature is 98 degrees. General: Ms. Louise is a 74-year-old female. She is in bed, no distress. HEENT: Mucosa is slightly pale. Anicteric. Acyanotic. Neck: Supple. There are some blisters around the lips. Respiratory System: Good air entry bilaterally. No crepitations. No rhonchi. No accessory muscle use. Cardiovascular: Regular rate and rhythm. No murmurs, no rubs, no gallops. Gastrointestinal: Abdomen is soft, minimally distended. Mild edema on the lateral aspect of the abdominal wall. Extremities: About 1+ pedal edema. Central nervous system: Patient is awake, alert, and oriented. LABORATORY DATA: WBC is 6.31, hemoglobin is down to 6.8. Chemistry is also reviewed. Glucose was 316 early this morning, is down to 188. Prealbumin was 15.3, albumin was 3.0. Phosphorus is normal. CURRENT MEDICATIONS: Have all been reviewed. ASSESSMENT AND PLAN: 1. Septic shock on presentation, complicated with global encephalopathy, acute kidney injury, ischemic liver disease, severe lactic acidosis and hypoxemic respiratory failure, improved. 2. Escherichia coli urinary tract infection complicated with bacteremia and left lower lobe pneumonia. Patient is on ertapenem, today is day 11 for a total of 14 days. 3. Mucositis. The patient is on anti-retroviral and antifungal. 4. Acute kidney injury on admission secondary to acute tubular necrosis, resolved. 5. Elevated troponin on admission secondary to demand mismatch. 6. Uncontrolled diabetes mellitus on presentation with a presenting A1c of 11.4. The patient is on insulin regimen. 7. Hoarseness, most likely due to endotracheal intubation. 8. Fluid overload, improving. The patient did make 1500 plus of urine yesterday. The edema is getting better. 9. Normocytic anemia with hemoglobin drop to 6.8. We will group and crossmatch and will give Ms. Louise 2 units of packed red blood cells. She looks pale on physical exam as well. 10. Generalized weakness and deconditioning from prolonged hospitalization and critical care illness polyneuropathy. Physical Therapy is on board. Patient has actually been seen today. 11. Dysuria. Unsure if this all related to trauma from the Segovia catheter. Ms Louise is on IV antibiotics for the Escherichia coli. I do not think it is infected. However, we will re- culture the urine. I will also put her on Pyridium for now. cc: Salo Drummond MD
[2019-10-12] MEDS: INVANZ 1 GM/NS 1 GM/50 ML IVPB IV SCH (14:57)
--- NOTE | 2019-10-12 15:19 | Diag Imaging Result Doc PS360 ---
EXAM: CHEST-1 VIEW HISTORY: pneumonia TECHNIQUE: Single view COMPARISON: 10/10/2019 FINDINGS: No change in the left-sided PICC line. No cardiomegaly. Mild vascular prominence. No consolidation. No pleural effusions identified. IMPRESSION: Mild pulmonary edema Electronically signed by Mickey Powell 10/12/2019 3:17 PM
[2019-10-12] MEDS: PYRIDIUM PO SCH (18:26)
--- NOTE | 2019-10-12 19:55 | PULMONOLOGY PROGRESS NOTE ---
DATE: 10/12/2019 SUBJECTIVE: The patient is awake and alert. She reports generalized weakness and odynophagia but no other complaints. OBJECTIVE: Vital Signs: The patient has been afebrile for the last 24 hours. Blood pressure is 101/38, heart rate 96, respiratory rate 18, oxygen saturation 96%. HEENT: Pupils are equal and reactive. Oropharynx reveals multiple oral lesions along with crusted lesions predominantly on the lower lip. Neck: Supple. Chest: Reveals crackles at the right lung base. Cardiac exam: S1, S2. Abdomen: Soft. Extremities: Without edema. LABORATORY DATA: White blood count 6.31, hemoglobin 6.8, platelet count 233,000, sodium 141, potassium 4.4, chloride 108, bicarbonate 22, BUN 30, creatinine 0.9, glucose 302. IMAGING: Chest x-ray reveals mild blunting in the lung bases but no dense infiltrates. IMPRESSION: 1. Escherichia coli pneumonia. She is approaching completion of antibiotics. 2. Herpetic mucositis. 3. Urinary tract infection. 4. Significant deconditioning. 5. Anemia. RECOMMENDATIONS: 1. Complete antibiotic course per Infectious Disease. 2. Continue bronchodilators/bronchial hygiene. 3. Continue physical therapy. 4. Agree with transfusion today. 5. Encourage p.o. intake. cc: Joshua William MD
[2019-10-12 22:20] LABS: URINE SOURCE CATH
[2019-10-12 22:30] LABS: BILIRUBIN URINE NEGATIVE (NEGATIVE); BLOOD URINE LARGE (NEGATIVE); COLOR YELLOW; GLUCOSE URINE 200 mg/dL (NEGATIVE); KETONE URINE NEGATIVE (NEGATIVE); LEUKOCYTES URINE LARGE (NEGATIVE); NITRITE URINE NEGATIVE (NEGATIVE); PROTEIN URINE 30 mg/dL (NEGATIVE); SP GRAVITY URINE 1.011; TURBIDITY URINE HAZY (CLEAR); UROBILINOGEN URINE NORMAL (NORMAL)
[2019-10-12 22:32] LABS: UR EPITHELIAL CELLS <10 /HPF (<10); URINE BACTERIA NEGATIVE /HPF; URINE RBC 20-40 /HPF (<10); URINE WBC TNTC /HPF (<10)
[2019-10-12 22:47] LABS: URINE CASTS NONE SEEN; URINE CRYSTALS NONE SEEN; URINE SMALL ROUND CELLS NONE SEEN; URINE YEAST PRESENT
[2019-10-13] MEDS: TYLENOL PO PRN (00:56)
[2019-10-13] MEDS: XOPENEX NEB INH SCH ×4 (03:27→22:15)
[2019-10-13 05:45] LABS: HEMATOCRIT 30.6 % (37.0-47.0); MCH 27.7 PG (27-31); MCHC 32.7 g/dL (33-37); MCV 84.8 FL (81-99); MPV 10.7 FL (7.4-10.4); RBC 3.61 XMIL (4.2-5.4); RDW 14.9 % (11.5-14.5); WBC 9.23 X1000 (4.8-10.8)
[2019-10-13 05:58] LABS: AGAP 9; BUN 23 mg/dL (8-22); CALCIUM 8.1 mg/dL (8.8-10.2); CHLORIDE 107 mmol/L (98-107); COSMO 287; CREATININE 0.8 mg/dL (0.5-0.9); ESTIMATED GFR > 60; GLUCOSE 173 mg/dL (70-104); PHOSPHORUS 2.5 mg/dL (2.7-4.5); SODIUM 140 mmol/L (136-145); TCO2 24 mmol/L (25-35)
[2019-10-13] MEDS: HUMALOG SUBQ SCH ×7 (06:52→21:03)
[2019-10-13] MEDS: ZOVIRAX OINTMENT TOP SCH ×4 (06:52→22:14)
[2019-10-13] MEDS: PROTONIX PO SCH (06:53)
--- NOTE | 2019-10-13 07:37 | INFECTIOUS DISEASE PROGRESS NO ---
DATE: 10/13/2019 PRESENT ILLNESS: The patient has the following infections: E coli pneumonia, bacteremia and urinary tract infection. 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 The patient also has oral candidiasis. Today I discovered that the patient's urine has yeast in it, as well as white blood cells in it. It appears that the patient has developed a fungal urinary tract infection. However, this is asymptomatic and does not require treatment. MEDICATIONS: The patient by the first of next week will have completed her antibiotic treatment with first meropenem and now ertapenem, and she will have had a 2-week treatment course. Also, we will be able to stop the treatment for the patient's herpes mucositis and back lesions at the first of the week. We will be able to stop the acyclovir ointment and Valtrex p.o. and finally, as mentioned above, the patient does look like she has a fungal urinary tract infection, but this is asymptomatic and does not require any kind of treatment. PHYSICAL EXAMINATION: Vital Signs: Temperature is 98 degrees, pulse 75, respirations 17, blood pressure 116/48. General: This is an ill-appearing elderly female. She is in no acute distress. Head/eyes/ears/nose/throat: She can hear my spoken words and see near objects. She has diffuse crusting of her lips. She does not have any white patches on her tongue. Neck: No pain with movement. Lungs: Clear to auscultation. Cardiovascular: Heart rate is regular. Abdomen: Soft and nontender. Extremities: The left arm has a PICC in it, and the site is not erythematous or purulent. Back: On the upper part of the back, there are some herpetic lesions present that are crusting over. Neurologic: The patient is awake. She can barely move her extremities. She is very weak. Also when she talks, it is very hard for me to understand her. LAB AND X-RAY: CBC shows a white count of 9230, hemoglobin 10, platelet count 230,000. Creatinine is 0.8. GFR is greater than 60. Urinalysis shows white cells and yeast. Urine cultures pending. Chest x-ray shows pulmonary edema. ASSESSMENT AND PLAN: As regarding the patient's pneumonia, bacteremia and urinary tract infection, I am going to stop her ertapenem at the first day of next week, which will be October 16. Also, I am going to stop the patient's treatment for her herpes simplex lesions on October 16. Finally, as I mentioned above, the patient has a fungal urinary tract infection, but there is no need for treatment of it. As regarding the patient's oral candidiasis, I am going to stop her Mycostatin swish and swallow on October 16 also. COMORBIDITIES: The patient is elderly. She has a hiatal hernia and coronary artery disease. I am signing off the patient's case, and I am going to put in the computer that her antimicrobial agents that I have ordered will be discontinued on October 16. cc: Hector Shin MD
[2019-10-13] MEDS: LOPRESSOR PO SCH ×2 (08:34→21:54)
[2019-10-13] MEDS: ARIXTRA SUBQ SCH (08:34)
[2019-10-13] MEDS: PYRIDIUM PO SCH ×2 (08:34→13:00)
[2019-10-13] MEDS: ASPIRIN PO SCH (08:34)
[2019-10-13] MEDS: VALTREX PO SCH ×2 (08:34→21:54)
[2019-10-13] MEDS: FOLIC ACID PO SCH (08:34)
[2019-10-13] MEDS: LASIX IV SCH (08:35)
[2019-10-13] MEDS: MYCOSTATIN SUSP PO SCH ×4 (08:35→21:54)
[2019-10-13] MEDS: LANTUS INSULIN SUBQ SCH (13:04)
[2019-10-13] MEDS: INVANZ 1 GM/NS 1 GM/50 ML IVPB IV SCH (13:08)
[2019-10-13] MEDS ORDERED: BENADRYL PO ONE (13:16)
[2019-10-13] MEDS: ALBUMIN 25% IV SCH (13:25)
--- NOTE | 2019-10-13 15:36 | PROGRESS NOTE ---
DATE: 10/13/2019 SUBJECTIVE: This morning Ms. Louise refers to be feeling a whole lot better. She is less hoarse than before. The daughter and son and I think the [id number] were at the bedside at the time of the encounter. OBJECTIVE: Vital signs: Blood pressure is 126/53, pulse of 87, respiration is 16, temperature is 97.7 degrees. General: Ms. Louise is a 74-year-old female. She is in bed, no distress. Mucosa is pink and moist. Anicteric. Acyanotic. Neck: Supple. No JVD. There is some crusted lesions around the mouth. There is also some erythematous rash on the palate. Neck: Supple. There is no JVD. Chest: Good air entry bilateral. Did not hear any crackles or rhonchi. Cardiovascular: Regular rate and rhythm. No murmurs, no rubs, no gallops. Abdomen: Soft, minimally distended. Mild edema on the lateral aspect of the abdominal wall. Extremities: Trace of pedal edema. REHABILITATION SERVICES AIDE: Patient is awake, alert, oriented. Less hoarse. LABORATORY DATA: WBC is 9.23, hemoglobin is 10.0, platelet count of 230,000. Chemistry is also reviewed, unremarkable. The patient's phosphorus is 2.3. So far repeat urine culture shows no growth. ASSESSMENT: 1. Septic shock on presentation, complicated with global encephalopathy, acute kidney injury, ischemic liver disease, severe lactic acidosis and hypoxemic respiratory failure have all improved. 2. E. coli urinary tract infection complicated with bacteremia and left lower lobe pneumonia. The patient is on ertapenem. Today is day 12. She will complete treatment on Wednesday, a total of 14 days. 3. Mucositis, improving on anti-retroviral and antifungal. 4. Acute kidney injury on admission secondary to ATN, resolved. 5. Elevated troponin on admission secondary to demand mismatch, resolved. 6. Diabetes mellitus with presenting A1c of 11.4. The patient is on insulin regimen. Glucose better controlled. 7. Hoarseness, most likely due to endotracheal intubation, improving. 8. Normocytic anemia. The patient is status post 2 PRBC transfusion. Hemoglobin is up to 10 this morning. Patient feels a lot better. 9. Generalized weakness and deconditioning from prolonged hospitalization and critical care illness polyneuropathy. Physical therapy is on board and there is a plan to hopefully get Ms. Louise to a rehab. 10. Dysuria. Cultures negative. It is probably related to Segovia catheter during the critical care illness time. 11. Fluid overload, improved. 12. Protein calorie malnutrition. Patient is on supplement. 13. Hypophosphatemia. We will continue to replace and keep an eye on possible refeeding syndrome. cc: Salo Drummond MD
[2019-10-13] MEDS: NEUTRA-PHOS PO SCH ×2 (17:47→21:54)
--- NOTE | 2019-10-13 18:21 | PULMONOLOGY PROGRESS NOTE ---
DATE: 10/13/2019 SUBJECTIVE: The patient was sleeping upon arrival. She reports she feels significantly stronger than yesterday after receiving 2 units of packed red blood cells. She denies cough. She denies sputum production. She denies shortness of breath. She does report generalized weakness. OBJECTIVE: Patient is afebrile for the last 24 hours. Blood pressure 126/53, heart rate 86, respiratory rate 16, oxygen saturation 97%.HEENT: Pupils are equal and reactive. Oropharynx reveals healing oral mucosal lesions. She continues to have some crusting on her lips. Neck: Supple. Chest: Reveals relatively clear lung koch. Cardiac Exam: S1-S2. Abdomen: Soft. Extremities: Reveal trace edema. IMPRESSION: 74-year-old with 1. Escherichia coli. 2. Herpetic mucositis. 3. Significant deconditioning. 4. Urinary tract infection. 5. Anemia with improvement in hemoglobin following transfusion. PLAN: 1. Continue bronchial hygiene. 2. Continue physical therapy. 3. Complete antibiotic course as outlined by Infectious Disease. 4. No additional recommendations. Please call or reconsult with questions. cc: Joshua William MD
[2019-10-13] MEDS: D50W SYRINGE IV SCH (20:30)
[2019-10-14] MEDS ORDERED: PHENERGAN IV PRN (00:42)
[2019-10-14] MEDS ORDERED: SODIUM CHLORIDE 0.9% INJ PRN (01:00)
[2019-10-14] MEDS: XOPENEX NEB INH SCH ×4 (03:22→21:40)
[2019-10-14] MEDS: ZOVIRAX OINTMENT TOP SCH ×4 (05:55→23:54)
[2019-10-14] MEDS: PROTONIX PO SCH (06:13)
[2019-10-14] MEDS: HUMALOG SUBQ SCH ×9 (06:49→20:37)
[2019-10-14] MEDS: NEUTRA-PHOS PO SCH ×4 (09:20→20:37)
[2019-10-14] MEDS: LASIX IV SCH (09:20)
[2019-10-14] MEDS: ARIXTRA SUBQ SCH (09:20)
[2019-10-14] MEDS: VALTREX PO SCH ×2 (09:20→20:37)
[2019-10-14] MEDS: FOLIC ACID PO SCH (09:21)
[2019-10-14] MEDS: LOPRESSOR PO SCH ×2 (09:21→20:36)
[2019-10-14] MEDS: MYCOSTATIN SUSP PO SCH ×4 (09:21→20:36)
[2019-10-14] MEDS: ASPIRIN PO SCH (09:21)
[2019-10-14] MEDS: LANTUS INSULIN SUBQ SCH (09:29)
[2019-10-14] MEDS: NS NEB INH SCH (09:59)
[2019-10-14] MEDS: ALBUMIN 25% IV SCH (10:35)
--- NOTE | 2019-10-14 12:08 | PROGRESS NOTE ---
DATE: 10/14/2019 This morning Ms Louise refers to be doing well. She denies any new complaints. Her voice is getting more clear. OBJECTIVELY: Vital Signs: Blood pressure is 132/57, pulse of 83, respiration is 18, temperature 98.1 degrees. The patient is saturating 96% on room air. General: Ms. Louise is a 74-year- old female. She is in bed, no distress. HEENT: Mucosa is pink and moist. Anicteric. Acyanotic. Neck: Supple. No JVD. Mouth, there are some crusted lesions around the lips. Respiratory System: There is good air entry bilaterally. No crepitations. No rhonchi. Cardiovascular: Regular rate and rhythm. No murmurs, no rubs, no gallops. GI: Abdomen soft, nontender. Bowel sounds present. There is no hepatosplenomegaly. Extremities: Trace pedal edema. There is also mild edema in the upper extremities. DELIVERY ROOM SUPERVISOR: Patient is awake, alert, and oriented. LABORATORY DATA: Glucose is 257. No other laboratory data for today. Patient's medications have all been reviewed. ASSESSMENT: 1. Septic shock on presentation, complicated with global encephalopathy, acute kidney injury, ischemic liver disease, severe lactic acidosis and hypoxemic respiratory failure improved. 2. E. coli urinary tract infection complicated with bacteremia and left lower lobe pneumonia. The patient is on ertapenem. Today is day 13, tomorrow is the last day. 3. Mucositis. The patient is on antiviral and antifungal. 4. Acute kidney injury on admission due to ATN, resolved. 5. Diabetes mellitus with presenting A1c of 11.4. We will continue with insulin regimen. 6. Hoarseness secondary to endotracheal intubation, improving. 7. Normocytic anemia. Patient is status post 2 PRBC transfusions during the hospital course. H and H is stable. 8. Generalized weakness and deconditioning from prolonged hospitalization and critical care illness, polyneuropathy patient. Physical therapy is on board and there is a plan for rehab placement. 9. Mild fluid overload, improved. 10. Protein calorie malnutrition. Patient is on supplemental diet. 11. Hypophosphatemia, replaced. PLAN: In general, I think Ms. Louise is doing fairly okay. She is day 16 during the hospital. She came in extremely septic shock with multiple complications. She has gradually gotten better. We are going to continue with her current antimicrobial therapy until tomorrow, which will be the last the last day. There is a plan to get her to rehab on Wednesday. cc: Salo Drummond MD
[2019-10-14] MEDS: INVANZ 1 GM/NS 1 GM/50 ML IVPB IV SCH (12:55)
[2019-10-14] MEDS ORDERED: CALMOSEPTINE OINTMENT TOP PRN (16:46)
--- NOTE | 2019-10-14 18:56 | PULMONOLOGY PROGRESS NOTE ---
DATE: 10/14/2019 SUBJECTIVE: The patient is arousable to alert. She reports she feels better today but she remains weak. OBJECTIVE: The patient has been afebrile for the last 24 hours. Blood pressure 135/59, heart rate 96, respiratory rate 19, oxygen saturation 99%. HEENT: Pupils are equal and reactive. Oropharynx reveals healing mucositis, with significant crusting of the lower lip. Neck is supple. Chest reveals minimal crackles in the lung bases. Cardiac exam: S1, S2. Abdomen is soft, with good bowel sounds. Extremities without edema. LABORATORY DATA: No new chemistries or CBC today. IMPRESSION: A 74-year-old with: 1. Escherichia coli pneumonia. 2. Significant deconditioning. 3. Herpetic mucositis. 4. Anemia, with improvement following transfusions. PLAN: 1. Continue bronchial hygiene. 2. Continue physical therapy. 3. Follow up chest x-ray tomorrow. She appears to be resolving her pneumonia and will likely require a rehabilitation stay. cc: Joshua William MD
[2019-10-14] MEDS: REGLAN IV PRN (20:36)
[2019-10-15] MEDS: XOPENEX NEB INH SCH ×3 (03:03→16:30)
[2019-10-15] MEDS: ZOVIRAX OINTMENT TOP SCH ×4 (05:40→22:33)
[2019-10-15] MEDS: HUMALOG SUBQ SCH ×6 (06:27→20:40)
[2019-10-15] MEDS: PROTONIX PO SCH (06:27)
--- NOTE | 2019-10-15 07:21 | Diag Imaging Result Doc PS360 ---
CHEST-PORTABLE - 10/15/2019 INDICATION: abnormal exam COMPARISON: 10/12/2019 FINDINGS: There is a stable left PICC line in good position. There is improvement in the faint infiltrates in the lung bases. No pneumothorax or pleural effusion. Heart size remains normal. IMPRESSION: Improvement in the faint central and bibasilar infiltrates. Electronically signed by Pravin Jones 10/15/2019 7:18 AM
[2019-10-15] MEDS: FOLIC ACID PO SCH (08:56)
[2019-10-15] MEDS: NEUTRA-PHOS PO SCH ×4 (08:56→21:01)
[2019-10-15] MEDS: MYCOSTATIN SUSP PO SCH ×4 (08:56→21:01)
[2019-10-15] MEDS: VALTREX PO SCH ×2 (08:56→21:03)
[2019-10-15] MEDS: LOPRESSOR PO SCH ×2 (08:56→21:01)
[2019-10-15] MEDS: ARIXTRA SUBQ SCH (08:56)
[2019-10-15] MEDS: LANTUS INSULIN SUBQ SCH (08:57)
[2019-10-15] MEDS: ASPIRIN PO SCH (08:57)
[2019-10-15] MEDS: NS NEB INH SCH (09:43)
[2019-10-15] MEDS: INVANZ 1 GM/NS 1 GM/50 ML IVPB IV SCH (12:16)
--- NOTE | 2019-10-15 15:57 | PROGRESS NOTE ---
DATE: 10/15/2019 SUBJECTIVE: This morning Ms. Louise refers to be doing okay. Did not have any new complaints. OBJECTIVE: Vital signs: Blood pressure is 147/79, pulse of 93, respirations 14, temperature 97.1 degrees. General: Ms. Louise is a 74-year-old, elderly, female. She is in bed, no distress. HEENT: Mucosa is pink and moist. Anicteric. Acyanotic. Mouth, the patient has mild crusted lesions from the mucositis. Neck: Supple. Chest: Good air entry bilaterally. There were no crepitations, no rhonchi. Cardiovascular: Regular rate and rhythm. No murmurs, no rubs, no gallops. GI: Abdomen was soft, nontender. Bowel sounds present. Extremities: No pedal edema. PENOLOGY PROFESSOR: Patient is awake, alert, oriented. The patient I's and O's, urine output is 594. Patient is currently positive balance. CURRENT MEDICATIONS: Have all been reviewed. She is finishing her ertapenem today. ASSESSMENT: 1. Septic shock on presentation, complicated with global encephalopathy, acute kidney injury, ischemic liver disease, severe lactic acidosis and hypoxemic respiratory failure. Improved. 2. Escherichia coli urinary tract infection complicated with Escherichia coli bacteremia and left lower lobe pneumonia. Patient is on ertapenem. She finishes her treatment today. 3. Herpetic mucositis. Patient is on antiviral. 4. Acute kidney injury on admission due to acute tubular necrosis, resolved. 5. Diabetes mellitus with presenting A1c of 11.4. Patient is on insulin regimen. Glucose fairly stable. 6. Normocytic anemia. The patient is status post 2 PRBC transfusion. Hemoglobin and hematocrit are stable. 7. Mild fluid overload, improved. 8. Protein calorie malnutrition. Patient is on a supplemental diet. 9. Electrolyte abnormality including hypophosphatemia. We will replace and follow accordingly. 10. Generalized weakness and deconditioning from prolonged hospitalization and critical care illness polyneuropathy. Physical therapy is on board and there is a plan for rehab placement. 11. Elevated troponins, most likely due to [id number] myocardial infarction versus demand mismatch in a patient with prior history of coronary artery disease status post stents. Patient is currently on metoprolol. PLAN: So in general, I think Ms. Louise is doing well. She is 17 days in the hospital. She is remarkably improved. cc: Saol Drummond MD
--- NOTE | 2019-10-16 02:33 | PULMONOLOGY PROGRESS NOTE ---
DATE: 10/15/2019 SUBJECTIVE: The patient is awake, alert, and conversant. She is without specific complaints. OBJECTIVE: Vital Signs: The patient has been afebrile for the last 24 hours. Blood pressure 129/52, heart rate 84, respiratory rate 14, oxygen saturation 96% on room air. HEENT: Pupils are equal and reactive. Oropharynx appears clear. Neck: Supple. Chest: Minimal crackles in the lung bases. Cardiac: S1-S2. Abdomen: Soft and without hepatosplenomegaly. Extremities: Without edema. LABORATORIES: Chest x-ray reveals near complete resolution of faint basilar infiltrates. IMPRESSION: 1. Escherichia coli pneumonia 2. Herpetic mucositis 3. Urinary tract infection 4. Severe deconditioning RECOMMENDATIONS: 1. Complete antibiotics 2. Continue bronchodilator/bronchial hygiene 3. Continue physical therapy 4 . Anticipate need for physical rehabilitation cc: Joshua William MD MTDD
[2019-10-16] MEDS: XOPENEX NEB INH SCH ×5 (02:38→23:41)
[2019-10-16] MEDS: ZOVIRAX OINTMENT TOP SCH ×4 (05:35→16:46)
[2019-10-16] MEDS: PROTONIX PO SCH (06:19)
[2019-10-16] MEDS: HUMALOG SUBQ SCH ×4 (06:27→21:08)
[2019-10-16] MEDS: HUMULIN 70/30 SUBQ SCH (06:41)
[2019-10-16] MEDS: LOPRESSOR PO SCH ×2 (11:01→21:04)
[2019-10-16] MEDS: ASPIRIN PO SCH (11:01)
[2019-10-16] MEDS: ARIXTRA SUBQ SCH (11:01)
[2019-10-16] MEDS: FOLIC ACID PO SCH (11:01)
[2019-10-16] MEDS: MYCOSTATIN SUSP PO SCH ×3 (11:01→17:37)
[2019-10-16] MEDS: NEUTRA-PHOS PO SCH ×4 (11:01→21:05)
[2019-10-16] MEDS: VALTREX PO SCH (11:01)
--- NOTE | 2019-10-16 12:39 | PROGRESS NOTE ---
DATE: 10/16/2019 SUBJECTIVE: This morning, Ms. Louise refers to be doing well. Still complains about some cramps and pains in her legs. She is known to have diabetic peripheral neuropathy, and she was on gabapentin at home. OBJECTIVE: Vital signs: Blood pressure is 124/50, pulse of 80, respiration is 16, temperature is 97.9 degrees. Patient is saturating 96% on room air. General: Ms. Louise is a 74-year-old, elderly female. She is in bed, no distress. HEENT: Mucosa is pink and moist. Anicteric. Acyanotic. Neck: Supple. No JVD. Mouth has some crusted lesions from mucositis. Respiratory System: There is good air entry bilaterally. No crepitations. No rhonchi. No accessory muscle use. Cardiovascular: Regular rate and rhythm. No murmurs, no rubs, no gallops. [place] beat at 5th intercostal space, midclavicular line. GI/Abdomen: Soft, nontender. Bowel sounds present. Extremities: No pedal edema. NEGATIVE TURNER: Patient is awake, alert, oriented. Lower extremity has some mild tenderness in exploration, but there is no motor or sensory deficits. LABORATORY DATA: Glucose this morning is 148. MEDICATIONS: Have all been reviewed. ASSESSMENT: 1. Septic shock on presentation, complicated with global encephalopathy, acute kidney injury, ischemic liver disease, severe lactic acidosis and hypoxemic respiratory failure, improved. 2. Escherichia coli urinary tract infection complicated with bacteremia and left lower lobe pneumonia. Patient is on ertapenem. Today is her last day. 3. Herpetic mucositis. Patient is on Valtrex. 4. Acute kidney injury on admission due to acute tubular necrosis, resolved. 5. Diabetes mellitus with presenting A1c of 11.4. The patient is currently on insulin regimen. Glucose fairly stable. 6. Normocytic anemia. The patient is status post 2 packed red blood cell transfusion. Hemoglobin and hematocrit is stable. 7. Protein calorie malnutrition, improving with supplements. 8. Elevated troponins on admission secondary to demand mismatch versus an underlying non-ST segment elevation myocardial infarction. The patient does have a history of coronary artery disease, has stents in the past. She had been evaluated by Cardiology during the hospital course, currently asymptomatic. 9. Generalized weakness and deconditioning from prolonged hospitalization and critical care illness polyneuropathy. The patient is getting physical therapy. 10. Diabetic peripheral neuropathy. We started the patient back on her gabapentin. PLAN: In general, Ms. Louise has been in the hospital for the past 18 days, presented extremely sick in septic shock. She spent a lot of time in the unit, was intubated at some point. She has progressively gotten better. All her infection seems to have completely resolved. She is due to finish her antimicrobial therapy today, and then she will be okay to go to rehab. Ms. Louise has been remarkably weak and physically deconditioned during the hospital course. Physical therapy is on board. She was unable to participate with them yesterday, so we do not have any PT report to present to her insurance company. I understand once that is done, then hopefully we can get her to rehabilitation in the coming days. 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 cc: Salo Drummond MD MTDD
[2019-10-16] MEDS: INVANZ 1 GM/NS 1 GM/50 ML IVPB IV SCH (13:11)
[2019-10-16] MEDS: NEURONTIN PO SCH ×2 (13:11→21:08)
[2019-10-16] MEDS ORDERED: HUMULIN 70/30 SUBQ SCH (21:00)
[2019-10-17] MEDS: HUMALOG SUBQ SCH ×4 (06:26→22:14)
[2019-10-17] MEDS: PROTONIX PO SCH (06:27)
[2019-10-17] MEDS: HUMULIN 70/30 SUBQ SCH ×2 (06:27→22:15)
[2019-10-17] MEDS: ASPIRIN PO SCH (09:04)
[2019-10-17] MEDS: NEURONTIN PO SCH ×3 (09:04→17:22)
[2019-10-17] MEDS: FOLIC ACID PO SCH (09:04)
[2019-10-17] MEDS: LOPRESSOR PO SCH ×2 (09:04→22:14)
[2019-10-17] MEDS: NEUTRA-PHOS PO SCH ×4 (09:04→21:01)
[2019-10-17] MEDS: PLAVIX PO SCH (09:04)
[2019-10-17] MEDS: ARIXTRA SUBQ SCH (09:06)
[2019-10-17] MEDS: XOPENEX NEB INH SCH ×3 (09:29→21:49)
[2019-10-17] MEDS: NS NEB INH SCH ×2 (09:30→16:44)
[2019-10-17] MEDS: D50W SYRINGE IV SCH (11:33)
--- NOTE | 2019-10-17 12:16 | PROGRESS NOTE ---
DATE: 10/17/2019 SUBJECTIVE: Ms Louise is better. She is stronger and they are hoping to I think pursue to go to rehab at [facility]. She has remained afebrile. OBJECTIVE: Vital signs: Temperature 98.3 degrees, pulse 77, respirations 16, blood pressure 125/46. HEENT: Pupils are equal and round. Lungs: Clear in all lung koch. Cardiovascular: Regular rhythm and rate without murmur or S3. Abdomen: Soft. Skin: Warm and dry. LABORATORY DATA: Blood sugar 148, 150, 156. Her last one was 46 so it was a little low. ASSESSMENT AND PLAN: 1. Septic shock on presentation complicated by global encephalopathy, acute kidney injury, ischemic liver disease, severe lactic acidosis, hypoxemic respiratory failure. This is all improved, and was on the ventilator for a time, was extubated. 2. Escherichia coli urinary tract infection complicated by bacteremia, left lower lobe pneumonia. The patient had been on ertapenem. 3. Left lower lobe pneumonia. 4. Herpetic mucositis, on Valtrex. 5. Diabetes mellitus type 2. Blood sugars under good control. Her hemoglobin A1c was 11.4 on presentation, so we need to back off on her insulin as sugar is a little low. 6. Normocytic anemia. She has received 2 packs of red blood cell during this hospitalization. 7. Protein calorie malnutrition. Continue supplements. Continue to encourage p.o. intake. 8. Elevated troponins on admission. Suspect this was a supply/demand mismatch. 9. Generalized weakness, deconditioning. Continue physical therapy. Hoping to go to [facility] rehab. 10. Diabetic neuropathy. Aware. REVIEW OF ORDERS: I do not see any change. REVIEW OF LAB: From the unremarkable. Note with the sugar dipping down, I am going to decrease to the 70/30 to half the dose of what we are doing now. cc: Turner Danielle MD
[2019-10-17] MEDS: REGLAN IV PRN (15:55)
[2019-10-17] MEDS: TYLENOL PO PRN (15:55)
[2019-10-17] MEDS ORDERED: PHENERGAN IV PRN (18:24)
[2019-10-17] MEDS ORDERED: SODIUM CHLORIDE 0.9% INJ PRN (18:24)
[2019-10-18] MEDS: TYLENOL PO PRN ×2 (02:16→23:26)
[2019-10-18] MEDS: XOPENEX NEB INH SCH ×6 (03:30→23:29)
[2019-10-18] MEDS: PROTONIX PO SCH (06:18)
[2019-10-18] MEDS: HUMALOG SUBQ SCH ×4 (06:19→22:57)
[2019-10-18] MEDS: HUMULIN 70/30 SUBQ SCH ×2 (06:20→23:17)
[2019-10-18] MEDS: NEURONTIN PO SCH ×3 (08:58→17:33)
[2019-10-18] MEDS: LOPRESSOR PO SCH ×2 (08:58→23:18)
[2019-10-18] MEDS: PLAVIX PO SCH (08:58)
[2019-10-18] MEDS: ASPIRIN PO SCH (08:58)
[2019-10-18] MEDS: ARIXTRA SUBQ SCH (08:59)
[2019-10-18] MEDS: NEUTRA-PHOS PO SCH ×4 (08:59→23:18)
[2019-10-18] MEDS: FOLIC ACID PO SCH (08:59)
--- NOTE | 2019-10-18 12:25 | PROGRESS NOTE ---
DATE: 10/18/2019 SUBJECTIVE: Ms. Louise is doing better. She is still having nausea, still has some dyspepsia, and suspect still some underlying gastritis but overall, her lips are healing from herpetic sores, and she is getting liquids and food down. Her strength is improving. OBJECTIVE: She remains afebrile, temperature 99.8 degrees, pulse 94, respirations 17, blood pressure 120/49. Pupils are equal and round. Lungs are clear in all lung koch. Cardiovascular Examination: Regular rhythm and rate without murmur or S3. Abdomen is soft. Skin is warm and dry. Urine output 1500 mL. ASSESSMENT AND PLAN: 1. Septic shock on presentation complicated by global encephalopathy, acute kidney injury, ischemic liver, liver irritation, severe lactic acidosis, hypoxemic respiratory failure, and was on the ventilator for some time. She has improved in all this and has been extubated. Air and gas exchange are doing well. 2. Escherichia coli urinary tract infection complicated by bacteremia, left lower lobe pneumonia which is improving. 3. Left lower lobe pneumonia, improving. 4. 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 5. Diabetes mellitus type 2. Sugar is under good control. 6. Normocytic anemia. She received 2 packs of red blood cells during her hospitalization. 7. Protein calorie malnutrition. Encourage oral intake. 8. Elevated troponins on admission. We suspect supply-demand mismatch. 9. Generalized weakness and deconditioning. 10. Diabetic neuropathy. Aware. 11. I think we are making good progress. We are hoping to get her in [facility] tomorrow. Looking over her orders, I do not see any changes. cc: Turner Danielle MD
[2019-10-19] MEDS: PROTONIX PO SCH (06:36)
--- NOTE | 2019-10-19 07:18 | Diag Imaging Result Doc PS360 ---
EXAM: CHEST-PORTABLE 10/19/2019 HISTORY: possible aspiration TECHNIQUE: AP portable at 0605 COMMENT: There is some ill-defined opacity in the retrocardiac portion of the left lower lobe. Compared to 10/15/2019 this has improved. The left PICC line which previously had its tip in the right atrium is now directed superiorly in the internal jugular vein on the right. IMPRESSION: Improved left lower lobe atelectasis versus pneumonia. Electronically signed by Stefan Carrasco 10/19/2019 7:16 AM
[2019-10-19] MEDS ORDERED: INSULIN PEN NEEDLES ONE (08:56)
[2019-10-19] MEDS: XOPENEX NEB INH SCH ×2 (09:01→16:11)
[2019-10-19] MEDS: ASPIRIN PO SCH (09:50)
[2019-10-19] MEDS: FOLIC ACID PO SCH (09:50)
[2019-10-19] MEDS: LOPRESSOR PO SCH (09:50)
[2019-10-19] MEDS: NEURONTIN PO SCH ×3 (09:50→17:33)
[2019-10-19] MEDS: PLAVIX PO SCH (09:50)
[2019-10-19] MEDS: HUMULIN 70/30 SUBQ SCH (09:51)
[2019-10-19] MEDS: ARIXTRA SUBQ SCH (09:52)
[2019-10-19] MEDS: NEUTRA-PHOS PO SCH ×3 (09:52→17:33)
[2019-10-19] MEDS ORDERED: NS 0 ML ONE (10:41)
[2019-10-19 12:23] VITALS: BP 131/65
[2019-10-19] MEDS: HUMALOG SUBQ SCH ×3 (12:42→17:30)
--- NOTE | 2019-10-19 14:37 | DISCHARGE SUMMARY ---
ADMISSION DATE: 09/28/2019 DISCHARGE DATE: 10/19/2019 PRIMARY CARE PHYSICIAN: She has no primary care physician originally, but it appears she is followed by Dr. Ar Gary. HISTORY OF PRESENT ILLNESS: When she came in on 09/28/2019 family is at the bedside, complaining of nausea, vomiting, diarrhea, weakness, and hyperglycemia. This is a 74-year-old came in with past medical history of CVA x2 in 2008 2010, diabetes mellitus type 2 on insulin, diabetic neuropathy, coronary artery disease status post PCI, hiatal hernia, frequent urinary tract infections. Family at the bedside said she had episodes of vomiting starting on Wednesday, diarrhea on Wednesday and then daughter had her arm surgery. She came home and found her mother lying on her back in a recliner stating she felt weak and did not feel like herself became nauseated again. Not able holding water down. The daughter checked her blood sugar was over 500. Called EMS called EMS and went to [place] [facility] where she is found to have this thought she was in septic shock with urinary tract infection, hyperglycemia without DKA and a white count of 26,000. Lactate was 6.5, positive troponin, and acute kidney injury, so brought to [facility], [place], put in the ICU, started on broad-spectrum antibiotics. PAST MEDICAL HISTORY: 1. History of CVA x2 in 2008 2010. 2. Diabetes mellitus type 2. 3. Diabetic neuropathy. 4. Coronary artery disease, status post PCI. 5. Hiatal hernia status. PAST SURGICAL HISTORY: 1. Hysterectomy, elbow surgery, cholecystectomy, hiatal hernia. ADMISSION DIAGNOSES: 1. So admission diagnosis septic shock secondary to urinary tract infection, started on broad- spectrum antibiotics and moved to the unit. 2. Elevated troponin thought this was probably supply demand mismatch and EKG had some questionable changes on the ST and T-wave. Dr. Gipson of cardiology was consulted. We did get an echocardiogram. 3. Transaminitis. We thought this was a liver injury, felt she is probably in sepsis. 4. High anion gap metabolic acidosis secondary to infection, high lactate level. 5. Severe lactic acidosis. 6. Hyperglycemia, so I placed her on some insulin drip for hyperosmolar hyperglycemia. 7. Nausea and vomiting and we used Phenergan. 8. Acute kidney injury. Gave her some fluids. Try to manage her blood pressure. 9. Hypomagnesemia. We supplemented with some magnesium. 10. Chest x-ray on 09/28, possibly new tiny nodule in the left apex. Cardiology was asked to see. Dr. Gipson evaluated. Appears to have acute renal failure secondary to dehydration, septicemia, long history of diabetes mellitus, elevated troponin, possibly non ST myocardial infarction, but also could be supply demand mismatch. 11. History of three-vessel coronary are atherosclerosis. Prior myocardial infarction and stent placed in the left anterior descending in 2005. 12. History of 2 strokes in the past, disabling stroke in 2010, limited functional capacity as a consequence of that. 13. Suspect recurrent urinary tract infection and appeared to present with sepsis and lactate lactic acidosis. 14. Suspect diabetic gastroparesis and polyneuropathy, so continued aggressive hydration. HOSPITAL COURSE: Followup chest x-ray on 09/28, developing infiltrates atelectasis in the left lung base. Her mentation seemed to get worse and we electively intubated her. She was more obtunded and less responsive. Respiration rate was almost 40 blood pressure 9/3, MAP was 61 and so continued antibiotics. Asked Dr. Haines to follow up for acute kidney injury. Creatinine was stable at 3. Wallace she had acute tubular necrosis. FEMA is not low and we followed her electrolytes, supplemented as needed. Infectious Disease was asked to see in September 2013. Dr. Hector Shin saw felt she had gram-negative kim urinary tract infection with associated bacteremia, left lower lobe pneumonia, hematogenous in nature and could represent aspiration pneumonia, so continued on antibiotics and she showed some improvement. She stayed pretty obtunded for a while, able to extubate and she got a little stronger, was able to start swallowing and transaminitis improved. She had atrial fib. Her rate was controlled and felt like she was ready go to rehab on 10/19/2019. Chest x-ray: Improved left lower lobe atelectasis. DISCHARGE DIAGNOSES: 1. Presented with septic shock complicated by global encephalopathy, acute kidney injury, ischemic liver, liver irritation, severe lactic acidosis, hypoxemic respiratory failure, was on the ventilator for some time and extubated, doing well. Air and gas exchange improved. She is still on nasal cannula. 2. Escherichia coli urinary tract infection, complicated by bacteremia, left lower lobe pneumonia, which improved. 3. Left lower lobe pneumonia, improved. 4. 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 5. Diabetes mellitus type 2. Sugars under good control. 6. Normocytic anemia. She did receive 2 packs of red blood cells during the hospitalization. 7. Protein calorie malnutrition and eventually able to get her p.o. intake where she is tolerating regular food. 8. Elevated troponins on admission. Wallace this was probably supply demand mismatch. 9. Generalized weakness deconditioning. 10. Diabetic neuropathy, aware. DISCHARGE MEDICATIONS: She will get Tylenol q.6h p.r.n., DuoNebs as needed, aspirin 81 mg daily, Plavix 75 mg q.a.m., folic acid 1 mg a day. Arixtra 2.5 mg subcutaneous daily, Neurontin 600 mg p.o. t.i.d., Lopressor 12.5 mg b.i.d., Protonix 40 mg daily and she is off of all of her antibiotics. We will keep her on 2 L nasal cannula and let her go to [facility]. cc: Turner Danielle MD
== END 2019-10-19 18:01 | DRG 870 ==
LOC: P.ED 01:48 → ICU 05:02 → SUATTDRO 05:02 → ICU 06:43 → UNDODISIN 10-01 19:06 → ICU 10-05 12:14 → 1N 10-10 16:22
PROVIDERS: ATTEND Emergency Medicine